=== PATIENT | female | born 1940 | race Asian ===

== ENCOUNTER 2019-06-01 05:12 | Day surgery (SDC) | payer MEDICARE, SELFPAY ==
[2019-05-31 18:01] VITALS: BMI 23.8
[2019-06-01] VITALS (8 sets, daily range): BP systolic 110–148; BP diastolic 44–66; PULSE 60–65; RESP 8–19; TEMP 36.6; O2SAT 99–100
[2019-06-01 07:46] LABS: Basophils Absolute Auto 0.1 K/mm3 (0.0-0.1); Basophils Percent Auto 0.8 % (0.2-1.2); Eosinophils Absolute Auto 0.2 K/mm3 (0-0.3); Eosinophils Percent Auto 2.3 % (0-4.4); Hematocrit 40.7 % (37.0-47.0); Hemoglobin 12.8 g/dL (12.0-15.0); Immature Granulocyte Absolute 0.01 K/mm3 (0.00-0.031); Immature Granulocyte Percent A 0.1 % (0-0.5); Lymphocytes Percent Auto 36.1 % (18.3-44.2); Mean Corpuscular HGB Conc 31.4 g/dl (32-36); Mean Corpuscular Hemoglobin 30.8 pg (26-34); Mean Corpuscular Volume 97.8 fl (80-100); Mean Platelet Volume 9.4 fl (7.4-10.4); Monocytes Absolute Auto 0.5 K/mm3 (0.1-0.6); Monocytes Percent Auto 6.4 % (2.6-8.5); Neutrophils Absolute Auto 4.2 K/mm3 (1.3-6.7); Neutrophils Percent Auto 54.3 % (45.5-73.1); Platelet Count Result 172 k/mm3 (150-375); Red Blood Count 4.16 M/mm3 (4.2-5.4); Red Cell Distribution Width 14.8 % (11.5-14.5); White Blood Count 7.8 K/mm3 (4.5-10.0)
[2019-06-01 07:57] LABS: INR 1.1; Prothrombin Time 13.4 Seconds (11.1-14.7)
[2019-06-01 07:58] LABS: Blood Urea Nitrogen 33 mg/dL (7-17); Calcium 9.8 mg/dL (8.4-10.2); Carbon Dioxide 29 mmol/L (22-30); Chloride 104 mmol/L (98-107); Estimated CRCL calculation 22 ml/min; Estimated Glomerular Filt Rate 29; Glucose 145 mg/dL (65-105); Potassium 4.4 mmol/L (3.4-5.0); Sodium 139 mmol/L (137-145)
--- NOTE | 2019-06-01 08:43 | WPDMODSED ---
Moderate Sedation Note-Pt Data Patient Data Diagnosis: Chronic complete heart block with dual-chamber pacemaker at [facility] history of coronary artery disease status post CABG Present Complaint: no cardiovascular Procedure to be performed/Plan: pacemaker generator change anticipate placement of temporary transvenous pacemaker during this procedure as the patient is pacemaker dependent Allergies Allergy/AdvReac Type Severity Reaction Status Date / Time GILMAR Inhibitors Allergy Unknown Unknown Verified 02/21/19 14:55 losartan Allergy Unknown Unknown Verified 02/21/19 14:55 Home Medications Medication Instructions Recorded Confirmed Type flash glucose scanning reader #1 each 02/21/19 History flash glucose sensor #1 each 02/21/19 History lancets 30 gauge #25 each 02/21/19 History pen needle, diabetic 32 gauge x #100 each 02/21/19 History 1/6 semaglutide 0.25 mg SUB-Q WEEKLY 02/21/19 05/31/19 History sitagliptin 50 mg tablet 50 mg PO DAILY 02/21/19 05/31/19 History sotalol 80 mg tablet 80 mg PO BID 02/21/19 06/01/19 History glimepiride 2 mg tablet 1 mg PO QAM #90 tablet 05/30/19 05/31/19 Rx rosuvastatin 10 mg tablet 10 mg PO DAILY #90 tablet 05/30/19 05/31/19 Rx multivitamin 1 tablet PO DAILY 05/31/19 05/31/19 History omega 8-qxw-epo-fish oil 1 cap PO BID 05/31/19 05/31/19 History hydralazine 25 mg PO BID 06/01/19 06/01/19 History rivaroxaban [Xarelto] 20 mg PO DAILY 06/01/19 06/01/19 History Sedation/Anesthesia: No previous sedation/anesthesia problems (including family history). 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 Social History Social History Smoking status: Former smoker Second hand tobacco smoke exposure: No Smoking end date: 03/28/09 Alcohol intake: never Gender identity (if verbalized by the patient): Female Mod Sed Physical Exam Physical Exam Pre Procedural Exam: Normal: Appearance, Neck, Throat, Airway, Lungs, Heart Size, Heart Rate, Heart Rhythm, Neuro Exam and Extremities Hours since solid foods: 12 Hours since liquid intake: 12 Internal Medicine - PN: Obj Da Vital Signs Vital Signs: Vital Signs - 24 hr 06/01/19 07:55 Temperature 36.6 C Pulse Rate 65 Respiratory Rate 19 Blood Pressure 148/59 H Pulse Oximetry 100 Labs CBC & Chem 7: 06/01/19 07:31 06/01/19 07:31 Labs: Laboratory Results - last 24 hr 06/01/19 06/01/19 06/01/19 07:31 07:31 07:31 WBC 7.8 RBC 4.16 L Hgb 12.8 Hct 40.7 MCV 97.8 MCH 30.8 MCHC 31.4 L RDW 14.8 H Plt Count 172 MPV 9.4 Immature Gran % (Auto) 0.1 Neut % (Auto) 54.3 Lymph % (Auto) 36.1 [place] % (Auto) 6.4 Eos % (Auto) 2.3 Baso % (Auto) 0.8 Lymph # (Auto) 2.80 [place] # (Auto) 0.5 Eos # (Auto) 0.2 Baso # (Auto) 0.1 Abs Immat Gran (auto) 0.01 Absolute Neuts (auto) 4.2 Absolute Nucleated RBC 0.0 Nucleated RBC % 0.0 PT 13.4 INR 1.1 Sodium 139 Potassium 4.4 Chloride 104 Carbon Dioxide 29 BUN 33 H Creatinine 1.70 H Estim Creat Clear Calc 22 Estimated GFR 29 L Glucose 145 H Calcium 9.8 ASA Classification/Sedation ASA Classification/Sedation ASA Class: II Emergent: No Risks: Risks, benefits and alternatives explained and patient/family accepted plan for sedation. Patient re-evaluated immediately prior to sedation.
[2019-06-01] MEDS: SODIUM CHLORIDE 0.9% IV 500 ML 125 ML (09:39)
--- NOTE | 2019-06-01 10:04 | WPDCARDPROC ---
Cardiac Cath Procedure Note Date of procedure:: 06/01/19 Performing physician:: Jamari Ochoa MD Indication:: Permanent dual-chamber pacemaker at [facility] Brief clinical history:: 78-year-old woman with both coronary artery disease and complete heart block. She has had a dual-chamber pacemaker since the year 1999. Her current generator, I believe her 3rd is now at [facility] and is in need of a replacement. Procedure Procedure performed:: Patient was brought to the cardiac catheterization lab in the postabsorptive state the right femoral triangle was prepped and draped in the usual fashion. Anesthesia was given with 1% lidocaine infiltrated locally. Using modified Seldinger technique the right femoral vein was punctured and a 6 Bangladeshi vascular sheath was placed. A 5 Bangladeshi balloon tipped temporary pacing catheter was then placed into the venous circulation under under fluoroscopic guidance into the right ventricular apex. Appropriate pacing performance was demonstrated. This was done because the patient is pacemaker dependent. Following this attention was turned to the replacement of the permanent generator. The left anterior chest wall over the chronically implanted pocket was prepped and draped in the usual fashion. The patient received Ancef IV prior to the procedure. 1% lidocaine was infiltrated above the pocket and incision was then made using the plasma blade. Electrocautery was used to provide cutaneous hemostasis. The fibrous capsule of the chronically implanted pocket was encountered and opened with the plasma blade. The chronically implanted device was explanted and was visually intact. This was a very small device with a small battery so I elected to extend the pocket inferiorly using the plasma blade to accommodate the larger generator. Following this the pocket was irrigated using antibiotic infused saline. The leads were disconnected from the depleted generator and connected to the new generator as detailed below. The leads were tested using the analyzer with the results as detailed below. Because of high atrial lead impedance I elected to reprogrammed to unipolar atrial pacing which was favorable. I elected to make this decision rather than place a 3rd pacemaker lead in the subclavian vein. Fluoroscopically the leads were in unusual position with very little slack. The new generator was then connected to the leads the entire assembly was placed into the pocket and this was closed in layers using 3 0 Vicryl in interrupted fashion for the subcutaneous tissue with 4 0 Vicryl in a running subcuticular fashion for the skin. Wound was dressed with an Aquacel dressing and a pressure dressing. The patient was taken to the holding area for recovery in stable condition with there were no procedural complications that were apparent Sedation/Medication given:: fentanyl 100 mg Versed 2 mg case start time 9:00 a.m. case end time 10 a.m. sedation provided by Olivia Lees RN, trained observer Access site:: right femoral vein Estimated blood loss:: 10-15 cc Procedure note:: see above Findings:: the device implanted is a Medtronic dual-chamber pacemaker model W1DR01 dual-chamber pacemaker serial number [id number] . the device is programmed in the DDDR mode lower rate limit 30 upper rate limit 1 Prieb 0 outputs in both leads are at 2 mV at 0.4 milliseconds. The atrial lead is a Medtronic bipolar tined model 4592-4 5, serial number [id number]. P-waves are sensed 4.4 mV impedance 342 Ohms unipolar threshold 0.7 at 0.4 milliseconds. Bipolar impedance was 2451 the ventricular lead is a Medtronic bipolar tined lead model 4/90 2-52, serial [id number] . the patient is dependent there were no R-waves to sense the impedance is 437 Ohms . threshold 1 volt at 0.4 millisecond Conclusion:: successful uncomplicated explantation of failed Sammi pacemaker pulse generator due to battery at [facility] and implantation of new dual-chamber pu
--- NOTE | 2019-06-01 12:41 | SUR.PHASEII ---
DISCHARGE INSTRUCTIONS REVIEWED WITH PATIENT AND SPOUSE, ALL QUESTIONS ANSWERED, IV DISCONTINUED, PATIENT DRESSING SELF, AND PATIENT TAKEN OUT TO PRIVATE VEHICLE VIA WHEELCHAIR.
== END 2019-06-01 12:43 | disposition home or self-care (01) ==
PROVIDERS: PCP Internal Medicine; Visit Provider Specialist
PROC: 0JPT0PZ Removal of Cardiac Rhythm Related Device from Trunk Subcutaneous Tissue and Fascia, Open Approach (ICD-10-PCS; CPT 33228; principal; 2019-06-01 08:30)
DX: Z45.010 Encounter for checking and testing of cardiac pacemaker pulse generator [battery] (principal); I25.10 Atherosclerotic heart disease of native coronary artery without angina pectoris; I44.2 Atrioventricular block, complete; I48.91 Unspecified atrial fibrillation; I12.9 Hypertensive chronic kidney disease with stage 1 through stage 4 chronic kidney disease, or unspecified chronic kidney disease; N18.9 Chronic kidney disease, unspecified; E11.22 Type 2 diabetes mellitus with diabetic chronic kidney disease; E78.5 Hyperlipidemia, unspecified; Z85.42 Personal history of malignant neoplasm of other parts of uterus; Z95.1 Presence of aortocoronary bypass graft; Z79.84 Long term (current) use of oral hypoglycemic drugs; Z79.01 Long term (current) use of anticoagulants; Z87.891 Personal history of nicotine dependence
CPT/HCPCS: 33208; 33228; 36415; 80048; 85025; 85610; C1785; C1894; J0690; J1644; J2250; J3010; J7040

== ENCOUNTER 2019-06-08 08:33 | Outpatient (CLI) | payer MEDICARE, SELFPAY ==
[2019-06-08 09:15] LABS: Blood Urea Nitrogen 25 mg/dL (7-17); Calcium 9.9 mg/dL (8.4-10.2); Carbon Dioxide 28 mmol/L (22-30); Chloride 103 mmol/L (98-107); Cholesterol 157 mg/dL (0-200); Estimated Glomerular Filt Rate 34; Glucose 144 mg/dL (65-105); HDL Direct 59 mg/dL; Potassium 4.7 mmol/L (3.4-5.0); Sodium 140 mmol/L (137-145); Triglycerides 270 mg/dL (<150)
[2019-06-08 09:26] LABS: LDL Cholesterol Direct 53 mg/dL
[2019-06-08 09:34] LABS: Hemoglobin A1C 7.4 % (<5.7)
[2019-06-08 10:43] LABS: Microalbumin Urine Random > 1140.0 mg/L (0-16.7)
[2019-06-11 02:09] LABS: Homocysteine 16.4 umol/L (<10.4)
== END 2019-06-08 08:34 | disposition home or self-care (01) ==
PROVIDERS: PCP Internal Medicine; Visit Provider Internal Medicine
DX: E11.22 Type 2 diabetes mellitus with diabetic chronic kidney disease (principal); N18.2 Chronic kidney disease, stage 2 (mild); E78.2 Mixed hyperlipidemia; R79.89 Other specified abnormal findings of blood chemistry; Z79.899 Other long term (current) drug therapy; I10 Essential (primary) hypertension
CPT/HCPCS: 36415; 80048; 80061; 82043; 83036; 83090; 84443

== ENCOUNTER 2019-10-09 07:11 | Outpatient (CLI) | payer MEDICARE, SELFPAY ==
[2019-10-09 07:48] LABS: Blood Urea Nitrogen 32 mg/dL (7-17); Calcium 9.9 mg/dL (8.4-10.2); Carbon Dioxide 27 mmol/L (22-30); Chloride 102 mmol/L (98-107); Cholesterol 152 mg/dL (0-200); Estimated Glomerular Filt Rate 34; Glucose 168 mg/dL (65-105); HDL Direct 47 mg/dL; Potassium 4.8 mmol/L (3.4-5.0); Sodium 138 mmol/L (137-145); Triglycerides 352 mg/dL (<150)
[2019-10-09 07:50] LABS: Hemoglobin A1C 8.1 % (<5.7)
[2019-10-09 07:58] LABS: LDL Cholesterol Direct 46 mg/dL
[2019-10-13 16:36] LABS: Homocysteine 15.3 umol/L (<10.4)
== END 2019-10-09 07:12 | disposition home or self-care (01) ==
PROVIDERS: PCP Internal Medicine; Visit Provider Internal Medicine
DX: E11.22 Type 2 diabetes mellitus with diabetic chronic kidney disease (principal); N18.2 Chronic kidney disease, stage 2 (mild); R79.89 Other specified abnormal findings of blood chemistry; Z79.899 Other long term (current) drug therapy; E78.2 Mixed hyperlipidemia; I12.9 Hypertensive chronic kidney disease with stage 1 through stage 4 chronic kidney disease, or unspecified chronic kidney disease
CPT/HCPCS: 36415; 80048; 80061; 83036; 83090; 84443

== ENCOUNTER 2019-10-29 13:54 | Outpatient (CLI) | payer MEDICARE, SELFPAY ==
--- NOTE | ~2019-10-29 | CT_ITS ---
EXAMINATION: CT abdomen pelvis w con DATE: 10/29/2019 14:53 INDICATION: Lower abdominal pain, change in bowel habits TECHNIQUE: Computed tomography (CT) of the abdomen and pelvis was performed with 100 cc Omnipaque 350 intravenous contrast. Automated exposure control and iterative reconstruction technique were employe d. Exam dose: 269.52 mGy-cm total exam DLP. COMPARISON: 02/14/2019 CT abdomen pelvis FINDINGS: There is discoid atelectasis and/or scarring in both lower lung zones. Status post sternotomy. Pacemaker leads are noted in the right atrium and right ventricle. Mild cardi omegaly. No pericardial or pleural effusion. There is diffuse hepatic steatosis. No hepatic or pancreatic, splenic, adrenal or renal space-occupyi ng mass lesion. There is extensive calcification of the abdominal aorta; no abdominal aortic aneurysm. Prominent calc ification at the origins of the renal arteries, especially the left. No intraperitoneal or retroperit gloria or pelvic mass lesion or adenopathy or ascites. No urinary tract calculus or hydroureteronephrosis. The urinary bladder is unremarkable. Status post hysterectomy. There is soft tissue thickening of the wall of the sigmoid colon and pericolic increased fat density associated with diverticula, likely due to sigmoid diverticulitis. No apparent abscess is identified. Normal appendix. No bowel obstruction. No intraperitoneal free air. There are multiple gallstones. The gallbladder wall is approximately 1.5-2 mm thick, within upper nor mal limits. No pericholecystic fluid or stranding. No bile duct or pancreatic duct dilatation. Diffuse idiopathic skeletal hyperostosis of the thoracic spine. Severe degenerative disc disease of t he lumbar spine. No suspicious osteolytic or osteoblastic lesions are noted. IMPRESSION: Diverticulitis of the sigmoid colon; no drainable abscess is identified Diverticulosis of the left colon Hepatic steatosis Cholelithiasis Reviewed, dictated and finalized at [facility]. Reviewed, dictated and finalized at location [facility]. IMPRESSION: Diverticulitis of the sigmoid colon; no drainable abscess is ident ified Diverticulosis of the left colon Hepatic steatosis Cholelithiasis
[2019-10-29 14:15] LABS: Basophils Percent Auto 0.4 % (0.2-1.2); Eosinophils Absolute Auto 0.1 K/mm3 (0-0.3); Eosinophils Percent Auto 1.1 % (0-4.4); Hematocrit 38.4 % (37.0-47.0); Hemoglobin 12.4 g/dL (12.0-15.0); Immature Granulocyte Absolute 0.03 K/mm3 (0.00-0.031); Immature Granulocyte Percent A 0.3 % (0-0.5); Lymphocytes Absolute Auto 2.49 K/mm3 (0.9-3.2); Lymphocytes Percent Auto 27.6 % (18.3-44.2); Mean Corpuscular HGB Conc 32.3 g/dl (32-36); Mean Corpuscular Hemoglobin 31.8 pg (26-34); Mean Corpuscular Volume 98.5 fl (80-100); Monocytes Absolute Auto 0.8 K/mm3 (0.1-0.6); Monocytes Percent Auto 8.3 % (2.6-8.5); Neutrophils Absolute Auto 5.6 K/mm3 (1.3-6.7); Neutrophils Percent Auto 62.3 % (45.5-73.1); Platelet Count Result 182 k/mm3 (150-375); Red Cell Distribution Width 13.6 % (11.5-14.5)
[2019-10-29 14:31] LABS: Anion Gap 12.9 mmol/L (7-16); Blood Urea Nitrogen 29 mg/dL (7-17); Calcium 9.2 mg/dL (8.4-10.2); Carbon Dioxide 29 mmol/L (22-30); Chloride 99 mmol/L (98-107); Estimated Glomerular Filt Rate 36; Glucose 135 mg/dL (65-105); Potassium 3.9 mmol/L (3.4-5.0); Sodium 137 mmol/L (137-145)
== END 2019-10-29 13:55 | disposition home or self-care (01) ==
PROVIDERS: PCP Internal Medicine; Visit Provider Internal Medicine
DX: R10.30 Lower abdominal pain, unspecified (principal); Z79.899 Other long term (current) drug therapy
CPT/HCPCS: 36415; 74177; 80048; 85025; Q9967

== ENCOUNTER 2019-11-19 07:37 | Outpatient (CLI) | payer MEDICARE, SELFPAY ==
[2019-11-19 08:28] LABS: Alanine Aminotransferase 22 U/L (4-35); Albumin Level 3.9 g/dL (3.5-5.1); Alkaline Phosphatase 96 U/L (38-126); Anion Gap 7 mmol/L (8-16); Aspartate Amino Transferase 32 U/L (14-36); Bilirubin,Total 0.5 mg/dL (0.2-1.3); Blood Urea Nitrogen 18 mg/dL (7-17); Calcium 9.5 mg/dL (8.4-10.2); Carbon Dioxide 29 mmol/L (22-30); Chloride 104 mmol/L (98-107); Cholesterol 171 mg/dL (0-200); Estimated Glomerular Filt Rate 40; Glucose 151 mg/dL (65-105); HDL Direct 47 mg/dL; Potassium 5.2 mmol/L (3.4-5.0); Sodium 140 mmol/L (137-145); Triglycerides 401 mg/dL (<150)
[2019-11-19 08:39] LABS: LDL Cholesterol Direct 62 mg/dL
[2019-11-19 08:41] LABS: Hemoglobin A1C 7.6 % (<5.7)
[2019-11-19 09:15] LABS: Digoxin < 0.4 ng/mL (0.8-2.0)
[2019-11-21 21:51] LABS: Homocysteine 12.7 umol/L (<10.4)
[2019-11-22 08:44] LABS: Vitamin D 1,25 (OH)2 Total 32 pg/mL (18-72); Vitamin D2 1,25 (OH)2 <8 pg/mL; Vitamin D3 1,25 (OH)2 32 pg/mL
== END 2019-11-19 07:38 | disposition home or self-care (01) ==
PROVIDERS: PCP Internal Medicine; Visit Provider Internal Medicine
DX: E55.9 Vitamin D deficiency, unspecified (principal); Z79.899 Other long term (current) drug therapy; I25.10 Atherosclerotic heart disease of native coronary artery without angina pectoris; E11.9 Type 2 diabetes mellitus without complications; E78.2 Mixed hyperlipidemia; R79.89 Other specified abnormal findings of blood chemistry
CPT/HCPCS: 36415; 80048; 80061; 80076; 80162; 82652; 83036; 83090

== ENCOUNTER 2020-04-07 07:51 | Outpatient (CLI) | payer MEDICARE, SELFPAY ==
[2020-04-07 08:24] LABS: Basophils Absolute Auto 0.1 K/mm3 (0.0-0.1); Basophils Percent Auto 0.9 % (0.2-1.2); Eosinophils Absolute Auto 0.2 K/mm3 (0-0.3); Hematocrit 41.4 % (37.0-47.0); Hemoglobin 13.4 g/dL (12.0-15.0); Immature Granulocyte Absolute 0.01 K/mm3 (0.00-0.031); Immature Granulocyte Percent A 0.1 % (0-0.5); Mean Corpuscular HGB Conc 32.4 g/dl (32-36); Mean Corpuscular Hemoglobin 31.9 pg (26-34); Mean Corpuscular Volume 98.6 fl (80-100); Mean Platelet Volume 10.4 fl (7.4-10.4); Monocytes Absolute Auto 0.5 K/mm3 (0.1-0.6); Neutrophils Absolute Auto 3.9 K/mm3 (1.3-6.7); Platelet Count Result 177 k/mm3 (150-375); Red Cell Distribution Width 13.4 % (11.5-14.5); White Blood Count 8.1 K/mm3 (4.5-10.0)
[2020-04-07 08:31] LABS: Add Urine Microscopic? YES; Appearance Urine Clear (Clear); Bacteria Urine Trace /hpf; Bilirubin Urine Negative (Negative); Blood Urine Negative (Negative); Budding Yeast Urine Present /hpf; Color Urine Yellow (Yellow); Glucose Urine UA 1+ mg/dL (Negative); Ketones Urine Negative (Negative); Leukocyte Esterase Ur 3+ LEU/UL (NEGATIVE); Mucus Urine Rare /lpf; Nitrate Urine Negative (Negative); Protein Urine 3+ mg/dL (Negative); Specific Grav Ur 1.014 (1.001-1.035); Squamous Epithelial Cell Urine Moderate /hpf (Few); Transitional Epi Cells Urine Rare /hpf (None Seen); Urobilinogen Urine Negative mg/dL (<2.0); WBC Urine 31-50 /hpf (0-3)
[2020-04-07 08:38] LABS: Alanine Aminotransferase 20 U/L (4-35); Albumin Level 4.2 g/dL (3.5-5.1); Alkaline Phosphatase 79 U/L (38-126); Anion Gap 5 mmol/L (8-16); Aspartate Amino Transferase 36 U/L (14-36); Bilirubin,Total 0.5 mg/dL (0.2-1.3); Blood Urea Nitrogen 32 mg/dL (7-17); Calcium 9.7 mg/dL (8.4-10.2); Carbon Dioxide 31 mmol/L (22-30); Chloride 102 mmol/L (98-107); Cholesterol 179 mg/dL (0-200); Estimated Glomerular Filt Rate 31; Glucose 188 mg/dL (65-105); HDL Direct 62 mg/dL; Potassium 4.3 mmol/L (3.4-5.0); Sodium 138 mmol/L (137-145); Triglycerides 349 mg/dL (<150)
[2020-04-07 08:49] LABS: LDL Cholesterol Direct 57 mg/dL
[2020-04-07 09:14] LABS: Creatinine Urine 87.2 mg/dL
[2020-04-07 10:12] LABS: Microalbumin Urine Random > 1140.0 mg/L (0-16.7)
[2020-04-07 10:49] LABS: Hemoglobin A1C 8.6 % (<5.7)
== END 2020-04-07 07:52 | disposition home or self-care (01) ==
PROVIDERS: PCP Internal Medicine; Visit Provider Internal Medicine
DX: E11.22 Type 2 diabetes mellitus with diabetic chronic kidney disease (principal); I12.9 Hypertensive chronic kidney disease with stage 1 through stage 4 chronic kidney disease, or unspecified chronic kidney disease; N18.2 Chronic kidney disease, stage 2 (mild); E78.2 Mixed hyperlipidemia; Z51.81 Encounter for therapeutic drug level monitoring; Z79.899 Other long term (current) drug therapy
CPT/HCPCS: 36415; 80053; 80061; 81001; 82043; 83036; 85025

== ENCOUNTER 2020-04-17 08:45 | Outpatient (CLI) | payer MEDICARE, SELFPAY ==
--- NOTE | ~2020-04-17 | US_ITS ---
EXAMINATION: US renal BI EXAM DATE: 04/17/2020 09:22 INDICATION: R79.89 - Other specified abnormal findings of blood chemistry. Abnormal labs. TECHNIQUE: Multiple grayscale and Doppler images of the kidneys were obtained (by a technologist who performed the scan) and subsequently reviewed. There is no prior study for comparison. FINDINGS: Incidental note made of hepatic steatosis. There is bilateral renal cortical thinning. Right kidney: There is normal contour and echogenicity. It measures 9.5 x 3.7 x 3.9 centimeters. Th ere are no focal renal lesions identified. There is no hydronephrosis. Left kidney: There is normal contour and echogenicity. It measures 9.1 x 3.3 x 4.7 centimeters. The re are no focal renal lesions identified. There is no hydronephrosis. Bladder unremarkable. Bilateral ureteral jets were confirmed. IMPRESSION: 1. Mild bilateral renal atrophy. 2. No hydronephrosis. 3. Hepatic steatosis. Reviewed, dictated and finalized at location [facility]. 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
== END 2020-04-17 08:46 | disposition home or self-care (01) ==
PROVIDERS: PCP Internal Medicine; Visit Provider Internal Medicine
DX: R79.89 Other specified abnormal findings of blood chemistry (principal); N26.1 Atrophy of kidney (terminal); K76.0 Fatty (change of) liver, not elsewhere classified
CPT/HCPCS: 76775

== ENCOUNTER 2020-04-25 07:48 | Outpatient (CLI) | payer MEDICARE, SELFPAY ==
[2020-04-29 12:55] LABS: Albumin 24 Hr Urine 68 %; Creatinine, 24 Hr Urine 0.35 g/24 h (0.50-2.15); Total Protein/Creatinine Ratio 2798 mg/g creat (<115)
== END 2020-04-25 07:49 | disposition home or self-care (01) ==
LOC: ANHLAB 07:50
PROVIDERS: PCP Internal Medicine; Visit Provider Internal Medicine
DX: R79.89 Other specified abnormal findings of blood chemistry (principal); E11.22 Type 2 diabetes mellitus with diabetic chronic kidney disease; N18.2 Chronic kidney disease, stage 2 (mild)
CPT/HCPCS: 81050; 82570; 84156; 84166

== ENCOUNTER 2020-07-02 08:44 | Outpatient (CLI) | payer MEDICARE, SELFPAY ==
[2020-07-02 09:52] LABS: Albumin Level 4.2 g/dL (3.5-5.1); Anion Gap 7 mmol/L (8-16); Blood Urea Nitrogen 33 mg/dL (7-17); Calcium 9.3 mg/dL (8.4-10.2); Carbon Dioxide 29 mmol/L (22-30); Chloride 99 mmol/L (98-107); Estimated Glomerular Filt Rate 29; Glucose 247 mg/dL (65-105); Phosphorus 4.4 mg/dL (2.5-4.5); Potassium 4.6 mmol/L (3.4-5.0); Sodium 135 mmol/L (137-145)
[2020-07-02 09:54] LABS: Creatinine Urine 24.7 mg/dL; Total Protein Urine Random 111 mg/dL; Ur Ttl Prot Creatinine Ratio 4.49 mg/mg (0-0.20)
[2020-07-02 09:58] LABS: Complement C3 136 mg/dL (88-165)
[2020-07-02 10:13] LABS: Sodium Urine Random 19 meq/L
[2020-07-02 10:14] LABS: Eosinophil Urine None Seen % (None Seen)
[2020-07-06 06:14] LABS: Albumin 3.5 g/dL (3.8-4.8); Alpha 1 Globulin 0.3 g/dL (0.2-0.3); Alpha 2 Globulin 0.9 g/dL (0.5-0.9); Beta 1 Globulin 0.6 g/dL (0.4-0.6); Gamma Globulin 1.5 g/dL (0.8-1.7); Protein, Total 7.2 g/dL (6.1-8.1)
[2020-07-07 22:34] LABS: Anti Nuclear Antibody Titer >=1:1280 (Negative)
[2020-07-08 05:45] LABS: Creatinine, Random Urine 26 mg/dL (20-275); Total Protein/Creatinine Ratio 3423 mg/g creat (21-161)
[2020-07-10 11:47] LABS: ANCA Screen Negative (Negative)
== END 2020-07-02 08:45 | disposition home or self-care (01) ==
PROVIDERS: PCP Internal Medicine; Visit Provider Internal Medicine Nephrology
DX: N18.32 Chronic kidney disease, stage 3b (principal); R80.8 Other proteinuria; E11.29 Type 2 diabetes mellitus with other diabetic kidney complication; I12.9 Hypertensive chronic kidney disease with stage 1 through stage 4 chronic kidney disease, or unspecified chronic kidney disease
CPT/HCPCS: 36415; 80069; 82570; 84155; 84156; 84165; 84166; 84300; 85999; 86021; 86038; 86039; 86160; 86225

== ENCOUNTER → 2020-08-09 03:35 | Outpatient (CLI) | payer MEDICARE, SELFPAY ==
[2020-08-09 19:43] LABS: SARS-CoV-2 RNA PCR Negative
== END ==
PROVIDERS: PCP Internal Medicine; Visit Provider Specialist
DX: Z01.812 Encounter for preprocedural laboratory examination (principal); Z20.822 Contact with and (suspected) exposure to COVID-19
CPT/HCPCS: C9803; U0003; U0005

== ENCOUNTER 2020-08-13 02:36 | Day surgery (SDC) | payer MEDICARE, SELFPAY ==
[2020-08-13] VITALS (8 sets, daily range): BP systolic 100–152; BP diastolic 49–72; PULSE 63–90; RESP 12–17; TEMP 36.1–36.3; O2SAT 95–100; BMI 22.3
--- NOTE | 2020-08-13 08:30 | ECG_ITS ---
Measurements Intervals [place] Rate: 84 P: [place]: 0 QRS: -62 QRSD: 179 T: 113 QT: 471 QTc: 558 Interpretive Statements ELECTRONIC VENTRICULAR PACEMAKER NO FURTHER INTERPRETATION IS POSSIBLE ATYPICAL ECG Electronically Signed On 08-13-2020 8:54:32 CDT by Pedro Rogers D.O.
[2020-08-13 09:18] LABS: Anion Gap 7 mmol/L (8-16); Blood Urea Nitrogen 43 mg/dL (7-17); Calcium 10.2 mg/dL (8.4-10.2); Carbon Dioxide 30 mmol/L (22-30); Chloride 104 mmol/L (98-107); Estimated Glomerular Filt Rate 34; Glucose 171 mg/dL (65-105); Magnesium 2.2 mg/dL (1.6-2.3); Potassium 4.8 mmol/L (3.4-5.0); Sodium 141 mmol/L (137-145)
--- NOTE | 2020-08-13 10:16 | WPDMODSED ---
Moderate Sedation Note-Pt Data Patient Data Diagnosis: Persistent atrial flutter of recent onset Complete heart block with chronically implanted dual-chamber pacemaker Atrial lead with suspected lead fracture, high impedance and bipolar mode Present Complaint: Exertional fatigue and dyspnea Procedure to be performed/Plan: DC cardioversion Allergies Allergy/AdvReac Type Severity Reaction Status Date / Time GILMAR Inhibitors Allergy Unknown Unknown Verified 08/13/20 09:15 losartan Allergy Unknown Unknown Verified 08/13/20 09:15 Home Medications Medication Instructions Recorded Confirmed Type lancets 30 gauge #25 each 02/21/19 06/17/20 History pen needle, diabetic 32 gauge x #100 each 02/21/19 06/17/20 History 1/6 multivitamin 1 tablet PO DAILY 05/31/19 08/13/20 History omega 2-zyi-qda-fish oil 1,200 mg 2 cap PO BID cap 06/25/19 08/13/20 History (144 mg-216 mg) capsule rivaroxaban 15 mg tablet 15 mg PO DAILY 06/25/19 08/13/20 History hydralazine 25 mg tablet 25 mg PO BID #180 tablet 03/19/20 08/13/20 Rx allopurinol 300 mg tablet 300 mg PO DAILY #90 tablet 05/07/20 08/13/20 Rx rosuvastatin 10 mg tablet 10 mg PO DAILY #90 tablet 05/07/20 08/13/20 Rx sotalol 80 mg tablet 80 mg PO BID #180 tablet 05/07/20 08/13/20 Rx insulin glargine U-300 conc 300 32 unit SUBCUT DAILY #4.5 ml 05/28/20 08/13/20 Rx unit/mL (1.5 mL) subcutaneous pen blood-glucose meter #1 ea 07/23/20 Rx flash glucose scanning reader #1 07/23/20 Rx flash glucose sensor #1 ea 07/23/20 Rx Current Medications: Active Medications Sodium Chloride (Normal Saline Iv) 1,000 mls @ 30 mls/hr IV CONT .Q24H UMER Sedation/Anesthesia: No previous sedation/anesthesia problems (including family history). 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) A-fib Abdominal pain Abnormal vaginal bleeding ASHD (arteriosclerotic heart disease) Benign essential hypertension BMI 23.0-23.9, adult Cardiac pacemaker in situ Carotid artery disease Change in bowel habits CKD (chronic kidney disease) Diverticulitis DM type 2 (diabetes mellitus, type 2) Elevated homocysteine Elevated serum creatinine Encounter for Medicare annual wellness exam Encounter for routine adult health examination with abnormal findings Encounter for routine adult health examination without abnormal findings Encounter for routine adult medical exam with abnormal findings Endometrial cancer Follow up Hearing loss History of vaginal delivery x3 Hx of colonic polyps Hyperlipidemia Impacted cerumen of right ear 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 Proteinuria Uncontrolled type 2 diabetes mellitus with insulin therapy Vision changes Vitamin D deficiency Surgical History Surgical History History of bilateral tubal ligation S/P cardiac pacemaker procedure Family History Family History Grandparent Diabetes mellitus Other Family history of malignant neoplasm of breast Family history of malignant neoplasm of cervix Hypertension Social History Social History Smoking status: Former smoker Second hand tobacco smoke exposure: No Smoking end date: 03/28/09 Alcohol intake: never Gender identity (if verbalized by the patient): Female Mod Sed Physical Exam Physical Exam Pre Procedural Exam: Normal: Appearance, Neck, Throat, Airway, Lungs, Heart Size, Heart Rate, Heart Rhythm, Neuro Exam and Extremities Hours since solid foods: 12 Hours since liquid intake: 12 Internal Medicine - PN: Obj Da Vital Signs Vital Signs: Vital Signs - 24 hr 08/13/20 09:00 Temperature 36.1 C L Pulse Rate 63 Respiratory Rate 13 Blood Pressure 146/58 H Pulse Oximetry 100 Meds/Results Medications: Active Medications Generic Name Dose Route Start Last Admin Trade Name Freq PRN Reason
--- NOTE | 2020-08-13 10:36 | WPDCARDPROC ---
Cardiac Cath Procedure Note Date of procedure:: 08/13/20 Performing physician:: Jamari Ochoa MD Indication:: Persistent atrial flutter Underlying complete heart block with chronically implanted dual-chamber pacemaker Brief clinical history:: This is a 79-year-old lady with coronary artery disease and complete heart block. She has had a prior history of atrial fibrillation and significant symptomatology any time she loses AV synchrony. She now has become symptomatic with persistent atrial flutter. Her device is mode switching and she is ventricularly pacing. An attempt to restore sinus rhythm electrically this morning has been scheduled. The Medtronic pacemaker rep is in the procedure in attendance. Procedure Procedure performed:: DC cardioversion Sedation/Medication given:: Propofol 40 mg Estimated blood loss:: No blood loss Procedure note:: Patient was in the postabsorptive state placed in the supine position with defibrillator patches in the AP position. She was sedated with propofol a total dosage of 40 mg was given which provided excellent sedation. She was then cardioverted using 200 joules x1 shock. The atrial flutter was terminated but for a short time there was a long pause that was terminated by increasing the ventricular pacemaker output. The patient was in an AV paced rhythm. After recovery the atrial and ventricular thresholds were checked and were back to baseline. Following recovery from propofol the patient appears to be asymptomatic and offers no complaints. Findings:: As above Conclusion:: 1. Successful uncomplicated DC cardioversion of atrial flutter to AV paced rhythm 2. The ventricular threshold was transiently elevated following electrical defibrillation and after short time appears to be back to baseline. Jamari Ochoa MD [facility]
--- NOTE | 2020-08-13 10:41 | ECG_ITS ---
Measurements Intervals [place] Rate: 103 P: -64 [place]: 232 QRS: 156 QRSD: 29 T: 209 QT: 171 QTc: 224 Interpretive Statements ELECTRONIC ATRIAL PACEMAKER ELECTRONIC VENTRICULAR PACEMAKER NO FURTHER INTERPRETATION IS POSSIBLE ATYPICAL ECG Electronically Signed On 08-13-2020 11:12:26 CDT by Pedro Rogers D.O.
== END 2020-08-13 11:30 | disposition home or self-care (01) ==
PROVIDERS: PCP Internal Medicine; Visit Provider Specialist
PROC: 5A2204Z Restoration of Cardiac Rhythm, Single (ICD-10-PCS; principal; 2020-08-13 10:00)
DX: I48.92 Unspecified atrial flutter (principal); I12.9 Hypertensive chronic kidney disease with stage 1 through stage 4 chronic kidney disease, or unspecified chronic kidney disease; I25.10 Atherosclerotic heart disease of native coronary artery without angina pectoris; N18.9 Chronic kidney disease, unspecified; E11.22 Type 2 diabetes mellitus with diabetic chronic kidney disease; E78.5 Hyperlipidemia, unspecified; E55.9 Vitamin D deficiency, unspecified; Z79.01 Long term (current) use of anticoagulants; Z95.0 Presence of cardiac pacemaker; Z87.891 Personal history of nicotine dependence
CPT/HCPCS: 36415; 80048; 83735; 92960; 93005; J2704; J7040

== ENCOUNTER 2020-08-27 07:42 | Outpatient (CLI) | payer MEDICARE, SELFPAY ==
[2020-08-27 08:33] LABS: Hemoglobin A1C 8.3 % (<5.7)
[2020-08-27 08:37] LABS: Anion Gap 8 mmol/L (8-16); Blood Urea Nitrogen 35 mg/dL (7-17); Calcium 10.4 mg/dL (8.4-10.2); Carbon Dioxide 28 mmol/L (22-30); Chloride 104 mmol/L (98-107); Cholesterol 194 mg/dL (0-200); Estimated Glomerular Filt Rate 34; Glucose 190 mg/dL (65-105); HDL Direct 60 mg/dL; Potassium 4.7 mmol/L (3.4-5.0); Sodium 140 mmol/L (137-145); Triglycerides 316 mg/dL (<150); Uric Acid 5.1 mg/dL (2.5-7.5)
[2020-08-27 08:48] LABS: LDL Cholesterol Direct 54 mg/dL
== END 2020-08-27 07:43 | disposition home or self-care (01) ==
PROVIDERS: PCP Internal Medicine; Visit Provider Internal Medicine
DX: E11.22 Type 2 diabetes mellitus with diabetic chronic kidney disease (principal); N18.2 Chronic kidney disease, stage 2 (mild); E78.2 Mixed hyperlipidemia; Z79.899 Other long term (current) drug therapy
CPT/HCPCS: 36415; 80048; 80061; 83036; 84550

== ENCOUNTER 2020-10-27 07:47 | Outpatient (CLI) | payer MEDICARE, SELFPAY ==
[2020-10-27 08:28] LABS: Hematocrit 43.6 % (37.0-47.0); Hemoglobin 13.5 g/dL (12.0-15.0); Mean Corpuscular Hemoglobin 30.3 pg (26-34); Mean Corpuscular Volume 97.8 fl (80-100); Platelet Count Result 219 k/mm3 (150-375); Red Blood Count 4.46 M/mm3 (4.2-5.4); Red Cell Distribution Width 13.6 % (11.5-14.5); White Blood Count 6.7 K/mm3 (4.5-10.0)
[2020-10-27 08:51] LABS: Albumin Level 3.7 g/dL (3.5-5.1); Anion Gap 8 mmol/L (8-16); Blood Urea Nitrogen 36 mg/dL (7-17); Calcium 9.4 mg/dL (8.4-10.2); Carbon Dioxide 27 mmol/L (22-30); Chloride 101 mmol/L (98-107); Estimated Glomerular Filt Rate 31; Glucose 127 mg/dL (65-110); Phosphorus 3.9 mg/dL (2.5-4.5); Potassium 5.1 mmol/L (3.4-5.0); Sodium 136 mmol/L (137-145)
[2020-10-27 08:59] LABS: Parathyroid Intact 58.7 pg/mL (7.5-53.5)
[2020-10-27 09:02] LABS: Atypical Lymphocytes Present; Eosinophils Percent Manual 3 % (0-4); Lymphocytes Absolute Manual 2.27 K/mm3 (1.1-4.5); Monocytes Absolute Manual 0.33 K/mm3 (0.1-0.90); Monocytes Percent Manual 5 % (3-9); Neutrophils Percent Manual 58 % (46-73); Platelet Estimate Adequate (Adequate); Total Cells Counted 100
[2020-10-27 09:24] LABS: Creatinine Urine 136.2 mg/dL
[2020-10-27 11:22] LABS: Total Protein Urine Random > 600 mg/dL
[2020-10-27 11:22] LABS: Vitamin D 25 Hydroxy 40.2 ng/mL
== END 2020-10-27 07:48 | disposition home or self-care (01) ==
PROVIDERS: PCP Internal Medicine; Referring Provider Internal Medicine Nephrology
DX: I48.3 Typical atrial flutter (principal); Z95.0 Presence of cardiac pacemaker; N18.32 Chronic kidney disease, stage 3b; E11.29 Type 2 diabetes mellitus with other diabetic kidney complication; I12.9 Hypertensive chronic kidney disease with stage 1 through stage 4 chronic kidney disease, or unspecified chronic kidney disease; R80.8 Other proteinuria; R53.81 Other malaise
CPT/HCPCS: 36415; 80069; 82306; 82570; 83970; 84156; 85025

== ENCOUNTER 2020-12-31 07:51 | Outpatient (CLI) | payer MEDICARE, SELFPAY ==
[2020-12-31 08:25] LABS: Alanine Aminotransferase 20 U/L (4-35); Albumin Level 4.4 g/dL (3.5-5.1); Alkaline Phosphatase 79 U/L (38-126); Anion Gap 5 mmol/L (8-16); Aspartate Amino Transferase 36 U/L (14-36); Bilirubin,Total 0.4 mg/dL (0.2-1.3); Blood Urea Nitrogen 27 mg/dL (7-17); Calcium 10.2 mg/dL (8.4-10.2); Carbon Dioxide 30 mmol/L (22-30); Chloride 105 mmol/L (98-107); Cholesterol 179 mg/dL (0-200); Estimated Glomerular Filt Rate 36; Glucose 181 mg/dL (65-110); HDL Direct 69 mg/dL; Potassium 4.7 mmol/L (3.4-5.0); Sodium 140 mmol/L (137-145); Triglycerides 214 mg/dL (<150); Uric Acid 4.5 mg/dL (2.5-7.5)
[2020-12-31 08:28] LABS: Hemoglobin A1C 7.4 % (<5.7)
[2020-12-31 08:36] LABS: LDL Cholesterol Direct 62 mg/dL
[2020-12-31 08:52] LABS: Free T4 Free Thyroxine 1.06 ng/mL (0.78-2.19)
[2021-01-03 13:38] LABS: Homocysteine 15.5 umol/L (<10.4)
[2021-01-05 00:12] LABS: Vitamin D 1,25 (OH)2 Total 20 pg/mL (18-72); Vitamin D2 1,25 (OH)2 <8 pg/mL; Vitamin D3 1,25 (OH)2 20 pg/mL
== END 2020-12-31 07:52 | disposition home or self-care (01) ==
PROVIDERS: PCP Internal Medicine; Visit Provider Internal Medicine
DX: E11.9 Type 2 diabetes mellitus without complications (principal); Z51.81 Encounter for therapeutic drug level monitoring; Z79.899 Other long term (current) drug therapy; E78.2 Mixed hyperlipidemia; E55.9 Vitamin D deficiency, unspecified; R79.89 Other specified abnormal findings of blood chemistry; I10 Essential (primary) hypertension
CPT/HCPCS: 36415; 80053; 80061; 82652; 83036; 83090; 84439; 84443; 84550

== ENCOUNTER 2021-04-14 08:48 | Outpatient (CLI) | payer MEDICARE, SELFPAY ==
[2021-04-14 09:18] LABS: Creatinine Urine 72.5 mg/dL; Total Protein Urine Random 192 mg/dL; Ur Ttl Prot Creatinine Ratio 2.65 mg/mg (0-0.20)
[2021-04-14 09:35] LABS: Albumin Level 4.3 g/dL (3.5-5.1); Anion Gap 9 mmol/L (8-16); Blood Urea Nitrogen 41 mg/dL (7-17); Calcium 10.3 mg/dL (8.4-10.2); Carbon Dioxide 28 mmol/L (22-30); Chloride 99 mmol/L (98-107); Estimated Glomerular Filt Rate 27; Glucose 278 mg/dL (65-110); Phosphorus 4.9 mg/dL (2.5-4.5); Potassium 5.3 mmol/L (3.4-5.0); Sodium 136 mmol/L (137-145)
== END 2021-04-14 08:49 | disposition home or self-care (01) ==
PROVIDERS: PCP Internal Medicine; Visit Provider Internal Medicine Nephrology
DX: I12.9 Hypertensive chronic kidney disease with stage 1 through stage 4 chronic kidney disease, or unspecified chronic kidney disease (principal); N18.32 Chronic kidney disease, stage 3b; E11.29 Type 2 diabetes mellitus with other diabetic kidney complication; R80.8 Other proteinuria
CPT/HCPCS: 36415; 80069; 82570; 84156

== ENCOUNTER 2021-05-04 12:04 | Outpatient (CLI) | payer MEDICARE, SELFPAY ==
[2021-05-04 13:10] LABS: Basophils Absolute Auto 0.1 K/mm3 (0.0-0.1); Basophils Percent Auto 0.7 % (0.2-1.2); Eosinophils Absolute Auto 0.4 K/mm3 (0-0.3); Eosinophils Percent Auto 2.5 % (0-4.4); Hematocrit 39.2 % (37.0-47.0); Hemoglobin 12.4 g/dL (12.0-15.0); Immature Granulocyte Absolute 0.04 K/mm3 (0.00-0.031); Immature Granulocyte Percent A 0.3 % (0-0.5); Lymphocytes Absolute Auto 4.57 K/mm3 (0.9-3.2); Lymphocytes Percent Auto 32.6 % (18.3-44.2); Mean Corpuscular HGB Conc 31.6 g/dl (32-36); Mean Corpuscular Hemoglobin 31.4 pg (26-34); Mean Corpuscular Volume 99.2 fl (80-100); Mean Platelet Volume 9.7 fl (7.4-10.4); Monocytes Percent Auto 7.2 % (2.6-8.5); Neutrophils Percent Auto 56.7 % (45.5-73.1); Platelet Count Result 237 k/mm3 (150-375); Red Blood Count 3.95 M/mm3 (4.2-5.4); Red Cell Distribution Width 13.9 % (11.5-14.5)
[2021-05-04 13:23] LABS: Anion Gap 8 mmol/L (8-16); Blood Urea Nitrogen 41 mg/dL (7-17); Calcium 10.5 mg/dL (8.4-10.2); Carbon Dioxide 26 mmol/L (22-30); Chloride 101 mmol/L (98-107); Estimated Glomerular Filt Rate 29; Glucose 96 mg/dL (65-110); Potassium 4.4 mmol/L (3.4-5.0); Sodium 135 mmol/L (137-145)
== END 2021-05-04 12:05 | disposition home or self-care (01) ==
PROVIDERS: PCP Internal Medicine; Visit Provider Internal Medicine
DX: R10.33 Periumbilical pain (principal); R10.2 Pelvic and perineal pain; Z87.19 Personal history of other diseases of the digestive system
CPT/HCPCS: 36415; 80048; 85025

== ENCOUNTER 2021-05-04 12:49 | Outpatient (CLI) | payer MEDICARE, SELFPAY ==
--- NOTE | ~2021-05-04 | CT_ITS ---
EXAMINATION: CT abdomen pelvis wo con DATE: 05/04/2021 13:40 INDICATION: Periumbilical and lower abdominal pain since Tuesday. History of diverticulitis. TECHNIQUE: Computed tomography (CT) of the abdomen and pelvis was performed without intravenous contr ast. Automated exposure control and iterative reconstruction technique were employed. Exam dose: 197 .23 mGy-cm total exam DLP. COMPARISON: 10/29/2019 CT abdomen pelvis with IV contrast material FINDINGS: There is minimal atelectasis at the lung bases. Status post sternotomy. Pacemaker lead is noted in the right ventricle. Heart size is within normal range. No pericardial or pleural effusion. Multiple gallstones are noted in the dependent aspect of the gallbladder lumen. No gallbladder wall t hickening or pericholecystic fluid or fat stranding is detected. No bile duct or pancreatic duct dila tation. No hepatic steatosis is detected on this noncontrast examination. No hepatic, splenic, pancreatic, adrenal or renal space-occupying mass lesion is evident on this limi adelina noncontrast examination. No urinary tract calculus or hydroureteronephrosis is evident. The urina ry bladder is unremarkable. Status post hysterectomy. There is prominent atherosclerotic calcification of the abdominal aorta and iliac arteries; no abdomi nal aortic aneurysm. Normal appendix. There is diverticulosis of the splenic flexure and descending and sigmoid colon. There is thickening of the wall of the sigmoid colon with mild pericolic soft tissue stranding, consistent with diverticu litis. No abscess cavity is identified. Diffuse idiopathic skeletal hyperostosis of the thoracic spine. Multilevel degenerative disc disease of the lumbar and lumbosacral spine and prominent degenerative change at the apophyseal joints of the lumbar and lumbosacral area. No suspicious osteolytic or osteoblastic lesions are noted. IMPRESSION: Sigmoid colon diverticulitis Diverticulosis of left colon Normal appendix Cholelithiasis Right ventricular pacemaker leads; status post sternotomy Reviewed, dictated and finalized at [facility]. Reviewed, dictated and finalized at location [facility]. 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
[2021-05-04 13:27] LABS: Estimated Glomerular Filt Rate 34
== END 2021-05-04 12:50 | disposition home or self-care (01) ==
LOC: ANHIMG 12:56
PROVIDERS: PCP Internal Medicine; Visit Provider Internal Medicine
DX: R10.33 Periumbilical pain (principal); R10.2 Pelvic and perineal pain; Z87.19 Personal history of other diseases of the digestive system; K80.20 Calculus of gallbladder without cholecystitis without obstruction; K57.32 Diverticulitis of large intestine without perforation or abscess without bleeding
CPT/HCPCS: 36415; 74176; 80048; 85025

== ENCOUNTER 2021-05-19 07:41 | Outpatient (CLI) | payer MEDICARE, SELFPAY ==
[2021-05-19 08:35] LABS: Alanine Aminotransferase 22 U/L (4-35); Alkaline Phosphatase 91 U/L (38-126); Anion Gap 5 mmol/L (8-16); Aspartate Amino Transferase 44 U/L (14-36); Bilirubin,Total 0.8 mg/dL (0.2-1.3); Blood Urea Nitrogen 33 mg/dL (7-17); Calcium 9.7 mg/dL (8.4-10.2); Carbon Dioxide 28 mmol/L (22-30); Chloride 104 mmol/L (98-107); Cholesterol 175 mg/dL (0-200); Estimated Glomerular Filt Rate 31; Glucose 132 mg/dL (65-110); HDL Direct 59 mg/dL; Potassium 4.5 mmol/L (3.4-5.0); Sodium 137 mmol/L (137-145); Triglycerides 170 mg/dL (<150)
[2021-05-19 08:41] LABS: Hemoglobin A1C 7.4 % (<5.7)
[2021-05-19 08:46] LABS: LDL Cholesterol Direct 64 mg/dL
[2021-05-19 09:21] LABS: Vitamin D 25 Hydroxy 64.7 ng/mL
== END 2021-05-19 07:42 | disposition home or self-care (01) ==
PROVIDERS: PCP Internal Medicine; Visit Provider Internal Medicine
DX: E11.65 Type 2 diabetes mellitus with hyperglycemia (principal); E55.9 Vitamin D deficiency, unspecified; E78.2 Mixed hyperlipidemia; I10 Essential (primary) hypertension; I25.10 Atherosclerotic heart disease of native coronary artery without angina pectoris; Z79.4 Long term (current) use of insulin; Z79.899 Other long term (current) drug therapy
CPT/HCPCS: 36415; 80053; 80061; 82306; 83036

== ENCOUNTER → 2021-06-09 09:52 | Outpatient (CLI) | payer MEDICARE, SELFPAY ==
[2021-06-09 12:03] LABS: Influenza A QL RT-PCR Negative (Negative); Influenza B QL RT-PCR Negative (Negative); SARS-CoV-2 RNA PCR Negative
== END ==
PROVIDERS: PCP Internal Medicine; Visit Provider Internal Medicine
DX: J02.9 Acute pharyngitis, unspecified (principal); R05.9 Cough, unspecified; Z20.822 Contact with and (suspected) exposure to COVID-19
CPT/HCPCS: 87502; C9803; U0003; U0005

== ENCOUNTER 2021-08-07 07:15 | Outpatient (CLI) | payer MEDICARE, SELFPAY ==
[2021-08-07 08:35] LABS: Creatinine Urine 75.4 mg/dL; Total Protein Urine Random 167 mg/dL; Ur Ttl Prot Creatinine Ratio 2.21 mg/mg (0-0.20)
[2021-08-07 08:38] LABS: Albumin Level 3.7 g/dL (3.5-5.1); Anion Gap 6 mmol/L (8-16); Blood Urea Nitrogen 31 mg/dL (7-17); Calcium 9.2 mg/dL (8.4-10.2); Carbon Dioxide 28 mmol/L (22-30); Chloride 103 mmol/L (98-107); Estimated Glomerular Filt Rate 34; Glucose 231 mg/dL (65-110); Phosphorus 4.4 mg/dL (2.5-4.5); Potassium 4.8 mmol/L (3.4-5.0); Sodium 137 mmol/L (137-145)
[2021-08-07 08:50] LABS: Parathyroid Intact 50.1 pg/mL (7.5-53.5)
[2021-08-07 09:06] LABS: Vitamin D 25 Hydroxy 58.3 ng/mL
== END 2021-08-07 07:16 | disposition home or self-care (01) ==
PROVIDERS: PCP Internal Medicine; Visit Provider Internal Medicine Nephrology
DX: I12.9 Hypertensive chronic kidney disease with stage 1 through stage 4 chronic kidney disease, or unspecified chronic kidney disease (principal); N18.4 Chronic kidney disease, stage 4 (severe); R80.8 Other proteinuria; E11.29 Type 2 diabetes mellitus with other diabetic kidney complication
CPT/HCPCS: 36415; 80069; 82306; 82570; 83970; 84156

== ENCOUNTER 2021-10-01 07:46 | Outpatient (CLI) | payer MEDICARE, SELFPAY ==
[2021-10-01 08:05] LABS: Basophils Absolute Auto 0.1 K/mm3 (0.0-0.1); Basophils Percent Auto 0.6 % (0.2-1.2); Eosinophils Absolute Auto 0.1 K/mm3 (0-0.3); Eosinophils Percent Auto 1.5 % (0-4.4); Hematocrit 43.3 % (37.0-47.0); Immature Granulocyte Absolute 0.03 K/mm3 (0.00-0.031); Immature Granulocyte Percent A 0.4 % (0-0.5); Lymphocytes Absolute Auto 3.23 K/mm3 (0.9-3.2); Lymphocytes Percent Auto 40.5 % (18.3-44.2); Mean Corpuscular HGB Conc 32.3 g/dl (32-36); Mean Corpuscular Hemoglobin 31.7 pg (26-34); Mean Corpuscular Volume 98.2 fl (80-100); Mean Platelet Volume 9.8 fl (7.4-10.4); Monocytes Absolute Auto 0.5 K/mm3 (0.1-0.6); Monocytes Percent Auto 5.8 % (2.6-8.5); Neutrophils Absolute Auto 4.1 K/mm3 (1.3-6.7); Neutrophils Percent Auto 51.2 % (45.5-73.1); Platelet Count Result 184 k/mm3 (150-375); Red Blood Count 4.41 M/mm3 (4.2-5.4)
[2021-10-01 08:18] LABS: Alanine Aminotransferase 17 U/L (6-35); Albumin Level 4.7 g/dL (3.5-5.1); Alkaline Phosphatase 88 U/L (38-126); Anion Gap 9 mmol/L (8-16); Aspartate Amino Transferase 36 U/L (14-36); Bilirubin,Total 0.7 mg/dL (0.2-1.3); Blood Urea Nitrogen 44 mg/dL (7-17); Carbon Dioxide 26 mmol/L (22-30); Chloride 105 mmol/L (98-107); Cholesterol 204 mg/dL (0-200); Estimated Glomerular Filt Rate 26; Glucose 150 mg/dL (65-110); HDL Direct 81 mg/dL; Potassium 5.1 mmol/L (3.4-5.0); Sodium 140 mmol/L (137-145); Triglycerides 169 mg/dL (<150)
[2021-10-01 08:19] LABS: Creatinine Urine 109.4 mg/dL
[2021-10-01 08:29] LABS: Hemoglobin A1C 6.8 % (<5.7); LDL Cholesterol Direct 66 mg/dL
[2021-10-01 08:53] LABS: Free T4 Free Thyroxine 1.42 ng/mL (0.78-2.19)
[2021-10-01 10:04] LABS: Microalbumin Urine Random > 1140.0 mg/L (0-16.7)
== END 2021-10-01 07:47 | disposition home or self-care (01) ==
PROVIDERS: PCP Internal Medicine; Visit Provider Internal Medicine
DX: E78.2 Mixed hyperlipidemia (principal); I10 Essential (primary) hypertension; Z13.29 Encounter for screening for other suspected endocrine disorder; Z79.899 Other long term (current) drug therapy; E11.65 Type 2 diabetes mellitus with hyperglycemia; Z79.4 Long term (current) use of insulin
CPT/HCPCS: 36415; 80053; 80061; 82043; 83036; 84439; 84443; 85025

== ENCOUNTER 2021-10-15 14:10 | Outpatient (CLI) | payer MEDICARE, SELFPAY ==
[2021-10-20 10:41] LABS: Albumin 4.2 g/dL (3.8-4.8); Alpha 1 Globulin 0.3 g/dL (0.2-0.3); Alpha 2 Globulin 0.8 g/dL (0.5-0.9); Beta 1 Globulin 0.5 g/dL (0.4-0.6); Gamma Globulin 1.6 g/dL (0.8-1.7)
[2021-10-22 07:39] LABS: Total Protein/Creatinine Ratio 4500 mg/g creat (21-161)
== END 2021-10-15 14:11 | disposition home or self-care (01) ==
PROVIDERS: PCP Internal Medicine; Visit Provider Internal Medicine
DX: R80.9 Proteinuria, unspecified (principal)
CPT/HCPCS: 36415; 82570; 84155; 84156; 84165; 84166

== ENCOUNTER 2021-12-15 07:37 | Outpatient (CLI) | payer MEDICARE, SELFPAY ==
[2021-12-15 08:06] LABS: Albumin Level 4.5 g/dL (3.5-5.1); Anion Gap 11 mmol/L (8-16); Blood Urea Nitrogen 37 mg/dL (7-17); Calcium 9.8 mg/dL (8.4-10.2); Carbon Dioxide 23 mmol/L (22-30); Chloride 103 mmol/L (98-107); Estimated Glomerular Filt Rate 33; Glucose 186 mg/dL (65-110); Phosphorus 4.4 mg/dL (2.5-4.5); Potassium 4.9 mmol/L (3.4-5.0); Sodium 137 mmol/L (137-145)
[2021-12-15 08:33] LABS: Creatinine Urine 90.4 mg/dL
[2021-12-15 09:32] LABS: Total Protein Urine Random 406 mg/dL; Ur Ttl Prot Creatinine Ratio 4.49 mg/mg (0-0.20)
== END 2021-12-15 07:38 | disposition home or self-care (01) ==
PROVIDERS: PCP Internal Medicine; Visit Provider Internal Medicine Nephrology
DX: N18.32 Chronic kidney disease, stage 3b (principal); R80.8 Other proteinuria; E11.29 Type 2 diabetes mellitus with other diabetic kidney complication
CPT/HCPCS: 36415; 80069; 82570; 84156

== ENCOUNTER 2022-06-07 08:43 | Outpatient (CLI) | payer MEDICARE, SELFPAY ==
[2022-06-07 09:05] LABS: Hematocrit 47.4 % (37.0-47.0); Hemoglobin 15.3 g/dL (12.0-15.0); Mean Corpuscular HGB Conc 32.3 g/dl (32-36); Mean Corpuscular Hemoglobin 31.7 pg (26-34); Mean Corpuscular Volume 98.3 fl (80-100); Platelet Count Result 197 k/mm3 (150-375); Red Blood Count 4.82 M/mm3 (4.2-5.4); White Blood Count 8.8 K/mm3 (4.5-10.0)
[2022-06-07 09:15] LABS: Albumin Level 4.6 g/dL (3.5-5.1); Anion Gap 8 mmol/L (8-16); Blood Urea Nitrogen 44 mg/dL (7-17); Calcium 9.9 mg/dL (8.4-10.2); Carbon Dioxide 29 mmol/L (22-30); Chloride 100 mmol/L (98-107); Estimated Glomerular Filt Rate 27; Glucose 187 mg/dL (65-110); Potassium 4.8 mmol/L (3.4-5.0); Sodium 137 mmol/L (137-145)
[2022-06-07 09:17] LABS: Creatinine Urine 106.5 mg/dL
[2022-06-07 09:24] LABS: Total Protein Urine Random > 600 mg/dL
[2022-06-07 09:25] LABS: Parathyroid Intact 60.6 pg/mL (7.5-53.5)
== END 2022-06-07 08:44 | disposition home or self-care (01) ==
PROVIDERS: Internal Medicine Nephrology; PCP Internal Medicine; Visit Provider Internal Medicine Nephrology
DX: N18.32 Chronic kidney disease, stage 3b (principal); N93.9 Abnormal uterine and vaginal bleeding, unspecified
CPT/HCPCS: 36415; 80069; 82570; 83970; 84156; 85027

== ENCOUNTER 2022-06-22 07:33 | Outpatient (CLI) | payer MEDICARE, SELFPAY ==
[2022-06-22 10:01] LABS: Alanine Aminotransferase 20 U/L (6-35); Albumin Level 4.2 g/dL (3.5-5.1); Alkaline Phosphatase 87 U/L (38-126); Anion Gap 5 mmol/L (8-16); Aspartate Amino Transferase 36 U/L (14-36); Bilirubin,Total 0.6 mg/dL (0.2-1.3); Blood Urea Nitrogen 40 mg/dL (7-17); Carbon Dioxide 30 mmol/L (22-30); Chloride 104 mmol/L (98-107); Cholesterol 197 mg/dL (0-200); Estimated Glomerular Filt Rate 23; Glucose 149 mg/dL (65-110); HDL Direct 89 mg/dL; Potassium 4.6 mmol/L (3.4-5.0); Sodium 139 mmol/L (137-145); Triglycerides 169 mg/dL (<150)
[2022-06-22 10:08] LABS: Hemoglobin A1C 8.4 % (<5.7)
[2022-06-22 10:12] LABS: LDL Cholesterol Direct 62 mg/dL
== END 2022-06-22 07:34 | disposition home or self-care (01) ==
PROVIDERS: PCP Internal Medicine; Visit Provider Internal Medicine
DX: E11.9 Type 2 diabetes mellitus without complications (principal); E78.2 Mixed hyperlipidemia; Z79.4 Long term (current) use of insulin; Z79.899 Other long term (current) drug therapy
CPT/HCPCS: 36415; 80053; 80061; 83036

== ENCOUNTER 2022-07-28 10:05 | Outpatient (CLI) | payer MEDICARE, SELFPAY ==
--- NOTE | ~2022-07-28 | US_ITS ---
EXAMINATION: US carotid duplex BI DATE: 07/28/2022 10:51 INDICATION: Carotid stenosis. Encounter for follow-up examination. TECHNIQUE: Grayscale, color Doppler, and pulsed Doppler images of the cervical carotid arteries were obtained. The degree of vessel stenosis is placed in one of the following categories: normal, <50%, 5 0-69%, >=70% but less than near-occlusion, near-occlusion, or total occlusion. Note that percent sten osis relative to normal distal artery lumen diameter is indirectly measured from velocity measurement s as described by Joni, et al. Radiology 2003; 229:340-346. COMPARISON: Ultrasound 11/21/2018, CTA 11/30/2018 FINDINGS: RIGHT: The right common carotid artery (CCA) peak systolic velocity (PSV) is 62 cm/s. The right internal car otid artery (ICA) PSV is 493 cm/s. The right ICA end-diastolic velocity (EDV) is 139 cm/s. The right ICA/CCA PSV ratio is 8.0. Grayscale and color Doppler images yield an estimate of >=50% diameter redu ction from plaque in the ICA. There is antegrade flow in the right vertebral artery. LEFT: The left CCA PSV is 87 cm/s. The left ICA PSV is 164 cm/s. The left ICA EDV is 39 cm/s. The left ICA/ CCA PSV ratio is 1.9. Grayscale and color Doppler images yield an estimate of >=50% diameter reductio n from plaque in the ICA. There is antegrade flow in the left vertebral artery. IMPRESSION: 1. >70% stenosis in the right internal carotid artery, but less than near occlusion. 2. 50-69% stenosis in the left internal carotid artery. Reviewed, dictated and finalized at location [facility]. IMPRESSION: 1. >70% stenosis in the right internal carotid artery, but less than near occlu rosette. 2. 50-69% stenosis in the left internal carotid artery.
== END 2022-07-28 10:06 | disposition home or self-care (01) ==
PROVIDERS: PCP Internal Medicine; Visit Provider Internal Medicine
DX: Z09 Encounter for follow-up examination after completed treatment for conditions other than malignant neoplasm (principal); I77.9 Disorder of arteries and arterioles, unspecified; I65.23 Occlusion and stenosis of bilateral carotid arteries
CPT/HCPCS: 93880

== ENCOUNTER 2022-10-12 07:51 | Outpatient (CLI) | payer MEDICARE, SELFPAY ==
[2022-10-12 08:37] LABS: Albumin Level 4.1 g/dL (3.5-5.1); Anion Gap 7 mmol/L (8-16); Blood Urea Nitrogen 43 mg/dL (7-17); Calcium 9.7 mg/dL (8.4-10.2); Carbon Dioxide 28 mmol/L (22-30); Chloride 103 mmol/L (98-107); Estimated Glomerular Filt Rate 25; Glucose 240 mg/dL (65-110); Phosphorus 4.6 mg/dL (2.5-4.5); Potassium 4.5 mmol/L (3.4-5.0); Sodium 138 mmol/L (137-145)
[2022-10-12 08:40] LABS: Creatinine Urine 153.9 mg/dL
[2022-10-12 09:01] LABS: Total Protein Urine Random > 600 mg/dL
== END 2022-10-12 07:52 | disposition home or self-care (01) ==
PROVIDERS: PCP Internal Medicine; Visit Provider Internal Medicine Nephrology
DX: E11.22 Type 2 diabetes mellitus with diabetic chronic kidney disease (principal); N18.4 Chronic kidney disease, stage 4 (severe); I12.9 Hypertensive chronic kidney disease with stage 1 through stage 4 chronic kidney disease, or unspecified chronic kidney disease; R80.9 Proteinuria, unspecified
CPT/HCPCS: 36415; 80069; 82570; 84156

== ENCOUNTER 2022-11-16 07:04 | Outpatient (CLI) | payer MEDICARE, SELFPAY ==
[2022-11-16 07:28] LABS: Basophils Absolute Auto 0.1 K/mm3 (0.0-0.1); Basophils Percent Auto 0.7 % (0.2-1.2); Eosinophils Absolute Auto 0.1 K/mm3 (0-0.3); Eosinophils Percent Auto 1.8 % (0-4.4); Hematocrit 43.6 % (37.0-47.0); Hemoglobin 13.3 g/dL (12.0-15.0); Immature Granulocyte Absolute 0.01 K/mm3 (0.00-0.031); Immature Granulocyte Percent A 0.1 % (0-0.5); Lymphocytes Absolute Auto 2.92 K/mm3 (0.9-3.2); Lymphocytes Percent Auto 40.4 % (18.3-44.2); Mean Corpuscular HGB Conc 30.5 g/dl (32-36); Mean Corpuscular Hemoglobin 31.2 pg (26-34); Mean Corpuscular Volume 102.3 fl (80-100); Mean Platelet Volume 9.5 fl (7.4-10.4); Monocytes Absolute Auto 0.4 K/mm3 (0.1-0.6); Monocytes Percent Auto 5.7 % (2.6-8.5); Neutrophils Absolute Auto 3.7 K/mm3 (1.3-6.7); Neutrophils Percent Auto 51.3 % (45.5-73.1); Platelet Count Result 165 k/mm3 (150-375); Red Blood Count 4.26 M/mm3 (4.2-5.4); Red Cell Distribution Width 14.1 % (11.5-14.5); White Blood Count 7.2 K/mm3 (4.5-10.0)
[2022-11-16 07:38] LABS: Alanine Aminotransferase 18 U/L (6-35); Albumin Level 4.2 g/dL (3.5-5.1); Alkaline Phosphatase 93 U/L (38-126); Anion Gap 6 mmol/L (8-16); Aspartate Amino Transferase 34 U/L (14-36); Bilirubin,Total 0.6 mg/dL (0.2-1.3); Blood Urea Nitrogen 29 mg/dL (7-17); Calcium 9.8 mg/dL (8.4-10.2); Carbon Dioxide 30 mmol/L (22-30); Chloride 104 mmol/L (98-107); Cholesterol 200 mg/dL (0-200); Estimated Glomerular Filt Rate 36; Glucose 158 mg/dL (65-110); HDL Direct 86 mg/dL; Hemoglobin A1C 7.4 % (<5.7); Potassium 4.5 mmol/L (3.4-5.0); Sodium 140 mmol/L (137-145); Triglycerides 203 mg/dL (<150); Uric Acid 4.2 mg/dL (2.5-7.5)
[2022-11-16 07:44] LABS: Appearance Urine Clear (Clear); Bacteria Urine None Seen /hpf; Bilirubin Urine Negative (Negative); Blood Urine Trace (Negative); Color Urine Yellow (Yellow); Glucose Urine UA Negative (Negative); Hyaline Casts Urine Present /lpf; Ketones Urine Negative (Negative); Leukocyte Esterase Ur 1+ LEU/UL (Negative); Need Manual Microscopic Reviewed; Nitrate Urine Negative (Negative); Protein Urine 3+ mg/dL (Negative); RBC Urine 0-2 /hpf (0-2); Specific Grav Ur 1.015 (1.001-1.035); Squamous Epithelial Cell Urine Occasional /hpf (Few); Urobilinogen Urine 0.2 mg/dL (<2.0); WBC Urine 21-50 /hpf; pH Urine 5.5 (5.0-9.0)
[2022-11-16 07:46] LABS: Add Urine Microscopic? YES
[2022-11-16 07:48] LABS: LDL Cholesterol Direct 73 mg/dL
[2022-11-16 08:02] LABS: Free T4 Free Thyroxine 1.11 ng/mL (0.78-2.19); Vitamin D 25 Hydroxy 29.7 ng/mL
[2022-11-16 08:32] LABS: Creatinine Urine 77.6 mg/dL
[2022-11-16 09:51] LABS: Microalbumin Urine Random > 1140.0 mg/L (0-16.7)
== END 2022-11-16 07:05 | disposition home or self-care (01) ==
PROVIDERS: PCP Internal Medicine; Visit Provider Internal Medicine
DX: I10 Essential (primary) hypertension (principal); E11.22 Type 2 diabetes mellitus with diabetic chronic kidney disease; N18.4 Chronic kidney disease, stage 4 (severe); Z79.899 Other long term (current) drug therapy; Z13.29 Encounter for screening for other suspected endocrine disorder; M10.9 Gout, unspecified; N18.2 Chronic kidney disease, stage 2 (mild); E78.2 Mixed hyperlipidemia; E55.9 Vitamin D deficiency, unspecified
CPT/HCPCS: 36415; 80053; 80061; 81001; 82043; 82306; 83036; 84439; 84443; 84550; 85025; 87086

== ENCOUNTER 2022-11-25 06:51 | Outpatient (CLI) | payer MEDICARE, SELFPAY ==
[2022-11-25 07:18] LABS: Estimated Glomerular Filt Rate 25
== END 2022-11-25 06:52 | disposition home or self-care (01) ==
LOC: ANHIMG 06:53
PROVIDERS: PCP Internal Medicine; Visit Provider Internal Medicine
DX: I73.9 Peripheral vascular disease, unspecified (principal)
CPT/HCPCS: 99199

== ENCOUNTER 2022-12-03 07:20 | Outpatient (CLI) | payer MEDICARE, SELFPAY ==
[2022-12-03 07:59] LABS: Estimated Glomerular Filt Rate 27
== END 2022-12-03 07:21 | disposition home or self-care (01) ==
PROVIDERS: PCP Internal Medicine; Visit Provider Internal Medicine
DX: R09.89 Other specified symptoms and signs involving the circulatory and respiratory systems (principal)
CPT/HCPCS: 99199

== ENCOUNTER 2022-12-20 14:45 | Outpatient (CLI) | payer MEDICARE, SELFPAY ==
--- NOTE | ~2022-12-20 | XR_ITS ---
XR soft tissue neck 12/20/2022 15:01 Indication: Lump anterior neck for one week Procedure: 2 views of the neck soft tissues Comparison: No prior studies for comparison. Findings: No prevertebral soft tissue swelling. Epiglottis and area epiglottic folds are normal. No e vidence for enlargement of the adenoids or lingual tonsils. No significant subglottic narrowing. Ilana re cervical spondylosis with prominent bridging osteophytes at all levels. There is degenerative ante rolisthesis at C7-T1. Impression: 1: No significant abnormality of the neck soft tissues. 2: Severe cervical spondylosis. Reviewed, dictated and finalized at location L. Impression: 1: No significant abnormality of the neck soft tissues. 2: Severe cervical spondylosis.
== END 2022-12-20 14:46 | disposition home or self-care (01) ==
LOC: ANHIMG 14:48
PROVIDERS: PCP Internal Medicine; Visit Provider Internal Medicine
DX: R13.10 Dysphagia, unspecified (principal); R22.1 Localized swelling, mass and lump, neck; M43.02 Spondylolysis, cervical region
CPT/HCPCS: 70360

== ENCOUNTER 2023-01-14 07:59 | Outpatient (CLI) | payer MEDICARE, SELFPAY ==
[2023-01-14 09:00] LABS: Albumin Level 4.1 g/dL (3.5-5.1); Anion Gap 7 mmol/L (8-16); Blood Urea Nitrogen 31 mg/dL (7-17); Calcium 9.7 mg/dL (8.4-10.2); Carbon Dioxide 28 mmol/L (22-30); Chloride 100 mmol/L (98-107); Estimated Glomerular Filt Rate 27; Glucose 180 mg/dL (65-110); Phosphorus 3.6 mg/dL (2.5-4.5); Potassium 4.2 mmol/L (3.4-5.0); Sodium 135 mmol/L (137-145)
[2023-01-14 09:09] LABS: Parathyroid Intact 49.8 pg/mL (7.5-53.5)
[2023-01-14 09:27] LABS: Creatinine Urine 32.6 mg/dL
[2023-01-14 09:34] LABS: Total Protein Urine Random 263 mg/dL; Ur Ttl Prot Creatinine Ratio 8.07 mg/mg (0-0.20)
[2023-01-14 09:43] LABS: Vitamin D 25 Hydroxy 38.3 ng/mL
== END 2023-01-14 08:00 | disposition home or self-care (01) ==
LOC: ANHLAB 08:01
PROVIDERS: PCP Internal Medicine; Visit Provider Internal Medicine Nephrology
DX: E55.9 Vitamin D deficiency, unspecified (principal); E11.22 Type 2 diabetes mellitus with diabetic chronic kidney disease; I12.9 Hypertensive chronic kidney disease with stage 1 through stage 4 chronic kidney disease, or unspecified chronic kidney disease; N18.4 Chronic kidney disease, stage 4 (severe); N25.81 Secondary hyperparathyroidism of renal origin
CPT/HCPCS: 36415; 80069; 82306; 82570; 83970; 84156

== ENCOUNTER 2023-01-25 07:38 | Outpatient (CLI) | payer MEDICARE, SELFPAY ==
[2023-01-25 08:28] LABS: Hemoglobin A1C 6.9 % (<5.7)
[2023-01-25 08:32] LABS: Anion Gap 6 mmol/L (8-16); Blood Urea Nitrogen 36 mg/dL (7-17); Calcium 10.1 mg/dL (8.4-10.2); Carbon Dioxide 29 mmol/L (22-30); Chloride 104 mmol/L (98-107); Cholesterol 208 mg/dL (0-200); Estimated Glomerular Filt Rate 25; Glucose 150 mg/dL (65-110); HDL Direct 92 mg/dL; Potassium 4.7 mmol/L (3.4-5.0); Sodium 139 mmol/L (137-145); Triglycerides 178 mg/dL (<150)
[2023-01-25 08:37] LABS: LDL Cholesterol Direct 66 mg/dL
== END 2023-01-25 07:39 | disposition home or self-care (01) ==
LOC: ANHLAB 07:40
PROVIDERS: PCP Internal Medicine; Visit Provider Internal Medicine
DX: E78.5 Hyperlipidemia, unspecified (principal); N18.30 Chronic kidney disease, stage 3 unspecified; Z51.81 Encounter for therapeutic drug level monitoring; E11.9 Type 2 diabetes mellitus without complications; Z79.4 Long term (current) use of insulin; I10 Essential (primary) hypertension
CPT/HCPCS: 36415; 80048; 80061; 83036

== ENCOUNTER 2023-06-16 06:58 | Outpatient (CLI) | payer MEDICARE, SELFPAY ==
[2023-06-16 08:21] LABS: Appearance Urine Clear (Clear); Bacteria Urine None Seen /hpf; Bilirubin Urine Negative (Negative); Blood Urine 1+ (Negative); Color Urine Yellow (Yellow); Glucose Urine UA 3+ mg/dL (Negative); Ketones Urine Negative (Negative); Leukocyte Esterase Ur Negative LEU/UL (Negative); Need Manual Microscopic Reviewed; Nitrate Urine Negative (Negative); Protein Urine 3+ mg/dL (Negative); RBC Urine 0-2 /hpf (0-2); Squamous Epithelial Cell Urine Occasional /hpf (Few); Urobilinogen Urine 0.2 mg/dL (<2.0); pH Urine 5.5 (5.0-9.0)
[2023-06-16 08:23] LABS: Add Urine Microscopic? YES
[2023-06-16 09:00] LABS: Alanine Aminotransferase 23 U/L (6-35); Albumin Level 4.4 g/dL (3.5-5.1); Alkaline Phosphatase 125 U/L (38-126); Anion Gap 8 mmol/L (8-16); Aspartate Amino Transferase 46 U/L (14-36); Bilirubin,Total 0.8 mg/dL (0.2-1.3); Blood Urea Nitrogen 37 mg/dL (7-17); Calcium 10.4 mg/dL (8.4-10.2); Carbon Dioxide 29 mmol/L (22-30); Chloride 102 mmol/L (98-107); Cholesterol 217 mg/dL (0-200); Estimated Glomerular Filt Rate 27; Glucose 128 mg/dL (65-110); HDL Direct 96 mg/dL; Potassium 4.1 mmol/L (3.4-5.0); Sodium 139 mmol/L (137-145); Triglycerides 160 mg/dL (<150)
[2023-06-16 09:11] LABS: LDL Cholesterol Direct 83 mg/dL
[2023-06-16 09:12] LABS: Vitamin D 25 Hydroxy 51.4 ng/mL
[2023-06-17 09:35] LABS: Hemoglobin A1C 8.4 % (<5.7)
== END 2023-06-16 06:59 | disposition home or self-care (01) ==
LOC: ANHLAB 07:02
PROVIDERS: PCP Internal Medicine; Visit Provider Internal Medicine
DX: E11.22 Type 2 diabetes mellitus with diabetic chronic kidney disease (principal); Z79.899 Other long term (current) drug therapy; E55.9 Vitamin D deficiency, unspecified; E78.5 Hyperlipidemia, unspecified; I12.9 Hypertensive chronic kidney disease with stage 1 through stage 4 chronic kidney disease, or unspecified chronic kidney disease
CPT/HCPCS: 36415; 80053; 80061; 82306; 83036; 87086; 87088

== ENCOUNTER 2023-06-22 06:47 | Outpatient (CLI) | payer MEDICARE, SELFPAY ==
[2023-06-22 08:13] LABS: Albumin Level 4.2 g/dL (3.5-5.1); Anion Gap 7 mmol/L (4-12); Blood Urea Nitrogen 36 mg/dL (7-17); Calcium 10.5 mg/dL (8.4-10.2); Carbon Dioxide 28 mmol/L (22-30); Chloride 104 mmol/L (98-107); Estimated Glomerular Filt Rate 23; Glucose 151 mg/dL (65-110); Phosphorus 3.8 mg/dL (2.5-4.5); Potassium 4.9 mmol/L (3.4-5.0); Sodium 139 mmol/L (137-145)
[2023-06-22 08:45] LABS: Creatinine Urine 52.9 mg/dL
[2023-06-22 09:08] LABS: Total Protein Urine Random > 600 mg/dL
== END 2023-06-22 06:48 | disposition home or self-care (01) ==
LOC: ANHLAB 06:49
PROVIDERS: PCP Internal Medicine; Visit Provider Internal Medicine Nephrology
DX: E11.22 Type 2 diabetes mellitus with diabetic chronic kidney disease (principal); I12.9 Hypertensive chronic kidney disease with stage 1 through stage 4 chronic kidney disease, or unspecified chronic kidney disease; N18.4 Chronic kidney disease, stage 4 (severe)
CPT/HCPCS: 36415; 80069; 82570; 84156

== ENCOUNTER 2023-10-25 07:16 | Outpatient (CLI) | payer MEDICARE, SELFPAY ==
[2023-10-25 08:13] LABS: Albumin Level 4.2 g/dL (3.5-5.1); Anion Gap 8 mmol/L (4-12); Blood Urea Nitrogen 31 mg/dL (7-17); Calcium 9.8 mg/dL (8.4-10.2); Carbon Dioxide 31 mmol/L (22-30); Chloride 101 mmol/L (98-107); Estimated Glomerular Filt Rate 27; Glucose 144 mg/dL (65-110); Phosphorus 3.6 mg/dL (2.5-4.5); Potassium 4.9 mmol/L (3.4-5.0); Sodium 140 mmol/L (137-145)
[2023-10-25 09:42] LABS: Creatinine Urine 80.6 mg/dL
[2023-10-25 09:48] LABS: Total Protein Urine Random 451 mg/dL
[2023-10-25 09:50] LABS: Parathyroid Intact 3.5 pg/mL (7.5-53.5)
[2023-10-25 09:56] LABS: Vitamin D 25 Hydroxy 37.2 ng/mL
== END 2023-10-25 07:17 | disposition home or self-care (01) ==
LOC: ANHLAB 07:19
PROVIDERS: PCP Internal Medicine; Visit Provider Internal Medicine Nephrology
DX: E11.22 Type 2 diabetes mellitus with diabetic chronic kidney disease (principal); I12.9 Hypertensive chronic kidney disease with stage 1 through stage 4 chronic kidney disease, or unspecified chronic kidney disease; N18.4 Chronic kidney disease, stage 4 (severe); N25.81 Secondary hyperparathyroidism of renal origin; E55.9 Vitamin D deficiency, unspecified; R80.9 Proteinuria, unspecified
CPT/HCPCS: 36415; 80069; 82306; 82570; 83970; 84156

== ENCOUNTER 2024-01-16 07:51 | Outpatient (CLI) | payer MEDICARE, SELFPAY ==
[2024-01-16 08:20] LABS: Basophils Absolute Auto 0.1 K/mm3 (0.0-0.1); Basophils Percent Auto 0.7 % (0.2-1.2); Eosinophils Absolute Auto 0.2 K/mm3 (0-0.3); Eosinophils Percent Auto 1.6 % (0-4.4); Hematocrit 46.9 % (37.0-47.0); Hemoglobin 14.6 g/dL (12.0-15.0); Immature Granulocyte Absolute 0.02 K/mm3 (0.00-0.031); Immature Granulocyte Percent A 0.2 % (0-0.5); Lymphocytes Absolute Auto 3.31 K/mm3 (0.9-3.2); Lymphocytes Percent Auto 35.4 % (18.3-44.2); Mean Corpuscular HGB Conc 31.1 g/dl (32-36); Mean Corpuscular Hemoglobin 31.8 pg (26-34); Mean Corpuscular Volume 102.2 fl (80-100); Mean Platelet Volume 9.8 fl (7.4-10.4); Monocytes Absolute Auto 0.6 K/mm3 (0.1-0.6); Monocytes Percent Auto 6.7 % (2.6-8.5); Neutrophils Absolute Auto 5.2 K/mm3 (1.3-6.7); Neutrophils Percent Auto 55.4 % (45.5-73.1); Platelet Count Result 175 k/mm3 (150-375); Red Blood Count 4.59 M/mm3 (4.2-5.4); Red Cell Distribution Width 13.7 % (11.5-14.5); White Blood Count 9.3 K/mm3 (4.5-10.0)
[2024-01-16 08:27] LABS: Add Urine Microscopic? YES; Appearance Urine Clear (Clear); Bacteria Urine None Seen /hpf; Bilirubin Urine Negative (Negative); Blood Urine Negative (Negative); Color Urine Yellow (Yellow); Glucose Urine UA 3+ mg/dL (Negative); Ketones Urine Negative (Negative); Leukocyte Esterase Ur Trace LEU/UL (Negative); Nitrate Urine Negative (Negative); Non Pathogenic Casts 0-2; Protein Urine 3+ mg/dL (Negative); RBC Urine 0-2 /hpf (0-2); Specific Grav Ur 1.016 (1.001-1.035); Squamous Epithelial Cell Urine None Seen /hpf (Few); Urobilinogen Urine 0.2 mg/dL (<2.0); pH Urine 6.5 (5.0-9.0)
[2024-01-16 10:05] LABS: Hemoglobin A1C 6.9 % (<5.7)
[2024-01-16 10:13] LABS: Free T4 Free Thyroxine 1.11 ng/mL (0.78-2.19)
[2024-01-16 10:18] LABS: Creatinine Urine 50.6 mg/dL
[2024-01-16 11:02] LABS: Alanine Aminotransferase 18 U/L (6-35); Albumin Level 4.5 g/dL (3.5-5.1); Alkaline Phosphatase 106 U/L (38-126); Anion Gap 8 mmol/L (4-12); Aspartate Amino Transferase 41 U/L (14-36); Bilirubin,Total 0.8 mg/dL (0.2-1.3); Blood Urea Nitrogen 38 mg/dL (7-17); Calcium 10.6 mg/dL (8.4-10.2); Carbon Dioxide 32 mmol/L (22-30); Chloride 101 mmol/L (98-107); Cholesterol 209 mg/dL (0-200); Estimated Glomerular Filt Rate 25; Glucose 134 mg/dL (65-110); HDL Direct 105 mg/dL; Potassium 5.1 mmol/L (3.4-5.0); Sodium 141 mmol/L (137-145); Triglycerides 210 mg/dL (<150)
[2024-01-16 11:17] LABS: LDL Cholesterol Direct 58 mg/dL
[2024-01-16 11:28] LABS: Thyroid Stimulating Hormone < 0.015 uIU/mL (0.465-4.680)
[2024-01-16 12:32] LABS: Microalbumin Urine Random > 1140.0 mg/L (0-16.7)
[2024-01-16 12:33] LABS: MALB Creatinine Ratio > 2253.0 mg/g (0-30)
== END 2024-01-16 07:52 | disposition home or self-care (01) ==
LOC: ANHLAB 07:52
PROVIDERS: PCP Internal Medicine; Visit Provider Internal Medicine
DX: I12.9 Hypertensive chronic kidney disease with stage 1 through stage 4 chronic kidney disease, or unspecified chronic kidney disease (principal); N18.30 Chronic kidney disease, stage 3 unspecified; E78.5 Hyperlipidemia, unspecified; E11.22 Type 2 diabetes mellitus with diabetic chronic kidney disease; Z13.29 Encounter for screening for other suspected endocrine disorder; Z79.899 Other long term (current) drug therapy
CPT/HCPCS: 36415; 80053; 80061; 81001; 82043; 83036; 84439; 84443; 85025; 87086

== ENCOUNTER 2024-02-03 08:47 | Outpatient (CLI) | payer MEDICARE, SELFPAY ==
--- NOTE | ~2024-02-03 | US_ITS ---
EXAMINATION: US carotid duplex BI DATE: 02/03/2024 09:42 INDICATION: Carotid stenosis TECHNIQUE: Grayscale, color Doppler, and pulsed Doppler images of the cervical carotid arteries were obtained. The degree of vessel stenosis is placed in one of the following categories: normal, <50%, 5 0-69%, >=70% but less than near-occlusion, near-occlusion, or total occlusion. Note that percent sten osis relative to normal distal artery lumen diameter is indirectly measured from velocity measurement s as described by Joni, et al. Radiology 2003; 229:340-346. Notes: Normal: Peak systolic velocity <125 centimeters/sec and no plaque <50%. Peak systolic velocity <125 ( EDV <40; ICA/CCA PSV ratio <2.0; used these factors only a tandem lesions or low cardiac output or co ntralateral disease) 50-69 %: PSV 125-230 (EDV 40-100; ratio 2-4) >= 70% but less than near occlusion: PSV greater than 230 (EDV > 100; ratio> 4.0) Near Occlusion: PSV that is variable; markedly narrowed lumen Occlusion: Absent flow on color/spectral Doppler and no lumen on morgan scale. COMPARISON: None. FINDINGS: RIGHT: The right common carotid artery (CCA) peak systolic velocity (PSV) is 62 cm/s. The right internal car otid artery (ICA) PSV is 147 cm/s. The right ICA end-diastolic velocity (EDV) is 46 cm/s. The right I CA/CCA PSV ratio is 2.4. The external carotid artery (ECA) PSV is 208 cm/s. There is antegrade flow i n the right vertebral artery. LEFT: The left CCA PSV is 101 cm/s. The left ICA PSV is 207 cm/s. The left ICA EDV is 55 cm/s. The left ICA /CCA PSV ratio is 2.1. The ECA PSV is 2:15 cm/s. There is antegrade flow in the left vertebral arter y. IMPRESSION: 1. 50-69% stenosis in the right internal carotid artery by sonographic criteria. 2. 50-69% stenosis in the left internal carotid artery by sonographic criteria. Reviewed, dictated and finalized at location B. ICAL CYTOGENETICIST SCIENTIST IMPRESSION: 1. 50-69% stenosis in the right internal carotid artery by sonographic criteria . 2. 50-69% stenosis in the left internal carotid artery by sonographic criteria.
== END 2024-02-03 08:48 | disposition home or self-care (01) ==
PROVIDERS: PCP Internal Medicine; Visit Provider Internal Medicine
DX: I65.23 Occlusion and stenosis of bilateral carotid arteries (principal); R09.89 Other specified symptoms and signs involving the circulatory and respiratory systems
CPT/HCPCS: 93880

== ENCOUNTER 2024-06-20 07:02 | Outpatient (CLI) | payer MEDICARE, SELFPAY ==
--- OUTSIDE RECORDS SUMMARY | 2024-06-20 07:06 | XMS_ITS | Encounter Summary ---
Author Organization [facility] Address [address] [place] [address] Care Team Providers Care Cover Machine Operator Name Role Phone Eulogio Sullivan MD Primary Care Provider [phone] Rohith Corona MD Unavailable [phone] Jamari Ochoa MD Unavailable [phone] Encounter Details Date Type Department Care Team (Late st Contact Info) Description 04/13/2016 Orders Only [facility] ProviderJessy MD [address] [place] [id number] Social History Tobacco Use Types Packs/Day Years Used Date Smoking Tobacco: Former Cigarettes Q uit: 03/28/2009 Alcohol Use Standard Drinks/Week Comments No 0 (1 standard drink = 0.6 oz pur e alcohol) Comments Unknown Sex and Gender Information Value Date Recorded Sex Assigned at Not on file Legal Sex Female 6:14 AM 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 Historical Provider [facility] MARY GILLIS Final Result documented in this encounter Visit Diagnoses Not on filedocumented in this encounter Care Teams Cover Machine Operator Relationship Specialty Start Date End Date Eulogio Sullivan MD [address] [place] [address] PCP - General 04/20/11 Rohith Corona MD [address] [facility] [address] [place] [address] Referring Physician Obstetrics and Gynecology 02/16/19 Jamari Ochoa MD [address] [facility] [address] [place], [place] [id number] Consulting Physician Cardiology 02/16/19 documented as of this encounter
--- OUTSIDE RECORDS SUMMARY | 2024-06-20 07:06 | XMS_ITS | Referral Summary ---
Author Organization [facility] Address [address] [place] [id number] Care Team Providers Care Machine Presser Name Role Phone Eulogio Sullivan MD Primary Care Provider [phone] Rohith Corona MD Unavailable [phone] Jamari Ochoa MD Unavailable [phone] Encounters Date Type Department Care Team Description 06/14/2024 1:45 PM CDT Ancillary Procedure [facility] Cardiology [address] [place] [id number] Cardiac pacemaker in situ; Complete heart block (HCC); SSS (sick sinus syndrome) (HCC); Atrial fibrillation and flutter (HCC) from Last 3 Months Allergies Active Allergy Reactions Criticality Noted Date Comments Rokc Inhibitors Unknown 06/29/2010 Losartan Hives Medium Medications rosuvastatin (CRESTOR) 10 mg tablet take 1 tablet (10MG) by oral route every day 0 01/17/20 12 Active allopurinol (ZYLOPRIM) 300 mg tabletIndicatio ns:prevention of acute gout attack Take 1 tablet (300 mg total) by mouth top printing press operator before breakfast 07/13/19 18 Active blood glucose diagnostic strip 1 each by Not Applicable route as directed 08/25/19 19 Active pen needle, diabetic 32 gauge x needle 1 Stick by Not Applicable route as directed 09/25/20 19 Active multivitamin capsuleIndicati ons:Vitamin Deficiency Prevention Take 1 capsule by mouth top printing press operator before breakfast Active omega 8-vuj-irj-fish oil 1,000 mg (120 mg-180 mg) capsuleIndicati ons:supplement Take 1 capsule (1,000 mg total) by mouth 2 (two) times a day Active aliskiren (TEKTURNA) 150 mg tablet Take 0.5 tablets (75 mg total) by mouth daily 11/21/19 21 Active TOUJEO 300 unit/mL (1.5 mL) pen for injection INJECT 32 UNITS SUBCUTANEOUSLY ONCE DAILY 10/18/19 21 Active rivaroxaban (XARELTO) 15 mg tablet Take 1 tablet (15 mg total) by mouth daily Active hydrALAZINE (APRESOLINE) 25 mg tablet Take 1 tablet (25 mg total) by mouth 3 (three) times a day 12/25/19 23 Active dapagliflozin propanediol (FARXIGA) 5 mg tablet 1 tablet (5 mg total) Active cholecalciferol (VITAMIN D-3) 50,000 unit capsule Take 1 capsule (50,000 Units total) by mouth 01/22/20 21 Active Active Problems Problem Noted Date Diagnosed Date Permanent atrial fibrillation 12/30/2023 Typical atrial flutter 08/07/2020 Assessment & Plan (10/19/2020 11:13 AM CDT): Symptomatic atrial flutter, despite the presence of heart block and 100% RV pacing. Loss of AV synchrony may account for her symptoms. With the device inhibited / slowed, flutter wave morphology appears to suggest a CTI dependent right atrial circuit. I recommended that she consider EP study and catheter ablation. We discussed the specific risks of right atrial flutter ablation, including hematoma, vascular injury, myocardial perforation, stroke/myocardial infarction, and even . I estimated that this should be a low risk procedure. Because of the patient's persistent atrial arrhythmia, I recommended that she undergo transesophageal echocardiography (to exclude the presence of left atrial thrombus) immediately prior to EP study and ablation. My office will make the appropriate arrangements. From: Kiara RL, Gisele JA, Albaro MA, Geneva H, Analy DUSTIN, Serjio BJ, Juma PAGAN 3rd, [place], Teodoro LANDAVERDE, Clint SC, Adrian JH, Becki BD, Jeffrey B, Kevin AM, Byron HendersonK, Elvira CM, Al-Efrain SM. 2015 ACC/AHA/HRS guideline for the management of adult patients with supraventricular tachycardia: a report of the [place] College [employer] Cardiology/[place] Heart Association Task Force on Clinical Practice Guidelines and the Heart Rhythm Society. Circulation. 2016;133;y128-h736. Class I: Catheter ablation of the CTI is useful in patients with atrial flutter that is either symptomatic or refractory to pharmacological rate control. Other abnormal clinical finding 08/21/2019 Other symptoms involving cardiovascular system 0 08/21/2019 Coronary atherosclerosis 08/21/2019 Special screening for malignant neoplasms, colon 08/21/2019 Anticoagulation management encounter 08/21/2019 Assessment & Plan (10/19/2020 11:19 AM CDT): The patient has a [id number] score of 6 (annualized risk of stroke HIGH%). I have therefore recommended that she remain anticoagulated for thromboprophylaxis. Endometrial cancer 02/16/2019 Overview (02/16/2019): Added automatically from request for surgery [id number] Encounter for antineoplastic chemotherapy 2018 Overview (02/16/2019): Added automatically from request for surgery [id number] CAD (coronary artery disease) 09/23/2016 S/P CABG (coronary artery bypass graft) 09/24/19 17 Complete heart block 09/23/2016 Presence of cardiac pacemaker 09/23/2016 Overview (08/29/2020): Medtronic Dual Pacemaker Dx; SSS, CHB. Gen change 06/01/2019-Fleissner, chronic leads 06/1999. Alternate carelink remote and office checks Q6 mo. 06/01/2019-carelink relay monitor ordered. JR Atrial lead impedance 300-500 ohms, bipolar 9065-2513 ohms-normal function. Assessment & Plan (10/19/2020 11:21 AM CDT): Status post pacemaker placement for complete heart block, leads from 1999. Most recent generator 2019. Today, we are seeing in impedance alert with the RA lead in the bipolar configuration. It appears to be functioning appropriately in the unipolar configuration. The patient was found to have an elevated RV threshold immediately post cardioversion. Today, it is adequate. The patient's device appears to be functioning appropriately. We will again recheck it when she is back in sinus rhythm post ablation. She may need device revision in the future, though the situation is stable at present. If the patient is found to have normal function at the time that device revision is necessary, perhaps she may benefit from placement of a MICRA AV / VDD leadless pacemaker. Benign essential hypertension 06/29/2010 History of colonic polyps 06/29/2010 Mixed hyperlipidemia 06/29/2010 Occlusion and stenosis of basilar artery 011 Type 2 or unspecified type diabetes mellitus 06/2010 Cardiac pacemaker in situ 06/29/2010 Resolved Problems Problem Noted Date Diagnosed Date Resolved Date Paroxysmal atrial fibrillation 01/31/2018 12/30/2023 Immunizations Immunization Administration Dates Next Due Influenza, Quadrivalent, Hig h Dose, Preservative Free, Intrr 12/24/2019 Influenza, Trivalent, High D ose, Split, Preservative Free, Intramuscular 12/14/2018,12/13/2017,11/30/2016,12/25 Influenza, Trivalent, IM (MDV) 12/25/2012 Influenza, Unspecified 12/15/2013,01/05/2012 Moderna SARS-CoV-2 Monovalen t Vaccination (12+ YRS) 06/16/2020,05/08/2020 Pneumococcal Conjugate PCV 13 10/09/2018 ZOSTER LIVE 01/30/2013 Social History Tobacco Use Types Packs/Day Years Used Date Smoking Tobacco: Former Cigarettes 0.8 46 1 964 - 2010 Smokeless Tobacco: Never Tobacco Cessation:Counseling Given: Not Answered Alcohol Use Standard Drinks/Week Comments No 0 (1 standard drink = 0.6 oz pur e alcohol) Comments No Sex and Gender Information Value Date Recorded Sex Assigned at Not on file Legal Sex Female 6:14 AM 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 Gender Identity Not on file Sexual Orientation Not on file Last Filed Vital Signs Vital Sign Reading Time Taken Comments Blood Pressure 130/62 12/30/2023 8:47 AM CDT Pulse 87 12/30/2023 8:47 AM CDT Temperature 35.4 C (95.7 F) 11/04/2020 10:36 AM CDT Respiratory Rate 16 07/20/2023 8:52 AM CDT Oxygen Saturation 99% 12/30/2023 8:47 AM CDT Inhaled Oxygen Concentration - - Weight 55.5 kg (122 lb 4.8 oz) 12/30/2023 8:47 A M CDT Height 162.6 cm (5' 4 ) 12/30/2023 8:47 AM CDT Body Mass Index 20.99 12/30/2023 8:47 AM CDT Plan of Treatment Not on file Medical Devices Implanted Type Area Metal Miner Device Identifier Shelf Expiration Date Model / Serial / Lot [employer] [id number] System 6-12fr Mvp Venous Closure Vascade - [id number] - [id number] Implanted:Qty: 1 on 11/04/2020 by Nicolás Diego MD at [facility] Collagen [employer] 09/01/2022 [id number] / [id number] / [id number] [employer] [id number] Vascade 6/7fr Bioabsorbable Vascular System Compression Collagen - [id number] - [id number] Implanted:Qty: 1 on 11/04/2020 by Nicolás Diego MD at [facility] Collagen [employer] 06/30/2022 [id number] 05U / [id number] [id number] / [id number] [employer] [id number] Vascade 6/7fr Bioabsorbable Vascular System Compression Collagen - [id number] - [id number] Implanted:Qty: 1 on 11/04/2020 by Nicolás Diego MD at [facility] Collagen [employer] 06/30/2022 [id number] 05U / [id number] [id number] / [id number] Pacemaker- 3 Implanted: 013 by Jamari Ochoa MD (Quantity not on file) Pacemaker Chest Medtronic SSS, CHB ADAPTA / [id number] / CHRONIC LEADS 06/1999 Procedures Procedure Name Priority Date/Time Associated Diagnosis Comments DEVICE CHECK - REMOTE Routine 06/14/2024 3:41 PM CDT Cardiac pacemaker in situ Complete heart block (HCC) SSS (sick sinus syndrome) (HCC) Atrial fibrillation and flutter (HCC) BASIC METABOLIC PANEL Routine 10/27/2020 Typical atrial flutter (HCC) Presence of cardiac pacemaker LIPID PANEL Routine 03/29/2019 11:26 PM ANTIQUE 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 POCT HEMOGLOBIN A1C Routine 03/08/2019 9 :22 AM ANTIQUE 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 from Last 3 Months or Most Recently Relevant to Health Maintenance Results * DEVICE CHECK - REMOTE (06/14/2024 3:41 PM CDT) Anatomical Region Laterality Modality Other Narrative 06/19/2024 11:12 AM CDT Medtronic Dual Pacemaker Dx; SSS, CHB. Gen change 06/01/2019-Don, chronic leads 06/1999. Alternate carelink remote and office checks Q6 mo. 06/01/2019-carelink relay monitor ordered. JR Atrial lead impedance 300-500 ohms, bipolar 9548-9640 ohms-normal function. Routine DDDR Pacemaker Remote. Transmission attached. Battery status: 2.92 V, 1.9 years remaining battery life to MARLENE. Stable lead impedances, pacing and sensing thresholds. Presenting rhythm: AP/MICROSOFT DYNAMICS CONSULTANT AP-8.6%, MICROSOFT DYNAMICS CONSULTANT-99.8% 4082 AT/AF episodes noted, longest episode was 8 hours and 5 minutes in duration, IEGM demonstrates AFib and oversensing of R-wave on atrial channel. AF [place] 97.1%. No Ventricular high rate episodes detected. Medications: Xarelto 15 mg, hydralazine 25 mg See scanned report. Office pacemaker follow up: 07/02/24 [facility] remote f/u 09/19/24. Mac Hyatt, ИВАН us Jamari Ochoa MD [facility] PROC EDURES Final Result * (ABNORMAL) Basic metabolic panel (10/27/2020) SCRIBED Sodium 136(A) 137 - 145 mmol/L EXTERNAL LAB SCRIBED Potassium 5.1(A) 3.4 - 5.0 mmol/L EXTERNAL LAB SCRIBED Chloride 101 98 - 107 mmol/L EXTERNAL LAB SCRIBED Carbon Dioxide 27 22 - 30 mmol/L EXTERNAL LAB SCRIBED Anion Gap 8 8 - 16 mmol/L EXTERNAL LAB SCRIBED Urea Nitrogen (BUN) 36(A) 7 - 17 mg/dl EXTERNAL LAB SCRIBED Creatinine 1.30(A) 0.7 - 1.0 mg/dl EXTERNAL LAB SCRIBED Glucose 127(A) 65 - 110 mg/dl EXTERNAL LAB SCRIBED Calcium 9.1 8.4 - 10.2 mg/dl EXTERNAL LAB SCRIBED eGFR in NonAfrican [place] 31(A) 60 - L EXTERNAL LAB Blood specimen (specimen) 10/27/2020 Nicolás Diego MD LAB BLOOD ORDERABLES Fi nal Result EXTERNAL LAB * Lipid panel (03/29/2019 11:26 PM ANTIQUE 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) Cholesterol 142 30 - 199 mg/dL [facility] Comment: Interpretive Data Ages < or = 19 years Acceptable: <170 mg/dL Borderline high: 170-199 mg/dL High: >or= 200 mg/dL Ages > or = 20 years Desirable: <200 mg/dL Borderline high: 200-239 mg/dL High: >or= 240 mg/dL Literature References: 1. Expert Panel on Integrated Guidelines for Cardiovascular Health and Risk Reduction in Children and Adolescents. Pediatrics 2011;128:S213 2. NCEP Expert Panel. Circulation 2004;110:227 Current Interpretive Data was last revised on 2017. Triglycerides 142 <=149 mg/dL [facility] Comment: Interpretive Data Ages < or = 9 years Acceptable: <75 mg/dL Borderline high: 75-99 mg/dL High: >or= 100 mg/dL Ages 10 to 20 years Acceptable: <90 mg/dL Borderline high: 90-129 mg/dL High: >or= 130 mg/dL Ages > or = 20 years Desirable: <150 mg/dL Borderline high: 150-199 mg/dL High: 200-499 mg/dL Very high: >or= 499 mg/dL Literature References: 1. Expert Panel on Integrated Guidelines for Cardiovascular Health and Risk Reduction in Children and Adolescents. Pediatrics 2011;128:S213 2. NCEP Expert Panel. Circulation 2004;110:227 Current Interpretive Data was last revised on 2017. HDL 61 >=40 mg/dL [facility] Comment: Interpretive Data Ages < or = 19 years Acceptable: >45 mg/dL Borderline low: 40-45 mg/dL Low: <40 mg/dL Ages > or = 20 years Desirable: >or= 60 mg/dL Low: <40 mg/dL Literature References: 1. Expert Panel on Integrated Guidelines for Cardiovascular Health and Risk Reduction in Children and Adolescents. Pediatrics 2011;128:S213 2. NCEP Expert Panel. Circulation 2004;110:227 Current Interpretive Data was last revised on 2017. LDL, calculated 53 <=129 mg/dL [facility] Comment: Interpretive Data Ages < or = 19 years Acceptable: <110 mg/dL Borderline high: 110-129 mg/dL High: >or= 130 mg/dL Ages > or = 20 years Optimal: <100 mg/dL Near optimal: 100-129 mg/dL Borderline high: 130-159 mg/dL High: >160 mg/dL Literature References: 1. Expert Panel on Integrated Guidelines for Cardiovascular Health and Risk Reduction in Children and Adolescents. Pediatrics 2011;128:S213 2. NCEP Expert Panel. Circulation 2003;110:227 Current Interpretive Data was last revised on 2017. Non-HDL Cholesterol 81 mg/dL [facility] Comment: Interpretive Data Ages < or = 19 years Acceptable: <120 mg/dL Borderline high: 120-144 mg/dL High: >145 mg/dL Ages > or = 20 years When triglycerides are >200 mg/dL, Non-HDL cholesterol is a secondary target of therapy with treatment goals that are 30 mg/dL greater than the LDL cholesterol target. Literature References: 1. Expert Panel on Integrated Guidelines for Cardiovascular Health and Risk Reduction in Children and Adolescents. Pediatrics 2011;128:S213 2. NCEP Expert Panel. Circulation 2003;110:227 Current Interpretive Data was last revised on 2017. Chol/HDL ratio 2 [facility] Blood specimen (specimen) 03/29/2019 11:26 PM ANTIQUE 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 03/30/2019 12:01 AM ANTIQUE 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 Amilcar Mayer MD LAB BLOOD ORDERABLES Final Res ult Performing Organization Address [facility] de Phone Number [facility] [place] [address] * (ABNORMAL) POCT hemoglobin A1c (03/08/2019 9:22 AM ANTIQUE 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) Hgb A1C, POC 7.3(H) 4.0 - 6.0 % [facility] Est Average Gluc POC 163 mg/dL [facility] Comment: The ADA recommends reporting an estimated Average Glucose (eAG) with all Hemoglobin A1c results using the equation derived from a study of 507 normal and diabetic adults. Minority populations were underrepresented and children were not included. (Diabetes Care 31:6377-1144, 2008). The eAG is not equivalent to a fasting glucose. Blood specimen (specimen) 03/08/2019 9:22 AM ANTIQUE 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 03/08/2019 9:22 AM ANTIQUE 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 Result [facility] Amilcar Mayer MD POINT OF CARE TEST ORDERABLES Final Result Performing Organization Address [facility] de Phone Number [facility] [place] [address] from Last 3 Months or Most Recently Relevant to Health Maintenance Insurance [employer] MEDICARE [facility] Exit41 MEDICARE MEDICARE [employer] Advance Directives For more information, please contact: [phone] * Full Code (Latest Code Status on File) Date Activated Date Inactivated Comments 03/29/2019 12:15 PM 03/30/2019 3:43 PM * Full Code Date Activated Date Inactivated Comments 03/06/2019 9:42 AM 03/06/2019 4:19 PM Care Teams Machine Presser Relationship Specialty Start Date End Date Eulogio Sullivan MD [address] [place] [address] PCP - General 04/20/11 Rohith Corona MD [address] [place] [address] Referring Physician Obstetrics and Gynecology 02/16/19 Jamari Ochoa MD [address] [place] [address] Consulting Physician Cardiology 02/16/19
--- OUTSIDE RECORDS SUMMARY | 2024-06-20 07:06 | XMS_ITS | Clinical Summary ---
Author Organization [facility] Address [address] [place] [address] Care Team Providers Care Autism Motor Specialist Name Role Phone Eulogio Sullivan MD Primary Care Provider [phone] Source Comments [facility],non-owned Affiliates and Associated Physician Practices is amultiple site organization consisting of ambulatory clinics and hospital sitesin [place], [place], [place] and [place]. This disclosure is being madepursuant to the Care Everywhere program and may not contain all information available regarding this patient. Last updated 17.[facility] Allergies Active Allergy Reactions Criticality Noted Date Comments Losartan Urticaria Medium 02/14/2019 Medications * Be aware that medications may not be up to date on this document. Alwaysverify current medications with the patient. Medication Sig Dispensed Refills Start Date End Date Status rivaroxaban (XARELTO) 20 MG tablet Take 20 mg by mouth once daily 03/11/2016 Active glimepiride (AMARYL) 2 MG tablet Take 2 mg by mouth once daily 10/29/2018 Active SITagliptin (JANUVIA) 50 MG tablet Take 50 mg by mouth once daily Active rosuvastatin (CRESTOR) 10 MG tablet Take 10 mg by mouth once daily 01/17/2012 Active hydrALAZINE (APRESOLINE) 25 MG tablet Take 25 mg by mouth once daily 11/05/2018 Active sotalol (BETAPACE) 80 MG tablet Take 80 mg by mouth every 12 hours 01/09/2019 Active allopurinol (ZYLOPRIM) 300 MG tablet Take 1 tablet by mouth once daily 07/12/2017 Active RELION PEN NEEDLES 32G X 4 MM MISC Use 1 stick as directed 3 12/20/2018 Active CONTOUR TEST test strip Use 1 strip as directed 5 08/24/2018 Active Family History Medical History Relation Name Comments Cancer - Breast Maternal Aunt Cancer - Colon Maternal Aunt Relation Name Status Comments Maternal Aunt Social History Tobacco Use Types Packs/Day Years Used Date Smoking Tobacco: Former Cigarettes Smokeless Tobacco: Never Tobacco Cessation:Counseling Given: No Comments:quit in 2009 Alcohol Use Standard Drinks/Week Comments Never 0 (1 standard drink = 0.6 oz pur e alcohol) AUDIT-C Answer Date Recorded Frequency of Alcohol Consumption Never 02/14/2019 Average Number of Drinks Not on file 019 Frequency of Binge Drinking Not on file 01/27 Sex and Gender Information Value Date Recorded Sex Assigned at Not on file Gender Identity Not on file Sexual Orientation Not on file Last Filed Vital Signs Vital Sign Reading Time Taken Comments Blood Pressure 196/80 02/14/2019 2:09 PM JAVA SECURITY ARCHITECT Pulse 77 02/14/2019 2:09 PM JAVA SECURITY ARCHITECT Temperature - - Respiratory Rate - - Oxygen Saturation - - Inhaled Oxygen Concentration - - Weight 63.5 kg (140 lb) 02/14/2019 2:09 PM JAVA SECURITY ARCHITECT Height 162.6 cm (5' 4 ) 02/14/2019 2:09 PM JAVA SECURITY ARCHITECT Body Mass Index 24.03 02/14/2019 2:09 PM JAVA SECURITY ARCHITECT Plan of Treatment Health Maintenance Due Date Last Done Comments BONE DENSITY TESTING 1942 MEDICARE AWV 12 MONTHS 1942 DTAP/TDAP/TD VACCINES (1 - Tdap) 1961 PNEUMOCOCCAL VACCINE 50+ (1 of 1 - PCV) 1992 ZOSTER VACCINE (1 of 2) 1992 Respiratory Syncytial Virus (RSV) Vaccine Pt: or over 60 yrs (1 - 1-dose 75+ series) 2017 COVID-19 VACCINE ( - 2023-2 5 season) 2023 INFLUENZA VACCINE (#1) 2023 DEPRESSION SCREENING 03/28/2024 HEPATITIS B VACCINE Aged Out No longe r eligible based on patient's age to complete this topic HIB VACCINE Aged Out No longer eligi ble based on patient's age to complete this topic HPV VACCINE Aged Out No longer eligi ble based on patient's age to complete this topic MENINGOCOCCAL (Group B) VACC INE SHARED DECISION-MAKING Aged Out No longer eligibl e based on patient's age to complete this topic MENINGOCOCCAL GROUPS A/C/Y/W VACCINE Aged Out No longer eligible b ased on patient's age to complete this topic Care Teams Autism Motor Specialist Relationship Specialty Start Date End Date Eulogio Sullivan MD [address] [facility] [address] [place] [id number] PCP - General 02/12/19
--- OUTSIDE RECORDS SUMMARY | 2024-06-20 07:06 | XMS_ITS | Continuity of Care Document ---
Author Organization [facility] Address [address] [address] [address] [place] [address] Phone Care Team Providers Care Stevedore Dock Name Role Phone Jennifer Virgen Unavailable Unavailable Procedures Procedure Date Eye Exam & Treatment Dilated Retinal Exam W Interpretation De Refraction Advance Directives Directive Yes / No Effective Date File Name No Information Encounters Encounter Description Practice Location Reason(s) For Visit Diagnoses Date Provider Providers Copied on Encounter [facility], [address], [place], [place], [id number], [place] tel:[phone] [facility] No Information [address]. [address] , [address], [place], [address], [place]. tel:[phone] Family History Family Member Type Diagnosis Age At Onset No Information Payers Payer name Insurance type Covered libertarian ID Authoriza tion(s) [place] [id number] Social History Type Description Quantity Date Captured Comments Sex Female Smoking Status No Information Chief Complaint And Reason For Visit No Information Reason For Referral Reason For Referral No Information History Of Present Illness Encounter Date Complaint History Of Prese nt Illness No Information Functional Status Date Functional Assessmen t No Information Instructions Date Instruction Additional Infor mation No Information Assessments Type Assessment Date No Information Patient Care Teams Name Effective Dates (start - stop) Status Members No Information
--- OUTSIDE RECORDS SUMMARY | 2024-06-20 07:06 | XMS_ITS | Continuity of Care Document ---
Author Organization [facility] Address [address] [place] [address] Phone Care Team Providers Care Securities Settlement Processor Name Role Phone Faheem Johnson DO Unavailable Unavailable Allergies, Adverse Reactions, Alerts Substance Reaction Status Criticality No Known Allergies Active No Inform ation Medications Medication Instructions Dosage Effective Dates (start - stop) Status Comments metoprolol succinate ER 25 mg tablet,extended release 24 hr take 1 tablet by oral route every day 25 MG - Active hydralazine 25 mg tablet take 1 tablet by oral route 2 times every day with food 25 MG - Active Crestor 10 mg tablet take 1 tablet by or al route every day 10 MG - Active Januvia 25 mg tablet take 1 tablet by or al route every day 25 MG - Active Procedures Procedure Date Shoulder Xray, complete Drain/inj Lrg Joint Or Bursa Under Ultra sound Lido/ Marcaine 0.5%, Each cc Kenalog 10 Mg Office/outpatient visit,Timo hendricks melendez Advance Directives Directive Yes / No Effective Date File Name No Information Encounters Encounter Description Practice Location Reason(s) For Visit Diagnoses Date Provider Providers Copied on Encounter Office/outpatient visit,eladio, Alejandro [facility], [address], [place], [place], [id number], tel:[phone] [facility] [place] Upper Extremity Pain (chief complaint) Adhesive capsulitis of left shoulder 0-[address] Michael. [address], [address], [place], [place], [id number] , . tel:[phone] Referring Provider: Faheem Johnson DO A, [address], [place], [address] . tel:[phone] Family History Family Member Type Diagnosis Age At Onset No Information Payers Payer name Insurance type Covered constitution party ID Authoriza tion(s) [place] [id number] [employer] 5 [employer] [id number] Social History Type Description Quantity Date Captured Comments Alcohol Use Details Unknown Caffeine Use Details Unknown Tobacco Use Status No Information Smoking Status No Information Sex Female Chief Complaint And Reason For Visit From encounter dated '01/24/2018 12:30'. Upper Extremity Pain (chief complaint). Description: Left Shoulder Pain Reason For Referral Reason For Referral No Information History Of Present Illness Encounter Date Complaint History Of Prese nt Illness Upper Extremity Pain Left Should er Pain Functional Status Date Functional Assessmen t No Information Instructions Date Instruction Additional Infor mation No Information Assessments Type Assessment Date assessment Adhesive capsulitis of left shou lder Patient Care Teams Name Effective Dates (start - stop) Status Members No Information
--- OUTSIDE RECORDS SUMMARY | 2024-06-20 07:06 | XMS_ITS | Clinical Summary ---
Author Organization [facility] Address [address], [place] [address] Phone Care Team Providers Care Cardiology Technologist Name Role Phone Eulogio Sullivan MD Primary Care Provider [phone] Allergies Active Allergy Reactions Criticality Noted Date Comments Rock Inhibitors Unknown 06/29/2010 Losartan Hives Medium 02/14/2019 Medications Medication Sig Dispensed Refills Start Date End Date Status allopurinol (ZYLOPRIM) 300 MG tablet Take 300 mg by mouth 1 (one) time each day 05/07/2020 Active glimepiride (AMARYL) 2 MG tablet TAKE 1 TABLET BY MOUTH ONCE DAILY IN THE MORNING 05/07/2020 Active hydrALAZINE (APRESOLINE) 25 MG tablet Take 25 mg by mouth 2 (two) times a day 03/19/2020 Active Toujeo SoloStar 300 UNIT/ML solution pen-injector 05/28/2020 Active rosuvastatin (CRESTOR) 10 MG tablet Take 10 mg by mouth 1 (one) time each day 05/07/2020 Active rivaroxaban (XARELTO) 15 MG tablet Take 15 mg by mouth daily 04/01/2019 Active [place]-3 1000 MG capsule Take 1 capsule by mouth 2 times daily Active Multiple Vitamin (multivitamin) capsule Take 1 capsule by mouth daily Active Januvia 50 MG tablet 04/13/2020 Acti ve sotalol (BETAPACE) 80 MG tablet Take 80 mg by mouth 2 (two) times a day 05/07/2020 Active aliskiren (TEKTURNA) 150 MG tablet Take 0.5 tablets (75 mg total) by mouth 1 (one) time each day 30 tablet 3 07/23/2020 Active Cholecalciferol (Vitamin D3) 1.25 MG (86058 UT) capsule 01/21/2021 Active Novofine Pen Needle 32G X 6 MM misc USE 1 ONCE DAILY WITH KANDYO PEN 11/11/2021 Active Active Problems Problem Noted Date Diagnosed Date Typical atrial flutter 08/07/2020 Overview (11/19/2020): Last Assessment & Plan: Symptomatic atrial flutter, despite the presence of [...] Serjio BJ, Juma PAGAN 3rd, [place], Teodoro CoffmanD, Clint SC, Adrian JH, Becki BD, Jeffrey B, Kevin AM, Byron W-K, Elvira CM, Al-Efrain SM. 2015 ACC/AHA/HRS guideline for the management of adult patients with supraventricular tachycardia: a report of the [place] [employer]/[place] Heart Association Task Force on Clinical Practice Guidelines and the Heart Rhythm Society. Circulation. 2016;133;g563-q853. Class I: Catheter ablation of the CTI is useful in patients with atrial flutter that is either symptomatic or refractory to pharmacological rate control. Cancer of endometrium 02/16/2019 Overview (06/09/2020): Added automatically from request for surgery [id number] Paroxysmal atrial fibrillation 01/31/2018 Complete heart block 09/23/2016 Coronary atherosclerosis 09/23/2016 History of coronary artery bypass grafting 09/23 Benign essential hypertension 06/29/2010 Cardiac pacemaker in situ 06/29/2010 Overview (06/09/2020): Medtronic Dual Pacemaker Dx; SSS, CHB. Gen change 06/01/2019-Fleissner, chronic leads 06/1999. Alternate carelink remote and office checks Q6 mo. 06/01/2019-carelink relay monitor ordered. JR Diabetes mellitus 06/29/2010 History of polyp of colon 06/29/2010 Mixed hyperlipidemia 06/29/2010 Occlusion and stenosis of basilar artery 011 Immunizations Name Administration Dates Next Due Influenza Split High Dose Preservative Free IM 12/14/2018,12/13/2017,11/30/2016,2015 Influenza TIV (IM) 12/25/2012 Influenza, Quadrivalent 12/24/2019 Influenza, Unspecified 12/15/2013,01/05/2012 Moderna Sars-cov-2 Vaccination 06/16/2020,2020 Pneumococcal Conjugate 13-Valent 10/09/2018 Zoster 01/30/2013 Family History Medical History Relation Comments Kidney disease Brother Heart disease Father Stroke Father Diabetes Sister Kidney disease Sister Relation Status Comments Brother Father Sister Social History Tobacco Use Types Packs/Day Years Used Date Smoking Tobacco: Former Cigarettes Q uit: 03/28/2009 Smokeless Tobacco: Never Alcohol Use Standard Drinks/Week Comments Never 0 (1 standard drink = 0.6 oz pur e alcohol) AUDIT-C Answer Date Recorded Q1: How often do you have a drink containing alc ohol? Never 06/02/2020 Q2: How many drinks containi ng alcohol do you have on a typical day when you are drinking? Not asked 06/02/2020 Q3: How often do you have six or more drinks on one occasion? Never 06/02/2020 Sex and Gender Information Value Date Recorded Sex Assigned at Not on file Gender Identity Not on file Sexual Orientation Not on file Last Filed Vital Signs Vital Sign Reading Time Taken Comments Blood Pressure 130/70 12/23/2021 11:20 AM CDT Pulse - - Temperature 35.2 C (95.3 F) 12/23/2021 11:20 AM CDT Respiratory Rate 18 12/23/2021 11:20 AM CDT Oxygen Saturation - - Inhaled Oxygen Concentration - - Weight 57.2 kg (126 lb) 12/23/2021 11:20 AM CDT Height 162.6 cm (5' 4 ) 12/23/2021 11:20 AM CDT Body Mass Index 21.63 12/23/2021 11:20 AM CDT Plan of Treatment Health Maintenance Due Date Last Done Comments Pneumococcal PPSV23/PCV13 65 + Years / High and Highest Risk (2 of 4 - PPSV23 or PCV20) 12/04/2018 10/09/2018 Pneumococcal PPSV23/PCV13 65 + Years / Low and Medium Risk (2 of 3 - PPSV23 or PCV20) 10/10/2019 10/09/2018 COVID-19 Vaccine (3 - season) 2023, 05/08/2020 Influenza Vaccine (#1) 2023 4, 12/25/2012, 01/05/2012 Care Teams Cardiology Technologist Relationship Specialty Start Date End Date Eulogio Sullivan MD [address] [place] [address] PCP - General Internal Medicine 05/01/20
--- OUTSIDE RECORDS SUMMARY | 2024-06-20 07:06 | XMS_ITS | Clinical Summary ---
Author Organization [facility] Address [address] [place] [address] Care Team Providers Care Vault Custodian Name Role Phone Eulogio Sullivan MD Primary Care Provider [phone] Rohith Corona MD Unavailable [phone] Jamari Ochoa MD Unavailable [phone] Allergies Active Allergy Reactions Criticality Noted Date Comments Rock Inhibitors Unknown 06/29/2010 Losartan Hives Medium Medications rosuvastatin (CRESTOR) 10 mg tablet take 1 tablet (10MG) by oral route every day 0 01/17/20 12 Active allopurinol (ZYLOPRIM) 300 mg tabletIndicatio ns:prevention of acute gout attack Take 1 tablet (300 mg total) by mouth chain offbearer before breakfast 07/13/19 18 Active blood glucose diagnostic strip 1 each by Not Applicable route as directed 08/25/19 19 Active pen needle, diabetic 32 gauge x needle 1 Stick by Not Applicable route as directed 12/21/19 19 Active multivitamin capsuleIndicati ons:Vitamin Deficiency Prevention Take 1 capsule by mouth chain offbearer before breakfast Active omega 4-mip-eey-fish oil 1,000 mg (120 mg-180 mg) capsuleIndicati [...] make the appropriate arrangements. From: Kiara RL, Giesle JA, Albaro MA, Geneva H, Analy DUSTIN, Serjio BJ, Juma PAGAN 3rd, ME, Teodoro CoffmanD, Clint SC, Adrian JH, Becki BD, Jeffrey B, Kevin AM, Byron HendersonK, Elvira CM, Al-Efrain SM. 2015 ACC/AHA/HRS guideline for the management of adult patients with supraventricular tachycardia: a report of the [place] College of Cardiology/[place] Heart Association Task Force on Clinical Practice Guidelines and the Heart Rhythm Society. Circulation. 2016;133;x724-z793. Class I: Catheter ablation of the CTI is useful in patients with atrial flutter that is either symptomatic or refractory to pharmacological rate control. Other abnormal clinical finding 08/21/2019 Other symptoms involving cardiovascular system 0 08/21/2019 Coronary atherosclerosis 08/21/2019 Special screening for malignant neoplasms, colon 08/21/2019 Anticoagulation management encounter 08/21/2019 Assessment & Plan (10/19/2020 11:19 AM CDT): The patient has a [id number] score of 6 (annualized risk of stroke HIGH%). I have therefore recommended that she remain anticoagulated for thromboprophylaxis. Endometrial cancer 02/16/2019 Overview (02/16/2019): Added automatically from request for surgery [id number] Encounter for antineoplastic chemotherapy 2018 Overview (02/16/2019): Added automatically from request for surgery [id number] CAD (coronary artery disease) 09/23/2016 S/P CABG (coronary artery bypass graft) 09/24/19 17 Complete heart block 09/23/2016 Presence of cardiac pacemaker 09/23/2016 Overview (08/29/2020): Medtronic Dual Pacemaker Dx; SSS, CHB. Gen change 06/01/2019-Fleissner, chronic leads 06/1999. Alternate carelink remote and office checks Q6 mo. 06/01/2019-carelink relay monitor ordered. JR Atrial lead impedance 300-500 ohms, bipolar 9426-4634 ohms-normal function. Assessment & Plan (10/19/2020 11:21 [...] Resolved Date Paroxysmal atrial fibrillation 01/31/2018 12/30/2023 Encounters Date Type Department Care Team Description 06/14/2024 1:45 PM CDT Ancillary Procedure [facility] Cardiology [address] [place] [id number] Cardiac pacemaker in situ; Complete heart block (HCC); SSS (sick sinus syndrome) (HCC); Atrial fibrillation and flutter (HCC) from Last 3 Months Immunizations Immunization Administration Dates Next Due Influenza, Quadrivalent, Hig h Dose, Preservative Free, Intrr 12/24/2019 Influenza, Trivalent, High D ose, Split, Preservative Free, Intramuscular 12/14/2018,12/13/2017,11/30/2016,12/25 Influenza, Trivalent, IM (MDV) 12/25/2012 Influenza, Unspecified 12/15/2013,01/05/2012 Moderna SARS-CoV-2 Monovalen t Vaccination (12+ YRS) 06/16/2020,05/08/2020 Pneumococcal Conjugate PCV 13 10/09/2018 ZOSTER LIVE 01/30/2013 Surgical History Surgery Date Site/Laterality Comments CORONARY ARTERY BYPASS GRAFT 03/28/2011 - 03/27/2012 CATARACT EXTRACTION EXTRACAP SULAR W/ INTRAOCULAR LENS IMPLANTATION Bilateral BUNIONECTOMY HEMORROIDECTOMY 03/28/1978 - 03/27/1979 INSERT / REPLACE / REMOVE PACEMAKER 03/28/1999 - 000 HYSTERECTOMY W/ BILATERAL SALPINGOOPHORECTOMY 03/29/2019 Bilateral Medical History Medical History Date Comments Coronary artery disease Palpitation Hypertension Hypercholesteremia Diabetes mellitus (HCC) Endometrial cancer (HCC) 02/19/2019 SSS (sick sinus syndrome) (HCC) 1999 Medtronic pacemaker s/p generator change 2004, 2012 Family History Medical History Relation Name Comments Renal failure Brother Brother o f renal failure Heart disease Father Stroke Father Childbirth Mother Mother in childbirth Breast cancer Mother's Sister 1 Colon cancer Mother's Sister 2 Diabetes Sister Sister Relation Name Status Comments Brother Father Mother Mother's Sister 1 Mother's Sister 2 Sister Sister from sepsi s Social History Tobacco Use Types Packs/Day Years Used Date Smoking Tobacco: Former Cigarettes 0.8 46 1 964 - 2010 Smokeless Tobacco: Never Tobacco Cessation:Counseling Given: Not Answered Alcohol Use Standard Drinks/Week Comments No 0 (1 standard drink = 0.6 oz pur e alcohol) Comments No Sex and Gender Information Value Date Recorded Sex Assigned at Not on file Legal Sex Female 6:14 AM ADMINISTRATION MANAGER Gender Identity Not on file Sexual Orientation Not on file Obstetrics History Para Term AB IAB SAB Ectopic Multiple Livin g Live Births 5 3 3 2 2 3 3 Date Outcome GA Total Labor Labor/2nd/3rd Weight Sex Type Anes PTL Trini A1 A5 Name Clin Term Term Term SAB SAB Last Filed Vital Signs Vital Sign Reading [...] 12/30/2023 8:47 AM CDT Plan of Treatment Health Maintenance Due Date Last Done Comments Albumin Creatinine Ratio, Urine 1942 Depression Screening 1942 Osteoporosis Screening-Bone Density Scan 1942 Dilated Eye Exam 1942 Foot Exam 1942 DTaP/Tdap/Td Vaccine (1 - Tdap) 1953 Hepatitis B Screening 1960 Well Visit 65+ 09/20/2007 Zoster Vaccine (2 of 3) 03/27/2013 01/30/2013 Pneumococcal vaccine 65+ (2 of 2 - PPSV23) 12/04/2018 10/09/2018 Hemoglobin A1C 09/07/2019 03/08/2019 Lipid Panel 03/29/2020 03/29/2019, 05/0 08/2018, 02/02/2018, Additional history exists eGFR 10/27/2021 10/27/2020 Fall Risk Assessment 11/04/2021 11/04/2020 Covid-19 Vaccine (3 - 2023-2 5 season) 2023 06/16/2020, 05/08/2020 Influenza Vaccine (#1) 2023 , 12/24/2019, 12/14/2018, Additional history exists Medical Devices Implanted Type Area Bead Maker Device Identifier Shelf Expiration Date Model / Serial / Lot [employer] [id number] System 6-12fr Mvp Venous Closure Vascade - [id number] - [id number] Implanted:Qty: 1 on 11/04/2020 by Nicolás Diego MD at [facility] Collagen [employer] 09/01/2022 [id number]- [id number] / [id number] / [id number] [employer] [id number] Vascade 6/7fr Bioabsorbable Vascular System Compression Collagen - [id number] - [id number] Implanted:Qty: 1 on 11/04/2020 by Nicolás Diego MD at [facility] Collagen [employer] 06/30/2022 700-580I- 05U / [id number] / [id number] [employer] [id number] Vascade 6/7fr Bioabsorbable Vascular System Compression Collagen - [id number] - [id number] Implanted:Qty: 1 on 11/04/2020 by Nicolás Diego MD at [facility] Collagen [employer] 06/30/2022 700-580I- 05U / [id number] [id number] / [id number] Pacemaker- 3 Implanted: 013 by Jamari Ochoa MD (Quantity not on file) Pacemaker Chest Medtronic SSS, CHB ADAPTA / [id number] / CHRONIC LEADS 06/1999 Procedures Procedure Name Priority Date/Time Associated Diagnosis Comments DEVICE CHECK - REMOTE Routine 06/14/2024 3:41 PM CDT Cardiac pacemaker in situ Complete heart block (HCC) SSS (sick sinus syndrome) (HCC) Atrial fibrillation and flutter (HCC) BASIC METABOLIC PANEL Routine 10/27/2020 Typical atrial flutter (HCC) Presence of cardiac pacemaker LIPID PANEL Routine 03/29/2019 11:26 PM ADMINISTRATION MANAGER POCT HEMOGLOBIN A1C Routine 03/08/2019 9 :22 AM ADMINISTRATION MANAGER from Last 3 Months or Most Recently Relevant to Health Maintenance Results * DEVICE CHECK - REMOTE (06/14/2024 3:41 PM CDT) Anatomical Region Laterality Modality Other Narrative 06/19/2024 11:12 AM CDT Medtronic Dual Pacemaker Dx; SSS, CHB. Gen change 06/01/2019-cathleen Ochoa leads 06/1999. Alternate carelink remote and office checks Q6 mo. 06/01/2019-carelink relay monitor ordered. JR Atrial lead impedance 300-500 ohms, bipolar 4886-6178 ohms-normal function. Routine DDDR Pacemaker Remote. Transmission attached. Battery status: 2.92 V, 1.9 years remaining battery life to MARLENE. Stable lead impedances, pacing and sensing thresholds. Presenting rhythm: AP/OPEN SOAPER TENDER AP-8.6%, OPEN SOAPER TENDER-99.8% 4082 AT/AF episodes noted, longest episode was 8 hours and 5 minutes in duration, IEGM demonstrates AFib and oversensing of R-wave on atrial channel. AF [place] 97.1%. No Ventricular high rate episodes detected. Medications: Xarelto 15 mg, hydralazine 25 mg See scanned report. Office pacemaker follow up: 07/02/24 [facility] remote f/u 09/19/24. Mac Juventino Olena, RN us Jamari Ochoa MD [facility] [...] mg/dl EXTERNAL LAB SCRIBED eGFR in NonAfrican Ghanaian 31(A) 60 - L EXTERNAL LAB Blood specimen (specimen) 10/27/2020 us Nicolás Diego MD LAB BLOOD ORDERABLES [facility] Result EXTERNAL LAB * Lipid panel (03/29/2019 11:26 PM ADMINISTRATION MANAGER) Cholesterol 142 30 - 199 mg/dL [facility] Comment: Interpretive Data Ages < or = [...] revised on 2017. HDL 61 >=40 mg/dL [facility] Comment: Interpretive Data Ages < or = [...] on 2017. LDL, calculated 53 <=129 mg/dL [facility] Comment: Interpretive Data Ages < or = [...] revised on 2017. Non-HDL Cholesterol 81 mg/dL [facility] Comment: Interpretive Data Ages < or = [...] last revised on 2017. Chol/HDL ratio 2 [facility] Blood specimen (specimen) 03/29/2019 11:26 PM ADMINISTRATION MANAGER 03/30/2019 12:01 AM ADMINISTRATION MANAGER Amilcar Mayer MD LAB BLOOD ORDERABLES Final Res ult Performing Organization Address [facility] de Phone Number [facility] [place] [address] * (ABNORMAL) POCT hemoglobin A1c (03/08/2019 9:22 AM ADMINISTRATION MANAGER) Hgb A1C, POC 7.3(H) 4.0 - 6.0 % [facility] Est Average Gluc POC 163 mg/dL [facility] Comment: The ADA recommends reporting an estimated Average Glucose (eAG) with all Hemoglobin A1c results using the equation derived from a study of 507 normal and diabetic adults. Minority populations were underrepresented and children were not included. (Diabetes Care 31:0133-5024, 2008). The eAG is not equivalent to a fasting glucose. Blood specimen (specimen) 03/08/2019 9:22 AM ADMINISTRATION MANAGER 03/08/2019 9:22 AM ADMINISTRATION MANAGER Amilcar Mayer MD POINT OF CARE TEST ORDERABLES Final Result Performing Organization Address [facility] de Phone Number [facility] Department [place] [address] from Last 3 Months or Most Recently Relevant to Health Maintenance Insurance [employer] [place] [address] [place] [address] MEDICARE MEDICARE [employer] Advance Directives For more information, please contact: [phone] * Full Code (Latest Code Status on File) Date Activated Date Inactivated Comments 03/29/2019 12:15 PM 03/30/2019 3:43 PM * Full Code Date Activated Date Inactivated Comments 03/06/2019 9:42 AM 03/06/2019 4:19 PM Care Teams Vault Custodian Relationship Specialty Start Date End Date Eulogio Sullivan MD [address] [facility] [address] [place] [address] PCP - General 04/20/11 Rohith Corona MD [address] [facility] [address] [place] [address] Referring Physician Obstetrics and Gynecology 02/16/19 Jamari Ochoa MD [address] [address] Consulting Physician Cardiology 02/16/19
[2024-06-20 08:14] LABS: Albumin Level 4.4 g/dL (3.5-5.1); Anion Gap 10 mmol/L (4-12); Blood Urea Nitrogen 36 mg/dL (7-17); Calcium 10.1 mg/dL (8.4-10.2); Carbon Dioxide 29 mmol/L (22-30); Chloride 100 mmol/L (98-107); Estimated Glomerular Filt Rate 24; Glucose 132 mg/dL (65-110); Phosphorus 4.4 mg/dL (2.5-4.5); Potassium 4.7 mmol/L (3.4-5.0); Sodium 139 mmol/L (137-145)
[2024-06-20 08:20] LABS: Creatinine Urine 60.7 mg/dL
[2024-06-20 08:49] LABS: Total Protein Urine Random > 600 mg/dL
== END 2024-06-20 07:03 | disposition home or self-care (01) ==
LOC: ANHLAB 07:03
PROVIDERS: PCP Internal Medicine; Visit Provider Internal Medicine Nephrology
DX: I12.9 Hypertensive chronic kidney disease with stage 1 through stage 4 chronic kidney disease, or unspecified chronic kidney disease (principal); E11.22 Type 2 diabetes mellitus with diabetic chronic kidney disease; N18.4 Chronic kidney disease, stage 4 (severe); R80.9 Proteinuria, unspecified
CPT/HCPCS: 36415; 80069; 82570; 84156

== ENCOUNTER 2024-06-22 07:08 | Outpatient (CLI) | payer MEDICARE, SELFPAY ==
--- OUTSIDE RECORDS SUMMARY | 2024-06-22 07:12 | XMS_ITS | Continuity of Care Document ---
Author Organization [facility] Address [address] [place] [address] [address] [place] [address] Phone Care Team Providers Care Casting Coordinator Name Role Phone Jennifer Virgen Unavailable Unavailable Procedures Procedure Date Eye Exam & Treatment Dilated Retinal Exam W Interpretation De Refraction Advance Directives Directive Yes / No Effective Date File Name No Information Encounters Encounter Description Practice Location Reason(s) For Visit Diagnoses Date Provider Providers Copied on Encounter [facility], [address], [place], [place], [id number], [place] tel:[phone] [facility] No Information [address] [facility] , [address], [place], [address], [place]. tel:[phone] Family History Family Member Type Diagnosis Age At Onset No Information Payers Payer name Insurance type Covered democrat ID Authoriza tion(s) [place] [id number] Social History Type Description Quantity Date Captured [...]
--- OUTSIDE RECORDS SUMMARY | 2024-06-22 07:12 | XMS_ITS | Clinical Summary ---
Author Organization [facility] Address [address] [place] [address] Care Team Providers Care Time Checker Name Role Phone Eulogio Sullivan MD Primary Care Provider [phone] Rohith Corona MD Unavailable [phone] Jamari Ochoa MD Unavailable [phone] Allergies Active Allergy Reactions Criticality Noted Date Comments Rock Inhibitors Unknown 06/29/2010 Losartan Hives Medium Medications rosuvastatin (CRESTOR) 10 mg tablet take 1 tablet (10MG) by oral route every day 0 01/17/20 12 Active allopurinol (ZYLOPRIM) 300 mg tabletIndicatio ns:prevention of acute gout attack Take 1 tablet (300 mg total) by mouth plant health care technician before breakfast 07/13/19 18 Active blood glucose diagnostic strip 1 each by Not Applicable route as directed 08/25/19 19 Active pen needle, diabetic 32 gauge x needle 1 Stick by Not Applicable route as directed 12/21/19 19 Active multivitamin capsuleIndicati ons:Vitamin Deficiency Prevention Take 1 capsule by mouth plant health care technician before breakfast Active omega 5-ida-uou-fish oil 1,000 mg (120 mg-180 mg) capsuleIndicati [...] with supraventricular tachycardia: a report of the [place] College of Cardiology/[place] Heart Association Task Force on Clinical Practice Guidelines and the Heart Rhythm Society. Circulation. 2016;133;o942-e055. Class I: Catheter ablation of the CTI is useful in patients with atrial flutter that is either symptomatic or refractory to pharmacological rate control. Other abnormal clinical finding 08/21/2019 Other symptoms involving cardiovascular system 0 08/21/2019 Coronary atherosclerosis 08/21/2019 Special screening for malignant neoplasms, colon 08/21/2019 Anticoagulation management encounter 08/21/2019 Assessment & Plan (10/19/2020 11:19 AM CDT): The patient has a IVJ7AQ6-DWZm score of 6 (annualized risk of stroke HIGH%). I have therefore recommended that she remain anticoagulated for thromboprophylaxis. Endometrial cancer 02/16/2019 Overview (02/16/2019): Added automatically from request for surgery [id number] Encounter for antineoplastic chemotherapy 2018 Overview (02/16/2019): Added automatically from request for surgery [id number] CAD (coronary artery disease) 09/23/2016 S/P CABG (coronary artery bypass graft) 09/24/19 17 Complete heart block 09/23/2016 Presence of cardiac pacemaker 09/23/2016 Overview (08/29/2020): Medtronic Dual Pacemaker Dx; SSS, CHB. Gen change 06/01/2019-Fleissner, chronic leads 06/1999. Alternate carelink remote and office checks Q6 mo. 06/01/2019-carelink relay monitor ordered. JR Atrial lead impedance 300-500 ohms, bipolar 7766-7599 ohms-normal function. Assessment & Plan (10/19/2020 11:21 [...] Description 06/14/2024 1:45 PM CDT Ancillary Procedure [facility] Cardiology [address] [place] [address] Cardiac pacemaker in situ; Complete heart [...] on file Legal Sex Female 6:14 AM FIELD SERVICE REP Gender Identity Not on file Sexual Orientation [...] history exists Medical Devices Implanted Type Area Physical Sciences Professor Device Identifier Shelf Expiration Date Model / Serial / Lot [employer] [id number] System 6-12fr Mvp Venous Closure Vascade - [id number] - [id number] Implanted:Qty: 1 on 11/04/2020 by Nicolás Diego MD at [facility] Collagen [employer] 09/01/2022 800-612C- 10U / [id number] / [id number] [employer] [id number] Vascade 6/7fr Bioabsorbable Vascular System Compression Collagen - [id number] - [id number] Implanted:Qty: 1 on 11/04/2020 by Nicolás Diego MD at [facility] Collagen [employer] 06/30/2022 700-580I- 05U / [id number] / [id number] [employer] [id number] Vascade 6/7fr Bioabsorbable Vascular System Compression Collagen - [id number] - [id number] Implanted:Qty: 1 on 11/04/2020 by Nicolás Diego MD at [facility] Collagen [employer] 06/30/2022 700-580I- 05U / [id number] / [id number] Pacemaker- 3 Implanted: 013 by Jamari Ochoa MD (Quantity not on file) Pacemaker Chest Medtronic SSS, CHB ADAPTA / [id number] / CHRONIC LEADS 06/1999 Procedures Procedure Name Priority Date/Time Associated Diagnosis Comments DEVICE CHECK - REMOTE Routine 06/14/2024 3:41 PM CDT Cardiac pacemaker in situ Complete heart block (HCC) SSS (sick sinus syndrome) (HCC) Atrial fibrillation and flutter (HCC) BASIC METABOLIC PANEL Routine 10/27/2020 Typical atrial flutter (HCC) Presence of cardiac pacemaker LIPID PANEL Routine 03/29/2019 11:26 PM FIELD SERVICE REP POCT HEMOGLOBIN A1C Routine 03/08/2019 9 :22 AM FIELD SERVICE REP from Last 3 Months or Most Recently Relevant to Health Maintenance Results * DEVICE CHECK - REMOTE (06/14/2024 3:41 PM CDT) Anatomical Region Laterality Modality Other Narrative 06/19/2024 11:12 AM CDT Medtronic Dual Pacemaker Dx; SSS, CHB. Gen change 06/01/2019-cathleen Ochoa leads 06/1999. Alternate carelink remote and office checks Q6 mo. 06/01/2019-carelink relay monitor ordered. JR Atrial lead impedance 300-500 ohms, bipolar 9657-6318 ohms-normal function. Routine DDDR Pacemaker Remote. Transmission attached. Battery status: 2.92 V, 1.9 years remaining battery life to MARLENE. Stable lead impedances, pacing and sensing thresholds. Presenting rhythm: AP/SUGARCANE PLANTER AP-8.6%, SUGARCANE PLANTER-99.8% 4082 AT/AF episodes noted, longest episode was 8 hours and 5 minutes in duration, IEGM demonstrates AFib and oversensing of R-wave on atrial channel. AF [place] 97.1%. No Ventricular high rate episodes detected. [...] mg/dl EXTERNAL LAB SCRIBED eGFR in NonAfrican Senegalese 31(A) 60 - L EXTERNAL LAB Blood specimen (specimen) 10/27/2020 us Nicolás Diego MD LAB BLOOD ORDERABLES [facility] Result EXTERNAL LAB * Lipid panel (03/29/2019 11:26 PM FIELD SERVICE REP) Cholesterol 142 30 - 199 mg/dL [facility] Comment: Interpretive Data Ages < or [...] on 2017. HDL 61 >=40 mg/dL [facility] Comment: Interpretive Data Ages < or [...] on 2017. LDL, calculated 53 <=129 mg/dL [facility] Comment: Interpretive Data Ages < or [...] on 2017. Non-HDL Cholesterol 81 mg/dL [facility] Comment: Interpretive Data Ages < or [...] last revised on 2017. Chol/HDL ratio 2 [facility] Blood specimen (specimen) 03/29/2019 11:26 PM FIELD SERVICE REP 03/30/2019 12:01 AM FIELD SERVICE REP Amilcar Mayer MD LAB BLOOD ORDERABLES Final Res ult Performing Organization Address [facility] de Phone Number [facility] [place] [address] * (ABNORMAL) POCT hemoglobin A1c (03/08/2019 9:22 AM FIELD SERVICE REP) Hgb A1C, POC 7.3(H) 4.0 - 6.0 % [facility] Est Average Gluc POC 163 mg/dL [facility] Comment: The ADA recommends reporting an estimated Average Glucose (eAG) with all Hemoglobin A1c results using the equation derived from a study of 507 normal and diabetic adults. Minority populations were underrepresented and children were not included. (Diabetes Care 31:9219-2723, 2008). The eAG is not equivalent to a fasting glucose. Blood specimen (specimen) 03/08/2019 9:22 AM FIELD SERVICE REP 03/08/2019 9:22 AM FIELD SERVICE REP Amilcar Mayer MD POINT OF CARE TEST ORDERABLES Final Result Performing Organization Address [facility] de Phone Number [facility] Department [place] [address] from Last 3 Months or Most Recently Relevant to Health Maintenance Insurance [employer] MEDICARE [employer] MEDICARE MEDICARE [employer] Advance Directives For more information, please contact: [phone] * Full Code (Latest Code Status on File) Date Activated Date Inactivated Comments 03/29/2019 12:15 PM 03/30/2019 3:43 PM * Full Code Date Activated Date Inactivated Comments 03/06/2019 9:42 AM 03/06/2019 4:19 PM Care Teams Time Checker Relationship Specialty Start Date End Date Eulogio Sullivan MD [address] [facility] [address] [place] [address] PCP - General 04/20/11 Rohith Corona MD [address] [facility] [address] [place] [address] Referring Physician Obstetrics and Gynecology 02/16/19 Jamari Ochoa MD [address] [address] Consulting Physician Cardiology 02/16/19
--- OUTSIDE RECORDS SUMMARY | 2024-06-22 07:12 | XMS_ITS | Clinical Summary ---
Author Organization [facility] Address [address] [address] Phone Care Team Providers Care Live In Housekeeper Nanny Name Role Phone Eulogio Sullivan MD Primary Care Provider [phone] Allergies Active Allergy Reactions Criticality Noted Date [...] 15 mg by mouth daily 04/01/2019 Active [place]oria-3 1000 MG capsule Take 1 capsule by [...] 07/23/2020 Active Cholecalciferol (Vitamin D3) 1.25 MG (31788 UT) capsule 01/21/2021 Active Novofine Pen Needle [...] with supraventricular tachycardia: a report of the [place] College of Cardiology/[place] Heart Association Task Force on Clinical Practice Guidelines and the Heart Rhythm Society. Circulation. 2016;133;m761-n210. Class I: Catheter ablation of the CTI is useful in patients with atrial flutter that is either symptomatic or refractory to pharmacological rate control. Cancer of endometrium 02/16/2019 Overview (06/09/2020): Added automatically from request for surgery [id number] Paroxysmal atrial fibrillation 01/31/2018 Complete heart block [...] (#1) 2023 4, 12/25/2012, 01/05/2012 Care Teams Live In Housekeeper Nanny Relationship Specialty Start Date End Date Eulogio Sullivan MD [address] [place] [address] PCP - General Internal Medicine 05/01/20
--- OUTSIDE RECORDS SUMMARY | 2024-06-22 07:12 | XMS_ITS | Clinical Summary ---
Author Organization [facility] Address [address] [place] [address] Care Team Providers Care Manager Business Management Name Role Phone Eulogio Sullivan MD Primary Care Provider [phone] Source Comments [facility],non-owned Affiliates and Associated Physician Practices is amultiple site organization consisting of ambulatory clinics and hospital sitesin [place], [place], [place] and [place]. This disclosure is being madepursuant to the Care Everywhere program and may not contain all information available regarding this patient. Last updated 17.[facility] Allergies Active Allergy Reactions Criticality Noted Date [...] Comments Blood Pressure 196/80 02/14/2019 2:09 PM SET PAINTER Pulse 77 02/14/2019 2:09 PM SET PAINTER Temperature - - Respiratory Rate - - Oxygen Saturation - - Inhaled Oxygen Concentration - - Weight 63.5 kg (140 lb) 02/14/2019 2:09 PM SET PAINTER Height 162.6 cm (5' 4 ) 02/14/2019 2:09 PM SET PAINTER Body Mass Index 24.03 02/14/2019 2:09 PM SET PAINTER Plan of Treatment Health Maintenance Due Date [...] age to complete this topic Care Teams Manager Business Management Relationship Specialty Start Date End Date Eulogio Sullivan MD [address] [facility] [address] [place] [address] PCP - General 02/12/19
--- OUTSIDE RECORDS SUMMARY | 2024-06-22 07:12 | XMS_ITS | Referral Summary ---
Author Organization [facility] Address [address] [place] [address] Care Team Providers Care Supervisor Of Research Name Role Phone Eulogio Sullivan MD Primary Care Provider [phone] Rohith Corona MD Unavailable [phone] Jamari Ochoa MD Unavailable [phone] Encounters Date Type Department Care Team Description 06/14/2024 1:45 PM CDT Ancillary Procedure [facility] Cardiology [address] [facility] [address] [place] [address] Cardiac pacemaker in situ; Complete heart [...] 1 tablet (300 mg total) by mouth progressive care nurse before breakfast 07/13/19 18 Active blood glucose diagnostic strip 1 each by Not Applicable route as directed 08/25/19 19 Active pen needle, diabetic 32 gauge x needle 1 Stick by Not Applicable route as directed 09/25/20 19 Active multivitamin capsuleIndicati ons:Vitamin Deficiency Prevention Take 1 capsule by mouth progressive care nurse before breakfast Active omega 9-szh-hee-fish oil 1,000 mg (120 mg-180 mg) capsuleIndicati [...] with supraventricular tachycardia: a report of the [place] College of Cardiology/[place] Heart Association Task Force on Clinical Practice Guidelines and the Heart Rhythm Society. Circulation. 2016;133;r497-v542. Class I: Catheter ablation of the CTI is useful in patients with atrial flutter that is either symptomatic or refractory to pharmacological rate control. Other abnormal clinical finding 08/21/2019 Other symptoms involving cardiovascular system 0 08/21/2019 Coronary atherosclerosis 08/21/2019 Special screening for malignant neoplasms, colon 08/21/2019 Anticoagulation management encounter 08/21/2019 Assessment & Plan (10/19/2020 11:19 AM CDT): The patient has a [id number] score of 6 (annualized risk of stroke HIGH%). I have therefore recommended that she remain anticoagulated for thromboprophylaxis. Endometrial cancer 02/16/2019 Overview (02/16/2019): Added automatically from request for surgery [id number] Encounter for antineoplastic chemotherapy 2018 Overview (02/16/2019): Added automatically from request for surgery [id number] CAD (coronary artery disease) 09/23/2016 S/P CABG (coronary artery bypass graft) 09/24/19 17 Complete heart block 09/23/2016 Presence of cardiac pacemaker 09/23/2016 Overview (08/29/2020): Medtronic Dual Pacemaker Dx; SSS, CHB. Gen change 06/01/2019-Fleissner, chronic leads 06/1999. Alternate carelink remote and office checks Q6 mo. 06/01/2019-carelink relay monitor ordered. JR Atrial lead impedance 300-500 ohms, bipolar 5905-4256 ohms-normal function. Assessment & Plan (10/19/2020 11:21 [...] on file Legal Sex Female 6:14 AM MEDIA PLANNER Gender Identity Not on file Sexual Orientation [...] on file Medical Devices Implanted Type Area Gravel Machine Operator Device Identifier Shelf Expiration Date Model / Serial / Lot [employer] [id number] System 6-12fr Mvp Venous Closure Vascade - [id number] - [id number] Implanted:Qty: 1 on 11/04/2020 by Nicolás Diego MD at [facility] Collagen [employer] 09/01/2022 [id number] / [id number] / [id number] [employer] [id number] Vascade 6/7fr Bioabsorbable Vascular System Compression Collagen - [id number] - [id number] Implanted:Qty: 1 on 11/04/2020 by Nicolás Diego MD at [facility] Collagen [employer] 06/30/2022 [id number] [id number] / [id number] / [id number] [employer] [id number] Vascade 6/7fr Bioabsorbable Vascular System Compression Collagen - [id number] - [id number] Implanted:Qty: 1 on 11/04/2020 by Nicolás Diego MD at [facility] Collagen [employer] 06/30/2022 [id number] [id number] / [id number] / [id number] Pacemaker- 3 Implanted: 013 by Jamari Ochoa MD (Quantity not on file) Pacemaker Chest Medtronic SSS, CHB ADAPTA / [id number] / CHRONIC LEADS 06/1999 Procedures Procedure Name Priority Date/Time Associated Diagnosis Comments DEVICE CHECK - REMOTE Routine 06/14/2024 3:41 PM CDT Cardiac pacemaker in situ Complete heart block (HCC) SSS (sick sinus syndrome) (HCC) Atrial fibrillation and flutter (HCC) BASIC METABOLIC PANEL Routine 10/27/2020 Typical atrial flutter (HCC) Presence of cardiac pacemaker LIPID PANEL Routine 03/29/2019 11:26 PM MEDIA PLANNER POCT HEMOGLOBIN A1C Routine 03/08/2019 9 :22 AM MEDIA PLANNER from Last 3 Months or Most Recently Relevant to Health Maintenance Results * DEVICE CHECK - REMOTE (06/14/2024 3:41 PM CDT) Anatomical Region Laterality Modality Other Narrative 06/19/2024 11:12 AM CDT Medtronic Dual Pacemaker Dx; SSS, CHB. Gen change 06/01/2019-Don, chronic leads 06/1999. Alternate carelink remote and office checks Q6 mo. 06/01/2019-carelink relay monitor ordered. JR Atrial lead impedance 300-500 ohms, bipolar 4134-8382 ohms-normal function. Routine DDDR Pacemaker Remote. Transmission attached. Battery status: 2.92 V, 1.9 years remaining battery life to MARLENE. Stable lead impedances, pacing and sensing thresholds. Presenting rhythm: AP/USABILITY ARCHITECT AP-8.6%, USABILITY ARCHITECT-99.8% 4082 AT/AF episodes noted, longest episode was 8 hours and 5 minutes in duration, IEGM demonstrates AFib and oversensing of R-wave on atrial channel. AF Alplaus 97.1%. No Ventricular high rate episodes detected. [...] mg/dl EXTERNAL LAB SCRIBED eGFR in NonAfrican Macanese 31(A) 60 - L EXTERNAL LAB Blood specimen (specimen) 10/27/2020 Nicolás Diego MD LAB BLOOD ORDERABLES Fi nal Result EXTERNAL LAB * Lipid panel (03/29/2019 11:26 PM MEDIA PLANNER) Cholesterol 142 30 - 199 mg/dL [facility] [...] on 2017. HDL 61 >=40 mg/dL [facility] Comment: Interpretive Data Ages < or [...] 2017. LDL, calculated 53 <=129 mg/dL [facility] Comment: Interpretive Data Ages < or [...] on 2017. Non-HDL Cholesterol 81 mg/dL [facility] Comment: Interpretive Data Ages < or [...] last revised on 2017. Chol/HDL ratio 2 [facility] Blood specimen (specimen) 03/29/2019 11:26 PM MEDIA PLANNER 03/30/2019 12:01 AM MEDIA PLANNER Amilcar Mayer MD LAB BLOOD ORDERABLES Final Res ult Performing Organization Address [facility] de Phone Number [facility] [place] [address] * (ABNORMAL) POCT hemoglobin A1c (03/08/2019 9:22 AM MEDIA PLANNER) Hgb A1C, POC 7.3(H) 4.0 - 6.0 % [facility] Est Average Gluc POC 163 mg/dL [facility] Comment: The ADA recommends reporting an estimated Average Glucose (eAG) with all Hemoglobin A1c results using the equation derived from a study of 507 normal and diabetic adults. Minority populations were underrepresented and children were not included. (Diabetes Care 31:2198-2915, 2008). The eAG is not equivalent to a fasting glucose. Blood specimen (specimen) 03/08/2019 9:22 AM MEDIA PLANNER 03/08/2019 9:22 AM MEDIA PLANNER Result [facility] Amilcar Mayer MD POINT OF CARE TEST ORDERABLES Final Result Performing Organization Address [facility] de Phone Number [facility] [place] [address] from Last 3 Months or Most Recently Relevant to Health Maintenance Insurance [employer] MEDICARE [facility] [employer] MEDICARE MEDICARE [employer] Advance Directives For more information, please contact: [phone] * Full Code (Latest Code Status on File) Date Activated Date Inactivated Comments 03/29/2019 12:15 PM 03/30/2019 3:43 PM * Full Code Date Activated Date Inactivated Comments 03/06/2019 9:42 AM 03/06/2019 4:19 PM Care Teams Supervisor Of Research Relationship Specialty Start Date End Date Eulogio Sullivan MD [address] [place] [address] PCP - General 04/20/11 Rohith Corona MD [address] [place] [address] Referring Physician Obstetrics and Gynecology 02/16/19 Jamari Ochoa MD [address] [place] [address] Consulting Physician Cardiology 02/16/19
--- OUTSIDE RECORDS SUMMARY | 2024-06-22 07:12 | XMS_ITS | Continuity of Care Document ---
Author Organization [facility] Address [address] [place] [address] Phone Care Team Providers Care Vaccinator Name Role Phone Faheem Johnson DO Unavailable [...] Each cc Kenalog 10 Mg [facility] Advance Directives Directive Yes / No Effective Date File Name No Information Encounters Encounter Description Practice Location Reason(s) For Visit Diagnoses Date Provider Providers Copied on Encounter Office/outpatient visit,eladio, Alejandro [facility], [address], [place], [place], [id number], tel:[phone] [place] Upper Extremity Pain (chief complaint) Adhesive capsulitis of left shoulder 0-201 8 Alex Michael. [address], [address], [place], [place], [id number] , . tel:[phone] Referring Provider: Faheem Johnson DO A, [address], [place], [address] . tel:[phone] Family History Family Member Type Diagnosis Age At Onset No Information Payers Payer name Insurance type Covered green party ID Authoriza tion(s) Medicare OR 10 Fl [id number] [employer] 5 Co [id number] Social History Type Description Quantity Date Captured [...]
--- OUTSIDE RECORDS SUMMARY | 2024-06-22 07:12 | XMS_ITS | Encounter Summary ---
Author Organization [facility] Address [address] [facility] [address] [place] [address] Care Team Providers Care Lawn Service Manager Name Role Phone Eulogio Sullivan MD Primary Care Provider [phone] Rohith Corona MD Unavailable [phone] Jamari Ochoa MD Unavailable [phone] Encounter Details Date Type Department Care Team (Late st Contact Info) Description 04/13/2016 Orders Only [facility] ProviderJessy MD [address] [place] [address] Social History Tobacco Use Types Packs/Day Years Used Date Smoking Tobacco: Former Cigarettes Q uit: 03/28/2009 Alcohol Use Standard Drinks/Week Comments No 0 (1 standard drink = 0.6 oz pur e alcohol) Comments Unknown Sex and Gender Information Value Date Recorded Sex Assigned at Not on file Legal Sex Female 6:14 AM IMPLANT POLISHER Gender Identity Not on file Sexual Orientation [...] on filedocumented in this encounter Care Teams Lawn Service Manager Relationship Specialty Start Date End Date Eulogio Sullivan MD [address] [place] [address] PCP - General 04/20/11 Rohith Corona MD [address] [facility] [address] [place] [address] Referring Physician Obstetrics and Gynecology 02/16/19 Jamari Ochoa MD [address] [facility] [address] [place], [place] [id number] Consulting Physician Cardiology 02/16/19 documented as of this encounter
[2024-06-22 07:52] LABS: Basophils Absolute Auto 0.1 K/mm3 (0.0-0.1); Basophils Percent Auto 0.9 % (0.2-1.2); Eosinophils Absolute Auto 0.1 K/mm3 (0-0.3); Eosinophils Percent Auto 1.5 % (0-4.4); Hematocrit 46.1 % (37.0-47.0); Hemoglobin 14.4 g/dL (12.0-15.0); Immature Granulocyte Absolute 0.01 K/mm3 (0.00-0.031); Immature Granulocyte Percent A 0.1 % (0-0.5); Lymphocytes Percent Auto 40.4 % (18.3-44.2); Mean Corpuscular HGB Conc 31.2 g/dl (32-36); Mean Corpuscular Hemoglobin 31.9 pg (26-34); Mean Platelet Volume 9.6 fl (7.4-10.4); Monocytes Absolute Auto 0.4 K/mm3 (0.1-0.6); Monocytes Percent Auto 5.2 % (2.6-8.5); Neutrophils Absolute Auto 4.1 K/mm3 (1.3-6.7); Neutrophils Percent Auto 51.9 % (45.5-73.1); Platelet Count Result 169 k/mm3 (150-375); Red Blood Count 4.52 M/mm3 (4.2-5.4); Red Cell Distribution Width 14.5 % (11.5-14.5); White Blood Count 7.9 K/mm3 (4.5-10.0)
[2024-06-22 08:03] LABS: Alanine Aminotransferase 22 U/L (6-35); Albumin Level 4.5 g/dL (3.5-5.1); Alkaline Phosphatase 130 U/L (38-126); Anion Gap 7 mmol/L (4-12); Aspartate Amino Transferase 41 U/L (14-36); Bilirubin,Total 0.8 mg/dL (0.2-1.3); Blood Urea Nitrogen 33 mg/dL (7-17); Calcium 10.3 mg/dL (8.4-10.2); Carbon Dioxide 31 mmol/L (22-30); Chloride 101 mmol/L (98-107); Cholesterol 207 mg/dL (0-200); Estimated Glomerular Filt Rate 25; Glucose 141 mg/dL (65-110); HDL Direct 102 mg/dL; Potassium 4.7 mmol/L (3.4-5.0); Sodium 139 mmol/L (137-145); Triglycerides 246 mg/dL (<150)
[2024-06-22 08:08] LABS: Add Urine Microscopic? YES; Appearance Urine Clear (Clear); Bacteria Urine None Seen /hpf; Bilirubin Urine Negative (Negative); Blood Urine Negative (Negative); Color Urine Yellow (Yellow); Glucose Urine UA 3+ mg/dL (Negative); Ketones Urine Negative (Negative); Leukocyte Esterase Ur Negative LEU/UL (Negative); Nitrate Urine Negative (Negative); Non Pathogenic Casts 0-2; Protein Urine 3+ mg/dL (Negative); RBC Urine 0-2 /hpf (0-2); Specific Grav Ur 1.017 (1.001-1.035); Squamous Epithelial Cell Urine None Seen /hpf (Few); Urobilinogen Urine 0.2 mg/dL (<2.0); WBC Urine 0-5 /hpf (0-3)
[2024-06-22 08:17] LABS: LDL Cholesterol Direct 58 mg/dL
[2024-06-22 08:48] LABS: Free T4 Free Thyroxine 1.31 ng/dL (0.78-2.19)
[2024-06-22 09:14] LABS: Folic Acid > 20.0 ng/mL (2.76->20)
== END 2024-06-22 07:09 | disposition home or self-care (01) ==
LOC: ANHLAB 07:10
PROVIDERS: PCP Internal Medicine; Visit Provider Internal Medicine
DX: N18.30 Chronic kidney disease, stage 3 unspecified (principal); I12.9 Hypertensive chronic kidney disease with stage 1 through stage 4 chronic kidney disease, or unspecified chronic kidney disease; E78.5 Hyperlipidemia, unspecified; Z79.899 Other long term (current) drug therapy; E11.22 Type 2 diabetes mellitus with diabetic chronic kidney disease; E53.8 Deficiency of other specified B group vitamins; Z13.29 Encounter for screening for other suspected endocrine disorder
CPT/HCPCS: 36415; 80053; 80061; 81001; 82607; 82746; 83036; 84439; 84443; 85025

== ENCOUNTER 2024-07-04 11:16 | Outpatient (CLI) | payer MEDICARE, SELFPAY ==
--- OUTSIDE RECORDS SUMMARY | 2024-07-04 13:00 | XMS_ITS | Clinical Summary ---
Author Organization [facility] Address [address] [place] [address] Care Team Providers Care Manufacturing Maintenance Mechanic Name Role Phone Eulogio Sullivan MD Primary Care Provider [phone] Source Comments [facility],non-owned Affiliates and Associated Physician Practices is amultiple site organization consisting of ambulatory clinics and hospital sitesin [place], [place], [place] and [place]. This disclosure is being madepursuant to the Care Everywhere program and may not contain all information available regarding this patient. Last updated 17.[facility] Allergies Active Allergy Reactions Criticality Noted Date [...] Comments Blood Pressure 196/80 02/14/2019 2:09 PM DRYWALL APPLICATOR Pulse 77 02/14/2019 2:09 PM DRYWALL APPLICATOR Temperature - - Respiratory Rate - - Oxygen Saturation - - Inhaled Oxygen Concentration - - Weight 63.5 kg (140 lb) 02/14/2019 2:09 PM DRYWALL APPLICATOR Height 162.6 cm (5' 4 ) 02/14/2019 2:09 PM DRYWALL APPLICATOR Body Mass Index 24.03 02/14/2019 2:09 PM DRYWALL APPLICATOR Plan of Treatment Health Maintenance Due Date [...] VACCINE ( - 2023-2 5 season) 2023 DEPRESSION SCREENING 03/28/2024 INFLUENZA VACCINE (Season Ended) 2024 HEPATITIS B VACCINE Aged Out No longe [...] age to complete this topic Care Teams Manufacturing Maintenance Mechanic Relationship Specialty Start Date End Date Eulogio Sullivan MD [address] [facility] [address] [facility] [address] [place] [address] PCP - General 02/12/19
--- OUTSIDE RECORDS SUMMARY | 2024-07-04 13:00 | XMS_ITS | Continuity of Care Document ---
Author Organization [facility] Address [address] [place] [address] Phone Care Team Providers Care Grain Miller Helper Name Role Phone Faheem Johnson DO Unavailable [...] Each cc Kenalog 10 Mg [facility] Advance Directives Directive Yes / No Effective Date File Name No Information Encounters Encounter Description Practice Location Reason(s) For Visit Diagnoses Date Provider Providers Copied on Encounter Office/outpatient visit,eladio, Alejandro [facility], [address], [place], [place], [id number], tel:[phone] [place] Upper Extremity Pain (chief complaint) Adhesive capsulitis of left shoulder 0-201 8 Alex Michael. [address], [address], [place], [place], [id number] , . tel:[phone] Referring Provider: Faheem Johnson DO A, [address], [place], [address] . tel:[phone] Family History Family Member Type Diagnosis Age At Onset No Information Payers Payer name Insurance type Covered democrat ID Authoriza tion(s) Medicare OR 10 [place] [id number] [employer] Company 5 Co [id number] Social History Type Description Quantity Date Captured [...]
--- OUTSIDE RECORDS SUMMARY | 2024-07-04 13:00 | XMS_ITS | Continuity of Care Document ---
Author Organization [facility] Address [address] [place] [address] [address] [place] [address] Phone Care Team Providers Care Orchid Superintendent Name Role Phone Jennifer Virgen Unavailable Unavailable Procedures Procedure Date Eye Exam & Treatment Dilated Retinal Exam W Interpretation De Refraction Advance Directives Directive Yes / No Effective Date File Name No Information Encounters Encounter Description Practice Location Reason(s) For Visit Diagnoses Date Provider Providers Copied on Encounter [facility], [address], [place], [place], [id number], [place] tel:[phone] [facility] No Information [address]. [address] , [address], [place], [address], [place]. tel:[phone] Family History Family Member Type Diagnosis Age At Onset No Information Payers Payer name Insurance type Covered green party ID Authoriza tion(s) [place] [id number] Social History Type Description Quantity Date Captured [...]
--- OUTSIDE RECORDS SUMMARY | 2024-07-04 13:00 | XMS_ITS | Clinical Summary ---
Author Organization [facility] Address [address] [place] [address] Phone Care Team Providers Care Channel Executive Name Role Phone Eulogio Sullivan MD Primary Care Provider [phone] Allergies Active Allergy Reactions Criticality Noted Date Comments Rock Inhibitors Unknown 06/29/2010 Losartan Hives Medium 02/14/2019 Medications allopurinol (ZYLOPRIM) 300 MG tablet Take 300 mg by mouth 1 (one) time each day 05/07/2020 Active glimepiride (AMARYL) 2 MG tablet TAKE 1 TABLET BY MOUTH ONCE DAILY IN THE MORNING 05/07/2020 Active hydrALAZINE (APRESOLINE) 25 MG tablet Take 25 mg by mouth 2 (two) times a day 03/19/2020 Active Toulianneo SoloStar 300 UNIT/ML solution pen-injector 05/28/2020 Active rosuvastatin (CRESTOR) 10 MG tablet Take 10 mg by mouth 1 (one) time each day 05/07/2020 Active rivaroxaban (XARELTO) 15 MG tablet Take 15 mg by mouth daily 04/01/2019 Active Salamonia-3 1000 MG capsule Take 1 capsule by mouth 2 times daily Active Multiple Vitamin (multivitamin) capsule Take 1 capsule by mouth daily Active Januvia 50 MG tablet 04/13/2020 Active sotalol (BETAPACE) 80 MG tablet Take 80 mg by mouth 2 (two) times a day 05/07/2020 Active aliskiren (TEKTURNA) 150 MG tablet Take 0.5 tablets (75 mg total) by mouth 1 (one) time each day 30 tablet 3 07/23/2020 Active Cholecalciferol (Vitamin D3) 1.25 MG (57512 UT) capsule 01/21/2021 Active Novofine Pen Needle 32G X 6 MM misc USE 1 ONCE DAILY WITH TOUJEO PEN 11/11/2021 Active Active Problems Problem Noted [...] with supraventricular tachycardia: a report of the [place]ian College of Cardiology/Haitian Heart Association Task Force on Clinical Practice Guidelines and the Heart Rhythm Society. Circulation. 2016;133;s956-s737. Class I: Catheter ablation of the CTI is useful in patients with atrial flutter that is either symptomatic or refractory to pharmacological rate control. Cancer of endometrium 02/16/2019 Overview (06/09/2020): Added automatically from request for surgery [id number] Paroxysmal atrial fibrillation 01/31/2018 Complete heart block [...] and stenosis of basilar artery 011 Immunizations Immunization Administration Dates Next Due Influenza Split High [...] more drinks on one occasion? Never 06/02/2020 Comments Unknown Sex and Gender Information Value Date Recorded Sex Assigned at Not on file Legal Sex Female 2:25 PM [facility] Gender Identity Not on file Sexual Orientation [...] PPSV23 or PCV20) 10/10/2019 10/09/2018 COVID-19 Vaccine ( season) 2023, 05/08/2020 Influenza Vaccine (Season Ended) 2024 12/15/2013, 12/25/2012, 01/05/2012 Insurance MEDICARE [facility] Care Teams Channel Executive Relationship Specialty Start Date End Date Eulogio Sullivan MD [address] [place] [phone] PCP - General Internal Medicine 05/01/20
[2024-07-05 07:34] LABS: Creatinine, Random Urine 48 mg/dL (20-275); Total Prot/Creat ratio mg/mg 9.917 (0.024-0.184); Total Protein/Creatinine Ratio 9917 mg/g creat (24-184)
[2024-07-05 08:04] LABS: Protein, Total 7.8 g/dL (6.1-8.1)
[2024-07-05 20:58] LABS: Albumin 3.7 g/dL (3.8-4.8); Alpha 1 Globulin 0.3 g/dL (0.2-0.3); Alpha 2 Globulin 0.9 g/dL (0.5-0.9); Beta 1 Globulin 0.6 g/dL (0.4-0.6); Gamma Globulin 1.6 g/dL (0.8-1.7)
== END 2024-07-04 11:17 | disposition home or self-care (01) ==
LOC: ANHLAB 11:17
PROVIDERS: PCP Internal Medicine; Visit Provider Internal Medicine
DX: R77.9 Abnormality of plasma protein, unspecified (principal); R80.9 Proteinuria, unspecified
CPT/HCPCS: 36415; 82570; 84155; 84156; 84165; 84166

== ENCOUNTER 2024-11-07 07:24 | Outpatient (CLI) | payer MEDICARE, SELFPAY ==
--- OUTSIDE RECORDS SUMMARY | 2024-11-07 07:27 | XMS_ITS | Encounter Summary ---
Author Organization [facility] Address [address] [place] [address] Care Team Providers Care Commercial Account Officer Name Role Phone Eulogio Sullivan MD Primary Care Provider [phone] Rohith Corona MD Unavailable [phone] Jamari Ochoa MD Unavailable [phone] Encounter Details Date Type Department Care Team (Late st Contact Info) Description 04/13/2016 Orders Only [facility] ProviderJessy MD [address] [place] [address] Social History Tobacco Use Types Packs/Day Years Used Date Smoking Tobacco: Former Cigarettes Q uit: 03/28/2009 Alcohol Use Standard Drinks/Week Comments No 0 (1 standard drink = 0.6 oz pur e alcohol) Comments Unknown Sex and Gender Information Value Date Recorded Sex Assigned at Not on file Legal Sex Female 6:14 AM DIRECTOR BUSINESS DEVELOPMENT Gender Identity Not on file Sexual Orientation [...] on filedocumented in this encounter Care Teams Commercial Account Officer Relationship Specialty Start Date End Date Eulogio Sullivan MD [address] [place] [address] PCP - General 04/20/11 Rohith Corona MD [address] [facility] [address] [place] [address] Referring Physician Obstetrics and Gynecology 02/16/19 Jamari Ochoa MD [address] [facility] [address] [place], [place] [address] Consulting Physician Cardiology 02/16/19 documented as of this encounter
--- OUTSIDE RECORDS SUMMARY | 2024-11-07 07:27 | XMS_ITS | Clinical Summary ---
Author Organization [facility] Address [address] [place] [address] Phone Care Team Providers Care Vp Patient Name Role Phone Eulogio Sullivan MD Primary Care Provider [phone] Allergies Active Allergy Reactions Criticality Noted Date [...] 15 mg by mouth daily 04/01/2019 Active Penryn-3 1000 MG capsule Take 1 capsule by [...] 07/23/2020 Active Cholecalciferol (Vitamin D3) 1.25 MG (73819 UT) capsule 01/21/2021 Active Novofine Pen Needle [...] appropriate arrangements. From: Kiara RL, Gisele JA, Ablaro MA, Geneva H, Analy DUSTIN, Serjio BJ, Juma PAGAN 3rd, [place], Teodoro CoffmanD, Clint SC, Adrian JH, Becki BD, Jeffrey B, Kevin AM, Byron W-K, Elvira CM, Al-Efrain SM. 2015 ACC/AHA/HRS guideline for the management of adult patients with supraventricular tachycardia: a report of the Burundian College of Cardiology/Burundian Heart Association Task Force on Clinical Practice Guidelines and the Heart Rhythm Society. Circulation. 2016;133;x541-g952. Class I: Catheter ablation of the CTI is useful in patients with atrial flutter that is either symptomatic or refractory to pharmacological rate control. Cancer of endometrium 02/16/2019 Overview (06/09/2020): Added automatically from request for surgery [id number] Paroxysmal atrial fibrillation 01/31/2018 Complete heart block [...] on file Legal Sex Female 2:25 PM [facility] Gender Identity Not on file Sexual Orientation [...] 11:20 AM CDT Height 162.6 cm (5' 4) 12/23/2021 11:20 AM CDT Body Mass Index 21.63 12/23/2021 11:20 AM CDT Plan of Treatment Health Maintenance Due Date Last Done Comments Pneumococcal PPSV23/PCV13 65 + Years / Low and Medium Risk (2 of 3 - PCV20 or PCV21) 10/10/2019 10/09/2018 COVID-19 Vaccine (3 - season) 2023, 05/08/2020 Influenza Vaccine (#1) 2024 4, 12/25/2012, 01/05/[address] [facility] Care Teams Vp Patient Relationship Specialty Start Date End Date Eulogio Sullivan MD [address] [place] [address] PCP - General Internal Medicine 2/4/21
--- OUTSIDE RECORDS SUMMARY | 2024-11-07 07:27 | XMS_ITS | Clinical Summary ---
Author Organization [facility] Address [address] [place] [address] Care Team Providers Care Monument Setter Helper Name Role Phone Eulogio Sullivan MD Primary Care Provider [phone] Rohith Corona MD Unavailable [phone] Jamari Ochoa MD Unavailable [phone] Allergies Active Allergy Reactions Criticality Noted Date Comments Rock Inhibitors Unknown 06/29/2010 Losartan Hives Medium Medications rosuvastatin (CRESTOR) 10 mg tablet take 1 tablet (10MG) by oral route every day 0 01/17/20 12 Active allopurinol (ZYLOPRIM) 300 mg tabletIndicatio ns:prevention of acute gout attack Take 1 tablet (300 mg total) by mouth supervisor composing room before breakfast 07/13/19 18 Active blood glucose diagnostic strip 1 each by Not Applicable route as directed 08/25/19 19 Active pen needle, diabetic 32 gauge x needle 1 Stick by Not Applicable route as directed 12/21/19 19 Active multivitamin capsuleIndicati ons:Vitamin Deficiency Prevention Take 1 capsule by mouth supervisor composing room before breakfast Active omega 1-lup-qti-fish oil 1,000 mg (120 mg-180 mg) capsuleIndicati [...] Date Diagnosed Date Permanent atrial fibrillation 12/30/2023 Assessment & Plan (07/12/2024 9:41 AM CDT): -Asymptomatic longstanding persistent atrial fibrillation -Remains compliant on rivaroxaban -no medication changes were made today -EKG today demonstrates RV pacing with underlying atrial fibrillation -Patient wishes to follow up with Dr. Ochoa, as he is closer to her Typical atrial flutter 08/07/2020 Assessment & Plan [...] Teodoro LANDAVERDE, Clint SC, Adrian JH, Becki RODGERS, Jeffrey Snyder, Kevin AM, Byron HendersonK, Elvira CM, Al-Efrain SM. 2015 ACC/AHA/HRS guideline for the management of adult patients with supraventricular tachycardia: a report of the [place] College of Cardiology/[place] Heart Association Task Force on Clinical Practice Guidelines and the Heart Rhythm Society. Circulation. 2016;133;e385-d128. Class I: Catheter ablation of the CTI is useful in patients with atrial flutter that is either symptomatic or refractory to pharmacological rate control. Other abnormal clinical finding 08/21/2019 Other symptoms involving cardiovascular system 0 08/21/2019 Coronary atherosclerosis 08/21/2019 Special screening for malignant neoplasms, colon 08/21/2019 Anticoagulation management encounter 08/21/2019 Assessment & Plan (07/12/2024 9:40 AM CDT): -Remains compliant on rivaroxaban -denies any issues with bruising or bleeding -Recommend continued therapy for thromboprophylaxis Assessment & Plan (10/19/2020 11:19 AM CDT): The patient has a [id number] score of 6 (annualized risk of stroke HIGH%). I have therefore recommended that she remain anticoagulated for thromboprophylaxis. Endometrial cancer 02/16/2019 Overview (02/16/2019): Added automatically from request for surgery [id number] Encounter for antineoplastic chemotherapy 2018 Overview (02/16/2019): Added automatically from request for surgery [id number] CAD (coronary artery disease) 09/23/2016 S/P CABG (coronary artery bypass graft) 09/24/19 17 Complete heart block 09/23/2016 Presence of cardiac pacemaker 09/23/2016 Overview (08/29/2020): Medtronic Dual Pacemaker Dx; SSS, CHB. Gen change 06/01/2019-Fleissner, chronic leads 06/1999. Alternate carelink remote and office checks Q6 mo. 06/01/2019-carelink relay monitor ordered. JR Atrial lead impedance 300-500 ohms, bipolar 7494-5111 ohms-normal function. Assessment & Plan (10/19/2020 11:21 [...] mellitus 06/2010 Cardiac pacemaker in situ 06/29/2010 Assessment & Plan (07/12/2024 9:41 AM CDT): -Status post dual-chamber pacemaker placement -Device interrogation today shows 80% RA pacing and 99.8% RV pacing. No ventricular episodes noted. -The patient's device was interrogated today and found to be functioning appropriately. No significant programming changes were made at this time. The patient will continue to be followed through the [facility] device [facility] remotely and with in office device interrogations as needed. Resolved Problems Problem Noted Date Diagnosed Date Resolved Date Paroxysmal atrial fibrillation 01/31/2018 12/30/2023 Encounters Date Type Department Care Team Description 10/01/2024 Orders Only [facility] Cardiology [address] [place] [address] [place] [phone] Jamari Ochoa MD Cardiac pacemaker in situ (Primary Dx); Complete heart block (HCC); Presence of cardiac pacemaker; Permanent atrial fibrillation (HCC) 09/18/2024 7:45 AM CDT Ancillary Procedure [facility] Cardiology [address] [place] [address] Suite [facility] [place] [address] Cardiac pacemaker in situ; Complete heart block [...] Hypertension Hypercholesteremia Diabetes mellitus (HCC) Endometrial cancer 02/19/2019 SSS (sick sinus syndrome) (HCC) 2000 Medtronic pacemaker s/p generator change 2004, 2012 [...] on file Legal Sex Female 6:14 AM REACTOR KETTLE OPERATOR Gender Identity Not on file Sexual Orientation Not on file Obstetrics History Para Term AB IAB SAB Ectopic Multiple Livin g Live Births 5 3 3 2 2 3 3 Date Outcome GA Total Labor Labor/2nd/3rd Weight Sex Type Anes PTL Trini A1 A5 Name Clin Term Term Term SAB SAB Last Filed Vital Signs Vital Sign Reading Time Taken Comments Blood Pressure 146/66 07/02/2024 1:35 PM CDT Pulse 74 07/02/2024 1:35 PM CDT Temperature 35.4 C (95.7 F) 11/04/2020 10:36 AM CDT Respiratory Rate 16 07/20/2023 8:52 AM CDT Oxygen Saturation 97% 07/02/2024 10:09 AM CDT Inhaled Oxygen Concentration - - Weight 55.8 kg (123 lb) 07/02/2024 1:35 PM CDT Height 162.6 cm (5' 4) 07/02/2024 1:35 PM CDT Body Mass Index 21.11 07/02/2024 1:35 PM CDT Plan of Treatment Health Maintenance Due Date Last Done Comments Albumin Creatinine Ratio, Urine 1942 Depression Screening 1942 Osteoporosis Screening-Bone Density Scan 1942 Dilated Eye Exam 1942 Foot Exam 1942 DTaP/Tdap/Td Vaccine (1 - Tdap) 1953 Hepatitis B Screening 1960 Well Visit 65+ 09/20/2007 Zoster Vaccine (2 of 3) 03/27/2013 01/30/2013 Pneumococcal vaccine 65+ (2 of 2 - PPSV23, PCV20, or PCV21) 12/04/2018 10/09/2018 Hemoglobin A1C 09/07/2019 03/08/2019 Lipid Panel 03/29/2020 03/29/2019, 05/0 08/2018, 02/02/2018, Additional history exists eGFR 10/27/2021 10/27/2020 Fall Risk Assessment 11/04/2021 11/04/2020 Covid-19 Vaccine (3 - 2023-2 5 season) 2023 06/16/2020, 05/08/2020 Influenza Vaccine (#1) 2024 , 12/24/2019, 12/14/2018, Additional history exists Medical Devices Implanted Type Area Cake Wrapper Device Identifier Shelf Expiration Date Model / Serial / Lot [employer] Inc [id number] System 6-12fr Mvp Venous Closure Vascade - [id number] - [id number] Implanted:Qty: 1 on 11/04/2020 by Nicolsá Diego MD at [facility] Collagen [employer] 09/01/2022 [id number] [id number] / [id number] / [id number] [employer] [id number] Vascade 6/7fr Bioabsorbable Vascular System Compression Collagen - [id number] - [id number] Implanted:Qty: 1 on 11/04/2020 by Nicolás Diego MD at [facility] Collagen [employer] 06/30/2022 700-580I- 05U / [id number] [id number] / [id number] [employer] [id number] Vascade 6/7fr Bioabsorbable Vascular System Compression Collagen - [id number] - [id number] Implanted:Qty: 1 on 11/04/2020 by Nicolás Diego MD at [facility] Coll[employer] 06/30/2022 700-580I- 05U / [id number] [id number] / [id number] Pacemaker- 3 Implanted: 013 by Jamari Ochoa MD (Quantity not on file) Pacemaker Chest Medtronic SSS, CHB ADAPTA / [id number] / CHRONIC LEADS 06/1999 Procedures Procedure Name Priority Date/Time Associated Diagnosis Comments DEVICE CHECK - REMOTE Routine 09/26/2024 8:14 AM CDT Cardiac pacemaker in situ Complete heart block (HCC) SSS (sick sinus syndrome) (HCC) Atrial fibrillation and flutter BASIC METABOLIC PANEL Routine 10/27/2020 Typical atrial flutter (HCC) Presence of cardiac pacemaker LIPID PANEL Routine 03/29/2019 11:26 PM REACTOR KETTLE OPERATOR POCT HEMOGLOBIN A1C Routine 03/08/2019 9 :22 AM REACTOR KETTLE OPERATOR from Last 3 Months or Most Recently Relevant to Health Maintenance Results * DEVICE CHECK - REMOTE (09/26/2024 8:14 AM CDT) Anatomical Region Laterality Modality Other Narrative 11/05/2024 7:36 AM CDT Medtronic Dual Pacemaker Dx; SSS, CHB. Gen change 06/01/2019-Don, chronic leads 06/1999. Alternate carelink remote and office checks Q6 mo. 06/01/2019-carelink relay monitor ordered. JR Atrial lead impedance 300-500 ohms, bipolar 0403-7007 ohms-normal function. Routine DDDR Pacemaker Remote. Transmission attached. Battery status: 2.90 , 1.6 remaining battery life to MARLENE. Stable lead impedances, pacing and sensing thresholds. Presenting rhythm: AP/RN NEW GRAD AP-62.2%, RN NEW GRAD-100.0% 2294 AT/AF episodes noted, longest episode was 4 hours and 33 minutes in duration, IEGM demonstrates AFib. AF [place] 35.3%. No Ventricular high rate episodes detected. Medications: Xarelto 15 mg, hydralazine 25 mg See scanned report. Office pacemaker follow up: 6 months CareLink remote f/u 12/26/24. Mac Hyatt RN us Jamari Ochoa MD CV CARDIAC [...] mg/dl EXTERNAL LAB SCRIBED eGFR in NonAfrican Gabonese 31(A) 60 - L EXTERNAL LAB Blood specimen (specimen) 10/27/2020 us Nicolás Diego MD LAB BLOOD ORDERABLES Fi nal Result EXTERNAL LAB * Lipid panel (03/29/2019 11:26 PM REACTOR KETTLE OPERATOR) Cholesterol 142 30 - 199 mg/dL [facility] Comment: Interpretive Data Ages < or [...] revised on 2017. Triglycerides 142 <=149 mg/dL [facility] Comment: Interpretive Data Ages < or [...] revised on 2017. HDL 61 >=40 mg/dL [facility] Comment: Interpretive Data Ages < or [...] 2017. LDL, calculated 53 <=129 mg/dL [facility] Comment: Interpretive Data Ages < or [...] on 2017. Non-HDL Cholesterol 81 mg/dL [facility] Comment: Interpretive Data Ages < or = [...] last revised on 2017. Chol/HDL ratio 2 [facility] Blood specimen (specimen) 03/29/2019 11:26 PM REACTOR KETTLE OPERATOR 03/30/2019 12:01 AM REACTOR KETTLE OPERATOR us Amilcar Mayer MD LAB BLOOD ORDERABLES Final Res ult [facility] Department [place] [address] * (ABNORMAL) POCT hemoglobin A1c (03/08/2019 9:22 AM REACTOR KETTLE OPERATOR) Hgb A1C, POC 7.3(H) 4.0 - 6.0 % [facility] Est Average Gluc POC 163 mg/dL [facility] Comment: The ADA recommends reporting an estimated Average Glucose (eAG) with all Hemoglobin A1c results using the equation derived from a study of 507 normal and diabetic adults. Minority populations were underrepresented and children were not included. (Diabetes Care 31:1746-9867, 2008). The eAG is not equivalent to a fasting glucose. Blood specimen (specimen) 03/08/2019 9:22 AM REACTOR KETTLE OPERATOR 03/08/2019 9:22 AM REACTOR KETTLE OPERATOR Amilcar Mayer MD POINT OF CARE TEST ORDERABLES Final Result [facility] Department [place] [address] from Last 3 Months or Most Recently Relevant to Health Maintenance Insurance [employer] MEDICARE MEDICARE [employer] Advance Directives For more information, please contact: [phone] * Full Code (Latest Code Status on File) Date Activated Date Inactivated Comments 03/29/2019 12:15 PM 03/30/2019 3:43 PM * Full Code Date Activated Date Inactivated Comments 03/06/2019 9:42 AM 03/06/2019 4:19 PM Care Teams Monument Setter Helper Relationship Specialty Start Date End Date Eulogio Sullivan MD [address] [facility] [address] [place] [address] PCP - General 04/20/11 Rohith Corona MD [address] [place], [place] [id number] Referring Physician Obstetrics and Gynecology 02/16/19 Jamari Ochoa MD [address] [place] [address] Consulting Physician Cardiology 02/16/19
--- OUTSIDE RECORDS SUMMARY | 2024-11-07 07:28 | XMS_ITS | Clinical Summary ---
Author Organization [facility] Address [address] [place] [address] Care Team Providers Care Admission Nurse Name Role Phone Eulogio Sullivan MD Primary Care Provider [phone] Source Comments [facility],non-owned Affiliates and Associated Physician Practices is amultiple site organization consisting of ambulatory clinics and hospital sitesin [place], [place], [place] and [place]. This disclosure is being madepursuant to the Care Everywhere program and may not contain all information available regarding this patient. Last updated 17.[facility] Allergies Active Allergy Reactions Criticality Noted Date Comments Losartan Urticaria Medium 02/14/2019 Medications * Be aware that medications may not be up to date on this document. Alwaysverify current medications with the patient. rivaroxaban (XARELTO) 20 MG tablet Take 20 [...] of Binge Drinking Not on file 01/27 Comments No Sex and Gender Information Value Date Recorded Sex Assigned at Not on file Legal Sex Female 11:40 AM SPECIALTY MANUFACTURING SUPERVISOR Gender Identity Not on file Sexual Orientation Not on file Last Filed Vital Signs Vital Sign Reading Time Taken Comments Blood Pressure 196/80 02/14/2019 2:09 PM SPECIALTY MANUFACTURING SUPERVISOR Pulse 77 02/14/2019 2:09 PM SPECIALTY MANUFACTURING SUPERVISOR Temperature - - Respiratory Rate - - Oxygen Saturation - - Inhaled Oxygen Concentration - - Weight 63.5 kg (140 lb) 02/14/2019 2:09 PM SPECIALTY MANUFACTURING SUPERVISOR Height 162.6 cm (5' 4) 02/14/2019 2:09 PM SPECIALTY MANUFACTURING SUPERVISOR Body Mass Index 24.03 02/14/2019 2:09 PM SPECIALTY MANUFACTURING SUPERVISOR Plan of Treatment Health Maintenance Due Date Last Done Comments BONE DENSITY TESTING 1942 DTAP/TDAP/TD VACCINES (1 - Tdap) 1961 PNEUMOCOCCAL VACCINE 50+ (1 of 1 - PCV) 1992 ZOSTER VACCINE (1 of 2) 1992 Respiratory Syncytial Virus (RSV) Vaccine Pt: or over 60 yrs (1 - 1-dose 75+ series) 2017 COVID-19 VACCINE (1 - 2023-2 5 season) 2023 DEPRESSION SCREENING 03/28/2024 INFLUENZA VACCINE (#1) 2024 HEPATITIS B VACCINE Aged Out No [...] on patient's age to complete this topic Insurance MEDICARE Care Teams Admission Nurse Relationship Specialty Start Date End Date Eulogio Sullivan MD [address] [facility] [address] [place] [address] PCP - General 02/12/19
[2024-11-07 08:29] LABS: Albumin Level 4.4 g/dL (3.5-5.1); Anion Gap 11 mmol/L (4-12); Blood Urea Nitrogen 38 mg/dL (7-17); Calcium 10.2 mg/dL (8.4-10.2); Carbon Dioxide 23 mmol/L (22-30); Chloride 104 mmol/L (98-107); Estimated Glomerular Filt Rate 25; Glucose 128 mg/dL (65-110); Potassium 4.0 mmol/L (3.4-5.0); Sodium 138 mmol/L (137-145)
[2024-11-07 09:29] LABS: Parathyroid Intact 27.0 pg/mL (14.5-75.2)
[2024-11-07 09:49] LABS: Total Protein Urine Random 447 mg/dL; Ur Ttl Prot Creatinine Ratio 8.31 mg/mg (0-0.20)
== END 2024-11-07 07:25 | disposition home or self-care (01) ==
LOC: ANHLAB 07:25
PROVIDERS: PCP Internal Medicine; Visit Provider Internal Medicine Nephrology
DX: I12.9 Hypertensive chronic kidney disease with stage 1 through stage 4 chronic kidney disease, or unspecified chronic kidney disease (principal); E11.22 Type 2 diabetes mellitus with diabetic chronic kidney disease; N18.4 Chronic kidney disease, stage 4 (severe); N25.81 Secondary hyperparathyroidism of renal origin; E55.9 Vitamin D deficiency, unspecified
CPT/HCPCS: 36415; 80069; 82306; 82570; 83970; 84156

== ENCOUNTER 2024-11-12 07:23 | Outpatient (CLI) | payer MEDICARE, SELFPAY ==
--- OUTSIDE RECORDS SUMMARY | 2024-11-12 07:28 | XMS_ITS | Clinical Summary ---
Author Organization [facility] Address [address] [place] [address] Care Team Providers Care Commercial Food Instructor Name Role Phone Eulogio Sullivan MD Primary Care Provider [phone] Rohith Corona MD Unavailable [phone] Jamari Ochoa MD Unavailable [phone] Allergies Active Allergy Reactions Criticality Noted Date Comments Rock Inhibitors Unknown 06/29/2010 Losartan Hives Medium Medications rosuvastatin (CRESTOR) 10 mg tablet take 1 tablet (10MG) by oral route every day 0 01/17/20 12 Active allopurinol (ZYLOPRIM) 300 mg tabletIndicatio ns:prevention of acute gout attack Take 1 tablet (300 mg total) by mouth 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 07/13/19 18 Active blood glucose diagnostic strip 1 each by Not Applicable route as directed 08/25/19 19 Active pen needle, diabetic 32 gauge x 32 needle 1 Stick by Not Applicable route as directed 12/21/19 19 Active multivitamin capsuleIndicati ons:Vitamin Deficiency Prevention Take 1 capsule by mouth 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 Circulation. 2016;133;v930-w443. Class I: Catheter ablation of the CTI [...] 11:19 AM CDT): The patient has a DUO3HS4-MEUt score of 6 (annualized risk of stroke HIGH%). I have therefore recommended that she remain anticoagulated for thromboprophylaxis. Endometrial cancer 02/16/2019 Overview (02/16/2019): Added automatically from request for surgery [id number] Encounter for antineoplastic chemotherapy 2018 Overview (02/16/2019): Added automatically from request for surgery [id number] CAD (coronary artery disease) 09/23/2016 S/P CABG (coronary artery bypass graft) 09/24/19 17 Complete heart block 09/23/2016 Presence of cardiac pacemaker 09/23/2016 Overview (08/29/2020): Medtronic Dual Pacemaker Dx; SSS, CHB. Gen change 06/01/2019-Fleissner, chronic leads 06/1999. Alternate carelink remote and office checks Q6 mo. 06/01/2019-carelink relay monitor ordered. JR Atrial lead impedance 300-500 ohms, bipolar 4767-8557 ohms-normal function. Assessment & Plan (10/19/2020 11:21 [...] Department Care Team Description 10/01/2024 Orders Only [facility] Cardiology [address] [place] [address] [place] [phone] Jamari Ochoa MD Cardiac pacemaker in situ (Primary Dx); Complete heart block (HCC); Presence of cardiac pacemaker; Permanent atrial fibrillation (HCC) 09/18/2024 7:45 AM CDT Ancillary Procedure [facility] Cardiology [address] [place] [address] [address] 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 Gender Identity Not on file Sexual Orientation [...] history exists Medical Devices Implanted Type Area Manager Heart Device Identifier Shelf Expiration Date Model / Serial / Lot [employer] [id number] System 6-12fr Mvp Venous Closure Vascade - [id number] - [id number] Implanted:Qty: 1 on 11/04/2020 by Nicolás Diego MD at [facility] Collagen [employer] 09/01/2022 800-612C- [id number] / [id number] / [id number] [employer] [id number] Vascade 6/7fr Bioabsorbable Vascular System Compression Collagen - [id number] - [id number] Implanted:Qty: 1 on 11/04/2020 by Nicolás Diego MD at [facility] [employer] 06/30/2022 700-580I- 05U / [id number] 05A / [id number] [employer] [id number] Vascade 6/7fr Bioabsorbable Vascular System Compression Collagen - [id number] - [id number] Implanted:Qty: 1 on 11/04/2020 by Nicolás Diego MD at [facility] [employer] 06/30/2022 700-580I- 05U / [id number] [id number] / [id number] Pacemaker- 3 Implanted: 013 by Jamari Ochoa MD (Quantity not on file) Pacemaker Chest Medtronic SSS, CHB ADAPTA / [id number] / CHRONIC LEADS 06/1999 Procedures Procedure Name Priority Date/Time Associated Diagnosis Comments DEVICE CHECK - REMOTE Routine 09/26/2024 8:14 AM CDT Cardiac pacemaker in situ Complete heart block (HCC) SSS (sick sinus syndrome) (HCC) Atrial fibrillation and flutter BASIC METABOLIC PANEL Routine 10/27/2020 Typical atrial flutter (HCC) Presence of cardiac pacemaker LIPID PANEL Routine 03/29/2019 11:26 PM SENIOR ENVIRONMENTAL TECHNICIAN POCT HEMOGLOBIN A1C Routine 03/08/2019 9 :22 AM SENIOR ENVIRONMENTAL TECHNICIAN from Last 3 Months or Most Recently Relevant to Health Maintenance Results * DEVICE CHECK - REMOTE (09/26/2024 8:14 AM CDT) Anatomical Region Laterality Modality Other Narrative 11/05/2024 7:36 AM CDT Medtronic Dual Pacemaker Dx; SSS, CHB. Gen change 06/01/2019-Don, chronic leads 06/1999. Alternate carelink remote and office checks Q6 mo. 06/01/2019-carelink relay monitor ordered. JR Atrial lead impedance 300-500 ohms, bipolar 4135-5712 ohms-normal function. Routine DDDR Pacemaker Remote. Transmission attached. Battery status: 2.90 , 1.6 remaining battery life to MARLENE. Stable lead impedances, pacing and sensing thresholds. Presenting rhythm: AP/BUTANE COMPRESSOR OPERATOR AP-62.2%, BUTANE COMPRESSOR OPERATOR-100.0% 2294 AT/AF episodes noted, longest episode was 4 hours and 33 minutes in duration, IEGM demonstrates AFib. AF [place] 35.3%. No Ventricular high rate episodes detected. [...] mg/dl EXTERNAL LAB SCRIBED eGFR in NonAfrican [place]ian 31(A) 60 - L EXTERNAL LAB Blood specimen (specimen) 10/27/2020 us Nicolás Diego MD LAB BLOOD ORDERABLES Fi nal Result EXTERNAL LAB * Lipid panel (03/29/2019 11:26 PM SENIOR ENVIRONMENTAL TECHNICIAN) Cholesterol 142 30 - 199 mg/dL [facility] Comment: Interpretive Data Ages < or [...] revised on 2017. Triglycerides 142 <=149 mg/dL [facility] Comment: Interpretive Data Ages < or [...] revised on 2017. HDL 61 >=40 mg/dL [facility] Comment: Interpretive Data Ages < or [...] 2017. LDL, calculated 53 <=129 mg/dL [facility] Comment: Interpretive Data Ages < or [...] on 2017. Non-HDL Cholesterol 81 mg/dL [facility] Comment: Interpretive Data Ages [...] [facility] Blood specimen (specimen) 03/29/2019 11:26 PM SENIOR ENVIRONMENTAL TECHNICIAN 03/30/2019 12:01 AM SENIOR ENVIRONMENTAL TECHNICIAN us Amilcar Mayer MD LAB BLOOD ORDERABLES Final Res ult [facility] [place] [address] * (ABNORMAL) POCT hemoglobin A1c (03/08/2019 9:22 AM SENIOR ENVIRONMENTAL TECHNICIAN) Hgb A1C, POC 7.3(H) 4.0 - 6.0 % [facility] Est Average Gluc POC 163 mg/dL [facility] Comment: The ADA recommends reporting an estimated Average Glucose (eAG) with all Hemoglobin A1c results using the equation derived from a study of 507 normal and diabetic adults. Minority populations were underrepresented and children were not included. (Diabetes Care 31:1246-5068, 2008). The eAG is not equivalent to a fasting glucose. Blood specimen (specimen) 03/08/2019 9:22 AM SENIOR ENVIRONMENTAL TECHNICIAN 03/08/2019 9:22 AM SENIOR ENVIRONMENTAL TECHNICIAN Amilcar Mayer MD POINT OF CARE TEST ORDERABLES Final Result [facility] [place] [address] from Last 3 Months or Most Recently Relevant to Health Maintenance Insurance [employer] MEDICARE MEDICARE [employer] Advance Directives For more information, please contact: [phone] * Full Code (Latest Code Status on File) Date Activated Date Inactivated Comments 03/29/2019 12:15 PM 03/30/2019 3:43 PM * Full Code Date Activated Date Inactivated Comments 03/06/2019 9:42 AM 03/06/2019 4:19 PM Care Teams Commercial Food Instructor Relationship Specialty Start Date End Date Eulogio Sullivan MD [address] [facility] [address] [place] [address] PCP - General 04/20/11 Rohith Corona MD [address] [place], [place] [id number] Referring Physician Obstetrics and Gynecology 02/16/19 Jamari Ochoa MD [address] [place] [address] Consulting Physician Cardiology 02/16/19
--- OUTSIDE RECORDS SUMMARY | 2024-11-12 07:28 | XMS_ITS | Clinical Summary ---
Author Organization [facility] Address [address] [place] [address] Care Team Providers Care Classification Case Manager Name Role Phone Eulogio Sullivan MD Primary Care Provider [phone] Source Comments [facility],non-owned Affiliates and Associated Physician Practices is amultiple site organization consisting of ambulatory clinics and hospital sitesin [place], [place], [place] and [place]. This disclosure is being madepursuant to the Care Everywhere program and may not contain all information available regarding this patient. Last updated 17.[facility] Allergies Active Allergy Reactions Criticality Noted [...] on file Legal Sex Female 11:40 AM REMOTE CONTROL ASSEMBLER Gender Identity Not on file Sexual Orientation Not on file Last Filed Vital Signs Vital Sign Reading Time Taken Comments Blood Pressure 196/80 02/14/2019 2:09 PM REMOTE CONTROL ASSEMBLER Pulse 77 02/14/2019 2:09 PM REMOTE CONTROL ASSEMBLER Temperature - - Respiratory Rate - - Oxygen Saturation - - Inhaled Oxygen Concentration - - Weight 63.5 kg (140 lb) 02/14/2019 2:09 PM REMOTE CONTROL ASSEMBLER Height 162.6 cm (5' 4) 02/14/2019 2:09 PM REMOTE CONTROL ASSEMBLER Body Mass Index 24.03 02/14/2019 2:09 PM REMOTE CONTROL ASSEMBLER Plan of Treatment Health Maintenance Due Date [...] complete this topic Insurance MEDICARE Care Teams Classification Case Manager Relationship Specialty Start Date End Date Eulogio Sullivan MD [address] [facility] [address] [place] [id number] PCP - General 02/12/19
--- OUTSIDE RECORDS SUMMARY | 2024-11-12 07:28 | XMS_ITS | Clinical Summary ---
Author Organization [facility] Address [address] [place] [address] Phone Care Team Providers Care Transit Clerk Name Role Phone Eulogio Sullivan MD Primary Care Provider [phone] Allergies Active Allergy Reactions Criticality Noted Date [...] 15 mg by mouth daily 04/01/2019 Active Ethel-3 1000 MG capsule Take 1 capsule by [...] 07/23/2020 Active Cholecalciferol (Vitamin D3) 1.25 MG (59837 UT) capsule 01/21/2021 Active Novofine Pen Needle [...] PAGAN 3rd, [place], Teodoro CoffmanD, Clint SC, Adiran JH, Becki BD, Jeffrey B, Kevin AM, Byron W-K, Elvira CM, Al-Efrain SM. 2015 ACC/AHA/HRS guideline for the management of adult patients with supraventricular tachycardia: a report of the [place] [employer]/[place] [employer] Association Task Force on Clinical Practice Guidelines and the Heart Rhythm Society. Circulation. 2016;133;o893-n736. Class I: Catheter ablation of the CTI is useful in patients with atrial flutter that is either symptomatic or refractory to pharmacological rate control. Cancer of endometrium 02/16/2019 Overview (06/09/2020): Added automatically from request for surgery [id number] Paroxysmal atrial fibrillation 01/31/2018 Complete heart block [...] on file Legal Sex Female 2:25 PM [facility] Gender Identity Not on file Sexual Orientation [...] (#1) 2024 4, 12/25/2012, 01/05/2012 Insurance MEDICARE [facility] [address] Care Teams Transit Clerk Relationship Specialty Start Date End Date Eulogio Sullivan MD [address] [place] [address] PCP - General Internal Medicine 2/4/21
--- OUTSIDE RECORDS SUMMARY | 2024-11-12 07:28 | XMS_ITS | Encounter Summary ---
Author Organization [facility] Address [address] [place] [id number] Care Team Providers Care Software Quality Specialist Name Role Phone Eulogio Sullivan MD Primary Care Provider [phone] Rohith Corona MD Unavailable [phone] Jamari Ochoa MD Unavailable [phone] Encounter Details Date Type Department Care Team (Late st Contact Info) Description 04/13/2016 Orders Only [facility] ProviderJessy MD [address] [place] [id number] Social History Tobacco Use Types Packs/Day Years Used Date Smoking Tobacco: Former Cigarettes Q uit: 03/28/2009 Alcohol Use Standard Drinks/Week Comments No 0 (1 standard drink = 0.6 oz pur e alcohol) Comments Unknown Sex and Gender Information Value Date Recorded Sex Assigned at Not on file 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
[2024-11-12 08:03] LABS: Hematocrit 44.3 % (37.0-47.0); Hemoglobin 13.6 g/dL (12.0-15.0); Immature Granulocyte Percent A 0.3 % (0-0.5); Lymphocytes Absolute Auto 3.13 K/mm3 (0.9-3.2); Mean Corpuscular HGB Conc 30.7 g/dl (32-36); Mean Corpuscular Hemoglobin 31.4 pg (26-34); Mean Corpuscular Volume 102.3 fl (80-100); Nucleated Red Blood Cells Absolute Auto 0.000 K/mm3 (0.0-0.012); Nucleated Red Blood Cells Perc 0.0 % (0.0-0.2); Platelet Count Result 154 k/mm3 (150-375); Red Blood Count 4.33 M/mm3 (4.2-5.4); White Blood Count 7.5 K/mm3 (4.5-10.0)
[2024-11-12 08:09] LABS: Add Urine Microscopic? YES; Appearance Urine Clear (Clear); Glucose Urine UA 3+ mg/dL (Negative); Leukocyte Esterase Ur 1+ LEU/UL (Negative); Nitrate Urine Negative (Negative); Specific Grav Ur 1.016 (1.001-1.035)
[2024-11-12 08:33] LABS: Alanine Aminotransferase 21 U/L (6-35); Albumin Level 4.2 g/dL (3.5-5.1); Alkaline Phosphatase 107 U/L (38-126); Anion Gap 8 mmol/L (4-12); Aspartate Amino Transferase 55 U/L (14-36); Bilirubin,Total 0.8 mg/dL (0.2-1.3); Blood Urea Nitrogen 38 mg/dL (7-17); Calcium 10.7 mg/dL (8.4-10.2); Carbon Dioxide 26 mmol/L (22-30); Chloride 104 mmol/L (98-107); Cholesterol 206 mg/dL (0-200); Estimated Glomerular Filt Rate 23; Glucose 125 mg/dL (65-110); HDL Direct 98 mg/dL; Potassium 4.9 mmol/L (3.4-5.0); Sodium 138 mmol/L (137-145); Total Protein 8.5 g/dL (6.3-8.2); Triglycerides 157 mg/dL (<150)
[2024-11-12 08:35] LABS: Hemoglobin A1C 7.0 % (<5.7)
== END 2024-11-12 07:24 | disposition home or self-care (01) ==
LOC: ANHLAB 07:24
PROVIDERS: PCP Internal Medicine; Visit Provider Internal Medicine
DX: I12.9 Hypertensive chronic kidney disease with stage 1 through stage 4 chronic kidney disease, or unspecified chronic kidney disease (principal); E11.22 Type 2 diabetes mellitus with diabetic chronic kidney disease; N18.2 Chronic kidney disease, stage 2 (mild); Z79.4 Long term (current) use of insulin; E78.2 Mixed hyperlipidemia; Z79.899 Other long term (current) drug therapy
CPT/HCPCS: 36415; 80053; 80061; 81001; 83036; 85025; 87086